=== PATIENT | female | born 1985 | race Caucasian/White ===

== ENCOUNTER → 2020-06-21 | Outpatient (CLI) | payer OTHER, SELFPAY ==
[2020-06-21 14:24] VITALS: BMI 26.3
[2020-06-26 18:52] LABS: HPV APTIMA, High Risk Negative (Negative)
== END | disposition home or self-care (01) ==
LOC: LABSPEC 16:37
PROVIDERS: PCP Family Medicine; Referring Provider Nurse Practitioner Women's Health; Visit Provider Nurse Practitioner Women's Health
DX: N89.8 Other specified noninflammatory disorders of vagina (principal); Z12.4 Encounter for screening for malignant neoplasm of cervix
CPT/HCPCS: 87070; 87205; 87624; 88175; G0145

== ENCOUNTER → 2020-10-16 | Outpatient (CLI) | payer OTHER, SELFPAY | END | disposition home or self-care (01) | PROVIDERS: PCP Family Medicine; Referring Provider Physician Assistant Surgical; Visit Provider Physician Assistant Surgical | DX: U07.1 COVID-19 (principal) | CPT/HCPCS: 87635; U0005; U0003 ==

== ENCOUNTER → 2022-01-09 | Outpatient (CLI) | payer OTHER, SELFPAY ==
[2022-01-09 13:48] LABS: Prolactin 13.6 ng/mL; T4 Free Direct 1.08 ng/dL (0.76-1.46)
[2022-01-14 11:31] LABS: Testosterone Free 2.1 pg/mL (0.0-4.2)
[2022-01-16 21:30] LABS: 17-Hydroxyprogesterone 45 ng/dL (.)
== END | disposition home or self-care (01) ==
PROVIDERS: PCP Family Medicine; Referring Provider Registered Nurse; Visit Provider Registered Nurse
DX: N92.6 Irregular menstruation, unspecified (principal); Z13.29 Encounter for screening for other suspected endocrine disorder
CPT/HCPCS: 36415; 82627; 83498; 84146; 84402; 84439; 84443; 82626

== ENCOUNTER → 2022-01-13 | Outpatient (CLI) | payer OTHER, SELFPAY ==
--- NOTE | 2022-01-13 11:21 | US_ITS ---
STUDY: ULTRASOUND TRANSVAGINAL CLINICAL: Female, 36 years old. Irregular menses TECHNIQUE: Transvaginal COMPARISON: None. FINDINGS: Normal uterine size measuring 9.2 x 5.3 x 4.0 cm in maximal craniocaudal dimension. There are no myometrial masses. Normal endometrial thickness measuring 7.7 mm. There are no endometrial masses, and there is no fluid in the endometrial cavity. Nabothian cysts in the uterine cervix. Small amount of fluid in the cervical canal. Normal right ovary, measuring 2.5 x 1.9 x 1.6 cm. There are multiple follicles without a dominant cyst. Normal left ovary, measuring 4.1 x 1.6 x 1.8 cm. There are multiple follicles, with the largest measuring 1.9 x 1.7 x 1.6 cm. There is no free fluid in the pelvis. Polycystic ovary disease: No. US/Transvaginal Non- IMPRESSION: Multiple nabothian cysts. Bilateral ovarian follicles. Electronically Signed: Surinder Harris MD at 16:56 EST ,
== END | disposition home or self-care (01) ==
LOC: US 11:21
PROVIDERS: PCP Family Medicine; Referring Provider Registered Nurse; Visit Provider Registered Nurse
DX: N92.6 Irregular menstruation, unspecified (principal)
CPT/HCPCS: 76830

== ENCOUNTER 2024-05-22 18:50 | Emergency (ER) | payer OTHER, SELFPAY ==
[2024-05-22 18:53] VITALS: BP 109/78; PULSE 71; RESP 18; TEMP 37; O2SAT 100; BMI 26.9
--- NOTE | 2024-05-22 19:19 | EX.ED.DYSGE1 ---
HPI <MCKAY Shahid - Last Filed: 05/23/24 11:34> History of Present Illness Chief Complaint: Fever Narrative Narrative: 38-year-old female with no past medical history states last night she developed a fever, chills, and generalized body pain. [place] like her skin was painful to the touch. Her temperature today ranged anywhere from 98 to 100 ?F. She took Excedrin around 1 PM. She denies nausea, vomiting, neck pain or stiffness, chest pain, shortness of breath, or upper respiratory symptoms. No vomiting or diarrhea. No dysuria. PFSH <MCKAY Shahid - Last Filed: 05/23/24 11:34> PFSH Home Medications ?Medication ?Instructions ?Recorded ?Last Taken ?Type dextroamphetamine-amphetamine 10 10 mg PO DAILY 02/03/17 05/21/24 History mg tablet (Adderall) dextroamphetamine-amphetamine 20 20 mg PO DAILY 02/03/17 05/20/24 History mg tablet (Adderall) Allergy/AdvReac Type Severity Reaction Status Date / Time No Known Allergies Allergy Verified 05/22/24 19:04 Surgical History History of carpal tunnel surgery History of breast augmentation Social History household members: spouse and children number of children: 1 current occupational status: employed current occupation: [employer] [place] history of recent travel: No sexually active: Yes Smoking Status: Never smoker alcohol intake: never substance use type: does not use what type of physical activity do you participate in: aerobics and weight training frequency: 3-4 times per week seatbelt use: always do you feel safe at home: Yes additional social history: - Tal CASTILLO <MCKAY Shahid - Last Filed: 05/23/24 11:34> ROS ED ROS Narrative Constitutional: Positive for fever, chills, malaise. CVS: Negative for chest pain. Respiratory: Negative for shortness of breath, cough. GI: Negative for abdominal pain, nausea, vomiting, diarrhea. : Negative for dysuria. Neuro: Positive for headache. EXAM <MCKAY Shahid - Last Filed: 05/23/24 11:34> Physical Exam Narrative Exam Narrative: CONST: Patient sitting in no acute distress. EYES: Normal inspection. ENT: Normal inspection, moist mucous membranes. NECK: Normal inspection. No meningismus. RESP: No respiratory distress, CTAB. CVS: Regular rate and rhythm, no murmur, no gallop. ABD: Soft and nontender, no guarding or rebound, nondistended. SKIN: Color normal, no rash, warm, dry, intact. EXTREMITIES: Normal appearance, no pedal edema. NEURO: Alert and answering questions appropriately. PSYCH: Normal affect. Const Vital Signs: 05/22/24 18:53 05/22/24 19:15 05/22/24 20:42 Temperature 98.6 F 98.3 F Temperature Source Oral Pulse Rate 71 77 Respiratory Rate 18 16 Respiratory Effort Normal Respiratory Pattern Normal Blood Pressure 109/78 110/78 Blood Pressure Mean 88 88 Pulse Ox 100 98 Oxygen Delivery Method Room Air <Dr. Km Lock DO - Last Filed: 05/22/24 21:37> Physical Exam Const Vital Signs: 05/22/24 18:53 05/22/24 19:15 05/22/24 20:42 Temperature 98.6 F 98.3 F Temperature Source Oral Pulse Rate 71 77 Respiratory Rate 18 16 Respiratory Effort Normal Respiratory Pattern Normal Blood Pressure 109/78 110/78 Blood Pressure Mean 88 88 Pulse Ox 100 98 Oxygen Delivery Method Room Air [facility] <MCKAY Shahid - Last Filed: 05/23/24 11:34> [facility] Narrative Medical decision making narrative: 38-year-old female presents with fever, headache and generalized body pain over the last 2 days. She has no other symptoms. She appears well and nontoxic and is afebrile and hemodynamically stable here. Exam is completely benign. She has no signs of meningitis encephalitis. Her viral swab for COVID/flu/RSV is negative. She had some improvement after IM Toradol. At this time since she has no other symptoms like a cough or dysuria I do not think any other testing would be helpful. I recommended [id number] analgesia and discussed return precautions. She was discharged in stable condition. <Dr. Km Lock DO - Last Filed: 05/22/24 21:37> [facility] History & Record Review Discussion w/independent historian: Patient Lab Data Attestation: I reviewed the patient's lab results. Treatment and Re-Evaluation :: I have personally performed a face to face assessment of the patient and have reviewed the CRIO Note. I performed a substantive portion of the visit including all aspects of the following. My berry findings include: History is 38-year-old female presenting to the emergency room with recurrent fever over the past 24 hours. She notes hyperesthesia of the skin. She denies cough runny nose sore throat vomiting diarrhea. She does endorse a headache. No rashes. Exam is afebrile vital signs are stable. Patient has no meningeal signs. There is no photophobia. No stiff neck. Lung sounds are clear and equal. Oropharyngeal exam is normal. Medical Decison Making COVID influenza and RSV swab was negative. Clinically I would suspect a viral illness but the patient does not really have localizing signs of infection. Would recommend continued supportive care monitoring for any changes return if worsening or concerns Discharge Plan Triage Chief Complaint: Fever Other Complaint: Headache ED Midlevel Provider: Mami Camarena ED Provider: Km Lock Dx/Rx/DC Orders Clinical Impression: Acute viral syndrome, Myalgia Instructions: ED Myalgias, ED Viral Syndrome (Adult) Prescriptions: No Action dextroamphetamine-amphetamine [Adderall] 10 MG tablet 10 mg PO DAILY dextroamphetamine-amphetamine [Adderall] 20 MG tablet 20 mg PO DAILY Primary Care Provider: Alex Banda Referrals: Alex Banda DO [Primary Care Provider] - Activity Restrictions/Additional Instructions: You tested negative for COVID/influenza/RSV. At this time with your fever and bodyaches I suspect you have some kind of viral illness. You can alternate Tylenol and ibuprofen every 3 hours as needed, rest and drink plenty of fluids. If you develop new or worsening symptoms please be reevaluated. Print Language: Azeri Disposition Disposition: Home, Self Care Discharge Date/Time: 05/22/24 20:43
[2024-05-22] MEDS: Ketorolac 15 MG/ML Vial IM (19:34)
[2024-05-22 20:42] VITALS: BP 110/78; PULSE 77; RESP 16; TEMP 36.8; O2SAT 98
== END 2024-05-22 20:43 | disposition home or self-care (01) ==
PROVIDERS: Emergency Provider Emergency Medicine; PCP Family Medicine; Visit Provider Emergency Medicine
DX: B34.9 Viral infection, unspecified (principal); M79.10 Myalgia, unspecified site; R51.9 Headache, unspecified; R20.3 Hyperesthesia
CPT/HCPCS: 87631; 96372; 99283

== ENCOUNTER → 2024-09-16 | Outpatient (CLI) | payer OTHER, SELFPAY ==
--- NOTE | 2024-09-16 07:29 | BI_ITS ---
EXAM: SCRN MAMM (CAD)W/EVELINA BILAT DATE: 09/16/2024 CLINICAL HISTORY: F, Age 38 y/o , SCREENING TECHNIQUE: SCRN MAMM (CAD)W/EVELINA BILAT COMPARISON: Baseline examination, no priors. FINDINGS: TISSUE DENSITY: There are scattered areas of fibroglandular density. Bilateral Breast Mammographic Findings: There are bilateral retro-pectoral silicone gel implants. No significant masses, calcifications or other abnormalities are identified. BI/SCRN MAMM (CAD)W/EVELINA BILAT IMPRESSION: There is no mammographic evidence of malignancy. OVERALL FINAL ASSESSMENT BI-RADS 1: NEGATIVE. RECOMMENDATION: Routine annual follow-up in 1 Year A letter with findings and recommendations will be mailed to the patient. Reading Location: [id number]
--- NOTE | 2024-09-16 07:29 | BI_ITS ---
EXAM: SCRN MAMM (CAD)W/EVELINA BILAT DATE: 09/16/2024 CLINICAL HISTORY: F, Age 38 y/o , SCREENING TECHNIQUE: SCRN MAMM (CAD)W/EVELINA BILAT COMPARISON: Baseline examination, no priors. FINDINGS: TISSUE DENSITY: There are scattered areas of fibroglandular density. Bilateral Breast Mammographic Findings: There are bilateral retro-pectoral silicone gel implants. No significant masses, calcifications or other abnormalities are identified. BI/SCRN MAMM (CAD)W/EVELINA BILAT IMPRESSION: There is no mammographic evidence of malignancy. OVERALL FINAL ASSESSMENT BI-RADS 1: NEGATIVE. RECOMMENDATION: Routine annual follow-up in 1 Year A letter with findings and recommendations will be mailed to the patient. Reading Location: [id number]
--- OUTSIDE RECORDS SUMMARY | 2024-09-16 07:42 | XMS RPT_ITS | CCD ---
Author Organization [facility] CliniSynm Care Team Providers Care Ledger Clerk Name Role Phone Unavailable Primary Care Provider Unavailruslan Suárez MD, Real Mullen Primary Care Provider Rosa Isela Lanza Unavailable Pool STRINGER, Rosa Isela Macedo Primary Care Provider Unavailable Unavailable Dr. ROSA ISELA LANZA Attending Unavail able POOL, Dr. ROSA ISELA MACEDO Referring Unavail able POOL, Dr. ROSA ISELA MACEDO Primary Care Unavail able POOL, Dr. ROSA ISELA MACEDO Primary Care Unavail able POOL, Dr. ROSA ISELA MACEDO Attending Unavail able POOL, Dr. ROSA ISELA MACEDO Referring Unavail able POOL, Dr. ROSA ISELA MACEDO Primary Care Unavail able Manoj Ojeda Attending Unavailable POOL, Dr. ROSA ISELA MACEDO Referring Unavail able Manoj Ojeda Attending Unavailable Manoj Ojeda Referring Unavailable POOL, Dr. ROSA ISELA MACEDO Primary Care Unavail able Manoj Ojeda Attending Unavailable Manoj Ojeda Referring Unavailable POOL, Dr. ROSA ISELA MACEDO Primary Care Unavail able Manoj Ojeda Attending Unavailable Manoj Ojeda Referring Unavailable POOL, Dr. ROSA ISELA MACEDO Primary Care Unavail able Rosa Isela Lanza MD Primary Care Provider Rosa Isela Lanza MD Primary Care Provider Dr. Alex Katz Primary Care Provider [phone] Dr. Alex Katz Referring Provider MACRINA Dumont Attending Provider [phone] Dr. Manoj Ojeda Admitting Unavail able Rusty, Dr. Manoj Machado Attending Unavail able Dr. Manoj Ojeda Referring Unavail able Pool, Dr. Rosa Isela Macedo Primary Care Unavail able Rusty, Dr. Manoj Machado Admitting Unavail able Rusty, Dr. Manoj Machado Attending Unavail able Rusty, Dr. Manoj Machado Referring Unavail able Pool, Dr. Rosa Isela Macedo Primary Care Unavail able LILY II, MARILYNN MABRY Attending Un available ROSA ISELA LANZA Primary Care Unavailable HASSMANN II, MARILYNN MABRY Admitting Un available HASSMANN II, MARILYNN MABRY Referring Un available ROSA ISELA LANZA Primary Care Unavailable HASSMANN II, MARILYNN MABRY Attending Un available ROSA ISELA LANZA Primary Care Unavailable BAUDILIO FIELD Attending Unavaila ble ROSA ISELA LANZA Primary Care Unavailable BAUDILIO FIELD Referring Unavaila ble ROSA ISELA LANZA Primary Care Unavailable BAUDILIO FIELD Admitting Unavaila ble BAUDILIO FIELD Referring Unavaila ble ROSA ISELA LANZA Primary Care Unavailable BAUDILIO FIELD Admitting Unavaila ble BAUDILIO FIELD Attending Unavaila ble ROSA ISELA LANZA Primary Care Unavailable Rosa Isela Lanza MD Primary Care Provider LILY SMITH, MARILYNN MABRY Attending Un available ROSA ISELA LANZA Primary Care Unavailable Alex Katz DO Primary Care Provider ALEX KATZ Primary Care Unavailable MEIR FARRELL Referring Unavailable ALEX KATZ Primary Care Unavailable MEIR FARRELL Attending Unavailable Rosa Isela Lanza MD Primary Care Provider Dr. Alex Katz DO Primary Care Provider Dr. Km Lock DO Emergency Provider Alex Katz Primary Care Unavailable Alex Katz Referring Unavailable Raina Singer Attending Unavailable Km Lock Attending Unavailable Alex Katz Primary Care Unavailable GENIE RODAS Referring Unavailable ROSA ISELA LANZA Primary Care Unavailable ROSA ISELA LANZA Attending Unavailable ROSA ISELA LANZA Primary Care Unavailable ROSA ISELA LANZA Attending Unavailable ROSA ISELA LANZA Primary Care Unavailable ROSA ISELA LANZA Attending Unavailable ROSA ISELA LANZA Primary Care Unavailable GENIE RODAS Attending Unavailable ROSA ISELA LANZA Referring Unavailable ROSA ISELA LANZA Primary Care Unavailable GENIE RODAS Referring Unavailable ROSA ISELA LANZA Primary Care Unavailable Medications Current Medications Medication Drug Class(es) Dates Sig (Normalized) Sig (Original) 24 hr amphetamine aspartate 5 mg / amphetamine sulfate 5 mg / dextroamphetamine saccharate 5 mg / dextroamphetamine sulfate 5 mg extended release oral capsule (20 sources) Central Nervous System Stimulant Start: 03-30-2023 amphetamine-dext roamphetamine XR (Adderall XR) 20 MG 24 hr capsule 03/30/2023 Active Start: 02-03-2017 take 1 tablet by dodie th once daily Dextroamphetamine-Amphetamine (Adderall 10 Mg Tablet) 10 MG tablet Active 10 mg PO DAILY February 03, 2017 1:00am Start: 02-03-2017 take 1 tablet by dodie th once daily Dextroamphetamine-Amphetamine (Adderall 20 Mg Tablet) 20 MG tablet Active 20 mg PO DAILY February 03, 2017 1:00am Adderall XR 20 m g 24 hr capsule Take by mouth. Active take 1 tablet by dodie th once daily dextroamphetamine-amphetamine (ADDERALL) 30 mg tablet Take 1 (one) tablet (30 mg total) by mouth daily . 0 Active take 1 capsule by mo uth once daily in the morning amphetamine-dextroamphetamine (ADDERALL XR) 10 MG extended release capsule Take 10 mg by mouth every morning. 0 Active cetirizine hydrochloride 10 mg oral tablet (11 sources) Histamine-1 Receptor Antagonist Start: 06-08-2022 take 1 tablet by mouth once daily cetirizine (ZyrTEC) 10 mg tablet Take 1 tablet (10 mg) by mouth once daily. 06/08/2022 Active diclofenac sodium 0.03 mg/mg topical gel (3 sources) Nonsteroidal Anti-inflammatory Drug Start: 06-02-2024 diclofenac sodium 3 % gel Indications: Bilateral elbow joint pain Apply topically 2 times a day. 100 g 1 06/02/2024 Active glycopyrrolate 1 mg oral tablet (5 sources) Start: 05-10-2024 take 1 tablet by mouth every twelve hours glycopyrrolate (Robinul) 1 mg tablet Take 1 tablet (1 mg) by mouth every 12 hours. 05/10/2024 Active Start: 01-26-2023 End: 04-01-2024 ibuprofen 600 mg oral tablet (1 source) Nonsteroidal Anti-inflammatory Drug Start: 03-16-2018 take 1 tablet by mouth every eight hours as needed ibuprofen 600 MG Tab tablet Take 1 tablet by mouth every 8 hours as needed for Moderate Pain or Severe Pain. 30 tablet 0 03/16/2018 Active meloxicam 15 mg oral tablet (8 sources) Nonsteroidal Anti-inflammatory Drug Start: 05-06-2024 End: 05-06-2025 take 1 tablet by mouth once daily meloxicam (Mobic) 15 mg tablet Indications: Bilateral elbow joint pain Take 1 tablet (15 mg) by mouth once daily. 30 tablet 1 05/06/2024 05/06/2025 Active Start: 07-08-2022 End: 09-06-2022 take 1 tablet by mouth once daily meloxicam (MOBIC) 15 MG tablet Take 1 (one) tablet (15 mg total) by mouth daily . 30 tablet 1 07/08/2022 09/06/2022 Active methylPREDNISolone (2 sources) Corticosteroid Start: 08-25-2023 End: 09-01-2023 methylPREDNISolone (Medrol Dospak) 4 mg tablets Indications: Rash and nonspecific skin eruption Take as directed on package. 21 tablet 08/25/2023 09/01/2023 Active Start: 01-14-2022 End: 01-20-2022 methylPREDNISolone (MEDROL D OSEPACK) 4 mg tablet Follow package directions . 21 tablet 0 01/14/2022 01/20/2022 Active predniSONE 10 mg oral tablet (2 sources) Start: 04-01-2024 End: 05-06-2024 predniSONE (Deltasone) 10 mg tablet Indications: Bilateral elbow joint pain 4 tabs daily for 3 days, 3 tabs daily for 3 days, 2 tabs daily for 3 days, 1 tab daily for 3 days, then discontinue 30 tablet 04/01/2024 05/06/2024 Discontinued (Therapy completed) progesterone 100 mg oral capsule (4 sources) Progesterone Start: 04-10-2022 take 1 capsule by mouth once daily progesterone (PROMETRIUM) 100 MG capsule Take 1 (one) capsule (100 mg total) by mouth nightly . 0 04/10/2022 Active thyroid (snf) 60 mg oral tablet (12 sources) Start: 04-22-2024 take 1 tablet by mouth in the morning RIDE ATTENDANT Thyroid 60 mg tablet Take 1 tablet (60 mg) by mouth early in the morning.. 04/22/2024 Active Start: 07-24-2022 End: 04-01-2024 take 1 tablet by mouth once daily RIDE ATTENDANT Thyroid 60 mg tablet Take 1 tablet (60 mg) by mouth once daily. 07/24/2022 04/01/2024 Discontinued (Therapy completed) Completed/Discontinued Medications Medication Drug Class(es) Dates Sig (Normalized) Sig (Original) acetaminophen 325 mg / HYDROcodone bitartrate 5 mg oral tablet (8 sources) Opioid Agonist Start: 11-26-2021 take 1 tablet by mouth every four to six hours as needed HYDROcodone-Aceta minophen 5-325 MG Oral Tablet TAKE 1 TABLET EVERY 4 TO 6 HOURS NEEDED. Quantity: 26 Refills: 0 Ordered: 26-Nov-2021 Manoj Ojeda DO Start : 26-Nov-2021 Active Start: 10-28-2021 HYDROcodone-Ac etaminophen 5-325 MG Oral Tablet Quantity: 20 Refills: 0 Ordered: 28-Oct-2021 DO Start : 28-Oct-2021 Active amoxicillin 500 mg oral tablet (3 sources) Penicillin-class Antibacterial Start: 02-03-2017 End: 06-21-2020 take 1 tablet by mouth three times daily Amoxicillin 500 MG tablet Discontinued 500 mg PO THREE TIMES A DAY February 03, 2017 1:00am June 21, 2020 2:25pm Bupivacaine (9 sources) Amide Local Anesthetic Start: 07-08-2022 End: 07-08-2022 BUPivacaine HCl (MARCAINE) 0.5 % (5 mg/mL) injection 1 mL Start: 07-08-2022 End: 07-09-2022 BUPivacaine HCl (MARCAINE) 0 .5 % (5 mg/mL) injection 1 mL Start: 01-28-2022 End: 01-28-2022 bupivacaine HCl (MARCAINE) 0 .5 % (5 mg/mL) injection 1 mL Start: 01-28-2022 End: 01-28-2022 bupivacaine HCl (MARCAINE) 0 .5 % (5 mg/mL) injection 1 mL doxycycline hyclate 100 mg oral tablet (3 sources) Tetracycline-class Drug Start: 11-26-2021 take 1 tablet by mouth once daily Doxycycline Hyclate 100 MG Oral Tablet TAKE 1 TABLET EVERY 12 HOURS DAILY. Quantity: 14 Refills: 0 Ordered: 26-Nov-2021 Manoj Ojeda DO Start : 26-Nov-2021 Active famciclovir 500 mg oral tablet (18 sources) Herpes Simplex Virus Nucleoside Analog DNA Polymerase Inhibitor Start: 11-03-2020 Famciclovir 500 MG Oral Tablet Quantity: 30 Refills: 0 Ordered: 05-Nov-2020 DO Start : 03-Nov-2020 Active take 3 tablets by mouth every ho ur famciclovir (Famvir) 500 mg tablet take 3 tablets by mouth WITHIN 1 HOUR OF ONSET OF COLD SORE SYMPTOMS Active medroxyPROGESTERone acetate 5 mg oral tablet (2 sources) Progestin Start: 01-16-2022 End: 10-08-2023 take 1 tablet by mouth once daily Medroxyprogesterone (Provera) 5 mg tablet Discontinued 5 mg PO DAILY January 16, 2022 1:00am October 08, 2023 11:00am metroNIDAZOLE 500 mg oral tablet (3 sources) Nitroimidazole Antimicrobial Start: 06-26-2020 End: 10-16-2020 take 1 tablet by mouth twice daily Metronidazole (Flagyl) 500 mg tablet Discontinued 500 mg PO TWICE A DAY June 26, 2020 12:00am October 16, 2020 9:17am 1 ml triamcinolone acetonide 40 mg/ml injection (9 sources) Corticosteroid Start: 07-08-2022 End: 07-08-2022 triamcinolone acetonide (KENALOG-40) injection 40 mg Start: 07-08-2022 End: 07-08-2022 triamcinolone acetonide (EMMIE ALOG-40) injection 40 mg Start: 07-08-2022 End: 07-08-2022 triamcinolone acetonide (EMMIE ALOG-40) injection 40 mg Start: 07-08-2022 End: 07-08-2022 triamcinolone acetonide (EMMIE ALOG-40) injection 40 mg Start: 07-08-2022 End: 07-09-2022 triamcinolone acetonide (EMMIE ALOG-40) injection 40 mg Start: 01-28-2022 End: 01-28-2022 triamcinolone acetonide (EMMIE ALOG-40) injection 40 mg Start: 01-28-2022 End: 01-28-2022 triamcinolone acetonide (EMMIE ALOG-40) injection 40 mg Start: 01-28-2022 End: 01-28-2022 triamcinolone acetonide (EMMIE ALOG-40) injection 40 mg Start: 01-28-2022 End: 01-28-2022 triamcinolone acetonide (EMMIE ALOG-40) injection 40 mg Problems Active Problems Problem Classification Problem Date Documented Date Episodic/Chronic Attention-deficit, conduct, and disruptive behavior disorders (1 source) Attention-deficit hyperactivity disorder, unspecified type; Translations: [Attention-deficit hyperactivity disorder, unspecified type] Onset: 11-13-2021 Chronic Disorders usually diagnosed in infancy, childhood, or adolescence (20 sources) Attention deficit hyperactivity disorder, predominantly inattentive type; Translations: [Attention deficit disorder without mention of hyperactivity] Onset: 09-15-2022 09-15-2022 Chronic Fever of unknown origin (1 source) Fever, unspecified; Translations: [Fever, unspecified] Onset: 05-25-2024 Episodic Immunizations and screening for infectious disease (3 sources) Contact with and (suspected) exposure to other viral communicable diseases; Translations: [Contact with or suspected exposure to other viral communicable disease] 10-16-2020 Episodic Menstrual disorders (8 sources) Irregular periods; Translations: [Irregular menstrual cycle] Chronic Other and unspecified benign neoplasm (1 source) Dysplastic nevus of skin; Translations: [Melanocytic nevi, unspecified] 09-15-2022 Episodic Other connective tissue disease (1 source) Swelling of lower limb; Translations: [Other specified soft tissue disorders] Episodic Other connective tissue disease (3 sources) Bilateral chronic pain of feet; Translations: [Pain in limb] Episodic Other connective tissue disease (5 sources) Pain in right foot; Translations: [Pain in right foot] Episodic Other connective tissue disease (1 source) Pain in both feet; Translations: [Pain in right foot] Episodic Other connective tissue disease (4 sources) Calcaneal spur of right foot; Translations: [Calcaneal spur, right foot] Episodic Other connective tissue disease (1 source) Calcaneal spur of left foot; Translations: [Calcaneal spur, left foot] Episodic Other connective tissue disease (2 sources) Bilateral plantar fasciitis; Translations: [Plantar fascial fibromatosis] Episodic Other connective tissue disease (4 sources) Plantar fasciitis; Translations: [Plantar fascial fibromatosis] 07-08-2022 Episodic Other connective tissue disease (2 sources) Pain in right foot; Translations: [Pain in right foot] Onset: 07-08-2022 Episodic Other connective tissue disease (2 sources) Plantar fascial fibromatosis; Translations: [Plantar fascial fibromatosis] Onset: 07-08-2022 Episodic Other connective tissue disease (2 sources) Calcaneal spur, right foot; Translations: [Calcaneal spur, right foot] Onset: 07-08-2022 Episodic Other connective tissue disease (1 source) Muscle pain; Translations: [Myalgia, unspecified site] 05-22-2024 Episodic Other nervous system disorders (10 sources) Carpal tunnel syndrome; Translations: [Carpal tunnel syndrome] Chronic Other nervous system disorders (2 sources) Carpal tunnel syndrome, unspecified upper limb; Translations: [Carpal tunnel syndrome, unspecified upper limb] Onset: 09-27-2021 Chronic Other nervous system disorders (4 sources) Carpal tunnel syndrome, left upper limb; Translations: [Carpal tunnel syndrome, left upper limb] Onset: 11-13-2021 Chronic Other nervous system disorders (4 sources) Carpal tunnel syndrome, right upper limb; Translations: [Carpal tunnel syndrome, right upper limb] Onset: 10-28-2021 Chronic Other nervous system disorders (12 sources) Numbness of hand; Translations: [Disturbance of skin sensation] Episodic Other nervous system disorders (14 sources) Paresthesia of hand ; Translations: [Disturbance of skin sensation] Episodic Other non-traumatic joint disorders (12 sources) Bilateral elbow joint pain; Translations: [Pain in right elbow] Onset: 06-02-2024 04-01-2024 Episodic Other non-traumatic joint disorders (4 sources) Pain in right elbow; Translations: [Pain in right elbow] Onset: 05-06-2024 Episodic Other non-traumatic joint disorders (4 sources) Pain in left elbow; Translations: [Pain in left elbow] Onset: 05-06-2024 Episodic Other non-traumatic joint disorders (2 sources) Pain in elbow; Translations: [Elbow Pain] Onset: 04-01-2024 Episodic Other upper respiratory infections (3 sources) Acute upper respiratory infection; Translations: [Acute upper respiratory infection, unspecified] 10-16-2020 Episodic Superficial injury; contusion (7 sources) Contusion of toe; Translations: [Contusion of right lesser toe(s) without damage to nail, initial encounter] Onset: 03-16-2018 08-03-2023 Episodic Unclassified (2 sources) Rash; Translations: [Rash] Onset: 08-25-2023 Viral infection (1 source) Acute viral disease; Translations: [Viral infection, unspecified] 05-22-2024 Episodic Past or Other Problems Problem Classification Problem Date Documented Da te Episodic/Chronic Other connective tissue disease (2 sources) Pain in left foot; Translations: [Pain in left foot] Onset: 01-14-2022 Episodic Other connective tissue disease (2 sources) Calcaneal spur, left foot; Translations: [Calcaneal spur, left foot] Onset: 01-14-2022 Episodic Other screening for suspected conditions (not mental disorders or infectious disease) (1 source) Encounter for other screening for malignant neoplasm of breast; Translations: [Encounter for other screening for malignant neoplasm of breast] Onset: 10-08-2023 Episodic Other skin disorders (2 sources) Eruption; Translations: [Rash and other nonspecific skin eruption] Episodic Results Test Name Value Interpretation Reference Range Facility POINT OF CARE ULTRASOUND NO CHARGEon 06-02-2024 POINT OF CARE ULTRASOUND NO CHARGE These images are not reportable by radiology and will not be interpreted by Radiologists. [facility] US Abdomenon 06-02-2024 These images are not reportable by radiology and will not be interpreted by Radiologists. IMAGING XR ELBOW 3+ VIEWS BILATERALo n 06-02-2024 XR ELBOW 3+ VIEWS BILATERAL Interpreted By: Mic Fowler, STUDY: XR ELBOW 3+ VIEWS BILATERAL INDICATION: Signs/Symptoms:bilatera l elbow pain. COMPARISON: None ACCESSION NUMBER(S): [id number] ORDERING CLINICIAN: GENIE RODAS FINDINGS: Small right triceps spur. No evidence of fracture. Bilateral joint spaces are normal. IMPRESSION: Small right triceps insertion spur. Otherwise normal radiographs bilateral elbows. Signed by: Mic Fowler 06/04/2024 2:43 PM Dictation workstation: [id number] [facility] Emergency Department Summary on 05-22-2024 Emergency Department Summary [facility] Medical Records Department [address] [place] [address] Emergency Department Summary 05/22/24 MR#: [id number] Acct: [id number] Name: JUAN JOSE BOWERS Rep #: [id number] : 1985 38 From: Km Lock DO PCP: Dr. Alex Katz, DO Status:DEP ER Location: ED HPI History of Present Illness Chief Complaint: Fever Narrative Narrative: 38-year-old female with no past medical history states last night she developed a fever, chills, and generalized body pain. [place] like her skin was painful to the touch. Her temperature today ranged anywhere from 98 to 100 ???F. She took Excedrin around 1 PM. She denies nausea, vomiting, neck pain or stiffness, chest pain, shortness of breath, or upper respiratory symptoms. No vomiting or diarrhea. No dysuria. PFSH PFSH Home Medications ???Medication ???Instructions ???Recorded ???Last Taken ???Type dextroamphetamine-amphe tamine 10 10 mg PO DAILY 02/03/17 05/21/24 H istory mg tablet (Adderall) dextroamphetamine-amphe tamine 20 20 mg PO DAILY 02/03/17 05/20/24 H istory mg tablet (Adderall) Allergy/AdvReac Type Severity Reaction Status Date / Time No Known Allergies Allergy Verified 05/22/24 19:04 Surgical History History of carpal tunnel surgery History of breast augmentation Social History household members: spouse and children number of children: 1 current occupational status: employed current occupation: [employer] in [place] history of recent travel: No sexually active: Yes Smoking Status: Never smoker alcohol intake: never substance use type: does not use what type of physical activity do you participate in: aerobics and weight training frequency: 3-4 times per week seatbelt use: always do you feel safe at home: Yes additional social history: - Tal CASTILLO ROS ED ROS Narrative Constitutional: Positive for fever, chills, malaise. CVS: Negative for chest pain. Respiratory: Negative for shortness of breath, cough. GI: Negative for abdominal pain, nausea, vomiting, diarrhea. : Negative for dysuria. Neuro: Positive for headache. EXAM Physical Exam Narrative Exam Narrative: CONST: Patient sitting in no acute distress. EYES: Normal inspection. ENT: Normal inspection, moist mucous membranes. NECK: Normal inspection. No meningismus. RESP: No respiratory distress, CTAB. CVS: Regular rate and rhythm, no murmur, no gallop. ABD: Soft and nontender, no guarding or rebound, nondistended. SKIN: Color normal, no rash, warm, dry, intact. EXTREMITIES: Normal appearance, no pedal edema. NEURO: Alert and answering questions appropriately. PSYCH: Normal affect. Const Vital Signs: 05/22/24 18:53 05/22/24 19:15 05/22/24 20:42 Temperature 98.6 F 98.3 F Temperature Source Oral Pulse Rate 71 77 Respiratory Rate 18 16 Respiratory Effort Normal Respiratory Pattern Normal Blood Pressure 109/78 110/78 Blood Pressure Mean 88 88 Pulse Ox 100 98 Oxygen Delivery Method Room Air Physical Exam Const Vital Signs: 05/22/24 18:53 05/22/24 19:15 05/22/24 20:42 Temperature 98.6 F 98.3 F Temperature Source Oral Pulse Rate 71 77 Respiratory Rate 18 16 Respiratory Effort Normal Respiratory Pattern Normal Blood Pressure 109/78 110/78 Blood Pressure Mean 88 88 Pulse Ox 100 98 Oxygen Delivery Method Room Air MDM MDM MDM Narrative Medical decision making narrative: 38-year-old female presents with fever, headache and generalized body pain over the last 2 days. She has no other symptoms. She appears well and nontoxic and is afebrile and hemodynamically stable here. Exam is completely benign. She has no signs of meningitis encephalitis. Her viral swab for COVID/flu/RSV is negative. She had some improvement after IM Toradol. At this time since she has no other symptoms like a cough or dysuria I do not think any other testing would be helpful. I recommended [id number] analgesia and discussed return precautions. She was discharged in stable condition. MDM History Record Review Discussion w/independent historian: Patient Lab Data Attestation: I reviewed the patient's lab results. Treatment and Re-Evaluation :: I have personally performed a face to face assessment of the patient and have reviewed the CIRO Note. I performed a substantive portion of the visit including all aspects of the following. My berry findings include: History is 38-year-old female presenting to the emergency room with recurrent fever over the past 24 hours. She notes hyperesthesia of the skin. She denies cough runny nose sore throat vomiting diarrhea. She does endorse a headache. (more content not included)... [facility] Influenza virus A and B and SARS-CoV-2 (COVID-19) and Respiratory syncytial virus RNAOrdered By: Mami Camarena on 05-22-2024 SARS-CoV-2 (COVID-19) RNA HÉCTOR+probe Ql (Unsp spec) [facility] M100.678on 05-22-2024 M100.678 Pending SARS-CoV-2 (COVID 19) Negative INFLUENZA A Negative INFLUENZA B Negative RSV PCR Negative Normal [facility] Comment on above: Performed By: #### M 100.678 #### [facility] [address] 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 Complaint: annual, check breasts for lumps Is patient in pain?: No Allergies No Known Allergies Allergy (Verified 10/08/23 10:59) Medications ???Medication ???Instructions ???Recorded ???Confirmed ???Type dextroamphetamine-amphe tamine 10 10 mg PO DAILY 02/03/17 10/08/23 History mg tablet (Adderall) dextroamphetamine-amphe tamine 20 20 mg PO DAILY 02/03/17 10/08/23 History mg tablet (Adderall) Is last menstrual period known: No Post menopausal: No Patient : No : No Control Method: none [facility] Surgical History (Updated 10/08/23 @ 11:02 by Mya Caal) History of carpal tunnel surgery History of breast augmentation Social History household members: spouse and children number of children: 1 current occupational status: employed current occupation: [employer] in [place] history of recent travel: No sexually active: Yes Smoking Status: Never smoker alcohol intake: never substance use type: does not use what type of physical activity do you participate in: aerobics and weight training frequency: 3-4 times per week seatbelt use: always do you feel safe at home: Yes additional social history: - Tal History 1 Elective abortions Hx Para 1 Spontaneous abortions Hx # Term Pregnancies Ectopic pregnancies Hx # Pregnancies Multiple births # of living children 1 Past Pregnancies Del. Date Name GA/Weeks Outcome Route Bth Weight Gen Labor Lgth Anesthesia Del Locatn Provider FOB Unknown Estela 2010 HPI Encounter for routine gynecological examination Details: JUAN JOSE BOWERS is a 38 year old who presents for annual exam. She reports no issues or concerns. She has been using estrogen pellets as well as testosterone through [employer] [facility] [employer]. She reports she hadn't had a period for a number of months and then started using the pellets and had a brown spotting last month. Last PAP: 2020; negative History of abnormal PAP: no Last mammogram: no History of abnormal mammogram: no Colon cancer screening: no Other preventative health care screenings: Primary Care Doctor: Dr. Katz. Female Reproductive History Last Menstrual Period: 08/17/23 Frequency of changing protection: irregular Questions: metorrhagia: No, sexually active: Yes (-vasectomy), dyspareunia: No and PCB: No ROS Const Constitutional: Denies chills, fatigue, fever(s), headache(s) or weight loss Eyes Eyes: Denies change in vision ENT ENT: Denies dizziness Resp Resp: Denies cough GI GI: Denies abdominal pain, constipation or nausea : Denies difficulty voiding, dysuria, hematuria, pelvic pain, prolapse symptoms, urinary incontinence, vaginal discharge, vaginal dryness, vaginal odor or vaginal pruritus Skin Skin/Breast: Denies alopecia or rash Neuro Neuro: Denies dizziness Psych Psych: Denies anxiety or depression Endo Endo: Denies cold intolerance, excessive sweating or heat intolerance Exam Const General: cooperative, healthy appearing, comfortable, no acute distress, well groomed and well hydrated Nutritional Appearance: well nourished Orientation: alert, awake and oriented x3 HENMT Head: normal to inspection and normocephalic Ears: hearing grossly normal bilaterally and external ears normal Nose: external nose normal Face and sinus: normal facial exam Eyes General: appearance normal, both eyes and all related structures Neck Neck: normal visual inspection, full ROM and no lymphadenopathy Thyroid: thyroid normal Chest Chest palpation inspection: normal inspection of the chest Breast inspection: normal inspection of the breasts and normal inspection of the axillae Breast palpation: normal palpation of the breasts, normal palpation of the axillae and no axillary lymphadenopathy Resp Effort Inspection: normal respiratory effort, able to speak in complete sentences and symmetric chest movement GI Inspection: normal to inspection Palpation: soft and no hepatosplenomegaly General: bladder normal to palpation External Female Exam: normal external appearance and normal appearance of the urethra Urethra: normal appearance of the urethra Speculum Exam - Vagina: normal appearance of the vag (more content not included)... Normal [facility] ED Nursing Noteon 08-03-2023 ED Nursing Note Patient arrived with steady gait to room 3. Patient states she was cutting down tree limb yesterday when it fell on her right ankle. Patient has abrasion on right ankle with some redness. Patient endorses limited ROM with right foot but is able to bear weight. Last dose of ibuprofen this AM. Normal [facility] ED Provider Noteon ED Provider Note EMERGENCY DEPARTMENT ENCOUNTER Pt Name: Juan Jose Bowers Birthdate 1985 Date of evaluation: 08/03/2023 ED Provider: Meir Farrell MD CHIEF COMPLAINT Chief Complaint Patient presents with Ankle Pain Right History from patient HISTORY OF PRESENT ILLNESS (Location/Symptom, Timing/Onset, Context/Setting, Quality, Duration, Modifying Factors, Severity) Note limiting factors. I wore appropriate PPE for the entirety of this encounter. HPI Juan Jose Bowers is a 37 y.o. who presents to the emergency department complaining of right ankle pain. Patient was working in the yard yesterday when a tree branch hit her on the medial malleolus. No previous injury. No other injury. No abuse or self injury. She is able to walk on it but it hurts. Dull mild aching pain worse to the touch or with movement. No radiation. Rested and put ice and elevated overnight. With nonresolution came to the emergency department today for x-ray. Tetanus immunizations up-to-date Nursing Notes were reviewed. Limitations to history: None Outside historians: None REVIEW OF SYSTEMS Review of Systems Constitutional: Negative for fever. Eyes: Negative for visual disturbance. Respiratory: Negative for shortness of breath. Cardiovascular: Negative for chest pain. Gastrointestinal: Negative for abdominal pain. Genitourinary: Negative for difficulty urinating. Musculoskeletal: Positive for arthralgias and gait problem. Negative for back pain, joint swelling, myalgias, neck pain and neck stiffness. Skin: Negative for rash. Neurological: Negative for headaches. Psychiatric/Behavioral: Negative for self-injury. Pertinent positives and negatives as per HPI PAST MEDICAL HISTORY Past Medical History: Diagnosis Date ADHD SURGICAL HISTORY History reviewed. No pertinent surgical history. CURRENT MEDICATIONS Previous Medications AMPHETAMINE-DEXTROAMPHE TAMINE XR (ADDERALL XR) 20 MG 24 HR CAPSULE THYROID (RIDE ATTENDANT THYROID) 60 MG TABLET ALLERGIES Patient has no known allergies. FAMILY HISTORY Family History Problem Relation Name Age of Onset ADD / ADHD Sister Other ([id number]) Mother attention disorder ADD / ADHD Sister SOCIAL HISTORY Social History Socioeconomic History Marital status: Tobacco Use Smoking status: Never Smokeless tobacco: Never Vaping Use Vaping status: Never Used Substance and Sexual Activity Alcohol use: No Drug use: No Social Determinants of Health Financial Resource Strain: Low Risk (08/30/2018) Received from [facility] Overall Financial Resource Strain (CARDIA) Difficulty of Paying Living Expenses: Not hard at all Food Insecurity: No Food Insecurity (08/30/2018) Received from [facility] Hunger Vital Sign Worried About Running Out of Food in the Last Year: Never true Ran Out of Food in the Last Year: Never true Transportation Needs: No Transportation Needs (08/30/2018) Received from [facility] PRAPARE - Transportation Lack of Transportation (Medical): No Lack of Transportation (Non-Medical): No SCREENINGS PHYSICAL EXAM ED Triage Vitals [08/03/23 1010] Temp Heart Rate Resp BP 36.3 ?C (97.3 ?F) 86 14 125/75 SpO2 Temp Source Heart Rate Source Patient Position 100 % Oral Monitor Sitting BP Location FiO2 (%) Right arm -- Physical Exam Constitutional: Appearance: Normal appearance. HENT: Head: Normocephalic and atraumatic. Eyes: Extraocular Movements: Extraocular movements intact. Pupils: Pupils are equal, round, and reactive to light. Musculoskeletal: General: Normal range of motion. Cervical back: Normal range of motion. Skin: General: Skin is warm and dry. Capillary Refill: Capillary refill takes less than 2 seconds. Neurological: General: No focal deficit present. Mental Status: She is alert. Ambulatory Not febrile not toxic Right ankle -2 cm abrasion over the medial malleolus without evidence of contamination erythema or drainage, mild tenderness medial malleolus, joint stable, no effusion, full range of motion, distal neurovascular intact, no tenderness lateral malleolus fifth metatarsal or proximal fibula DIAGNOSTIC RESULTS RADIOLOGY (Per Emergency Physician): Right ankle x-ray -no fracture or dislocation Interpretation per the Radiologist below, if available at the time of this note: XR ankle 3+ views right Final Result No evidence for acute fracture or dislocation. Plantar calcaneal heel spur Report Dictated on Electronically Signed By: Manoj Rivas MD Electronically Signed Date/Time: 08/03/2023 10:47 AM EDT EMERGENCY DEPARTMENT COURSE and DIFFERENTIAL DIAGNOSIS/MDM: Vitals: Vitals: 08/03/23 1010 BP: 125/75 BP Location: Right arm Patient Position: Sitting Pulse: 86 Resp: 14 Temp: 36.3 ?C (97.3 ?F) TempSrc: Oral SpO2: 100% Weight: 70.3 kg (155 lb) (more content not included)... Normal [facility] XR Ankle - right 3 Viewson 0 08-03-2023 No evidence for acute fracture or dislocation. Plantar calcaneal heel spur Report Dictated on Electronically Signed By: Manoj Rivas MD Electronically Signed Date/Time: 08/03/2023 10:47 AM T [facility] Patient Name: JUAN JOSE HENSON : 1985 Exam Date/Time: 08/03/2023 10:52 Procedure: XR ANKLE 3+ VIEWS RIGHT Ordering Provider: FARRELL NICHOLAS Reason For Exam: PAIN RIGHT ANKLE CLINICAL INDICATION: PAIN AP, lateral, and oblique plain film views of the right ankle were obtained. COMPARISON: None. FINDINGS: No fracture or dislocation of the right ankle is identified. The ankle mortise is intact. No soft tissue swelling or radiopaque foreign body. Plantar calcaneal heel spur is noted. [facility] Manoj Rivas MD - 08/03/2023 Patient Name: JUAN JOSE BOWERS : 1985 Exam Date/Time: 08/03/2023 10:52 Procedure: XR ANKLE 3+ VIEWS RIGHT Ordering Provider: FARRELL NICHOLAS Reason For Exam: PAIN RIGHT ANKLE CLINICAL INDICATION: PAIN AP, lateral, and oblique plain film views of the right ankle were obtained. COMPARISON: None. FINDINGS: No fracture or dislocation of the right ankle is identified. The ankle mortise is intact. No soft tissue swelling or radiopaque foreign body. Plantar calcaneal heel spur is noted. IMPRESSION: No evidence for acute fracture or dislocation. Plantar calcaneal heel spur Report Dictated on Electronically Signed By: Manoj Rivas MD Electronically Signed Date/Time: 08/03/2023 10:47 AM EDT [facility] Study observation (narrative) [facility] XR Ankle - right 3 ViewsOrde red By: Manoj Rivas on 08-03-2023 [facility] [employer] Work Phone: XR ORTHO FOOT RIGHTon 2022 XR ORTHO FOOT RIGHT 3 views of the right foot reviewed today AP MO and lateral. No acute fracture or dislocation of note. Plantar calcaneal spur noted. ?? Dictated by: DULCE MARIA ZUNIGA on ThuJuly 09, 2022 4:20:25 PM EDT Transcribed by: DUCLE MARIA ZUNIGA on ThuJuly 09, 2022 4:20:25 PM EDT Finalized by: DULCE MARIA ZUNIGA on ThuJuly 09, 2022 4:20:25 PM EDT Normal [facility] Comment on above: Order Comment: Injur y/Trauma or Illness?:Illness/Other How long have you had these symptoms (acute/chronic)?:Chronic Reason for exam?:Right foot pain History of cancer?:Unknown Surgeries, chemotherapy, or radiation?:No Type of Exam?:Initial Additional signs and symptoms?:H/o heel spurs No Panel Informationon 01-14 Radiology Study observation (narrative) [facility] XR FOOT LEFT 3+ VIEWS (STAND MEENAKSHI)on 01-14-2022 XR FOOT LEFT 3+ VIEWS (STANDARD) X-rays 3 views left foot: Patient has the beginning of an inferior calcaneal heel spur Dictated by: BAUDILIO FIELD on ThuJan 14, 2022 6:05:07 PM EST Transcribed by: BAUDILIO FIELD on ThuJan 14, 2022 6:05:07 PM EST Finalized by: BAUDILIO FIELD on ThuJan 14, 2022 6:05:07 PM EST [facility] Comment on above: Order Comment: Injur y/Trauma or Illness?:Illness/Other How long have you had these symptoms (acute/chronic)?:Acute Reason for exam?:left foot pain History of cancer?:n Surgeries, chemotherapy, or radiation?:n Type of Exam?:Initial Additional signs and symptoms?:n/a XR FOOT RIGHT 3+ VIEWS (JUAN C DARD)on 01-14-2022 XR FOOT RIGHT 3+ VIEWS (STANDARD) X-rays 3 views right foot: Patient has the beginning of an inferior calcaneal heel spur Dictated by: BAUDILIO FIELD on ThuJan 14, 2022 6:05:26 PM EST Transcribed by: BAUDILIO FIELD on ThuJan 14, 2022 6:05:26 PM EST Finalized by: BAUDILIO FIELD on ThuJan 14, 2022 6:05:26 PM EST Normal [facility] Comment on above: Order Comment: Injur y/Trauma or Illness?:Illness/Other How long have you had these symptoms (acute/chronic)?:Acute Reason for exam?:R foot pain History of cancer?:n Surgeries, chemotherapy, or radiation?:n Type of Exam?:Initial Additional signs and symptoms?:n/a XR Foot Left 3+ Views (Stand meenakshi)on 01-14-2022 X-rays 3 views left foot: Patient has the beginning of an inferior calcaneal heel spur [facility] XR Foot Right 3+ Views (Juan C darkimberly)on 01-14-2022 X-rays 3 views right foot: Patient has the beginning of an inferior calcaneal heel spur [facility] Laboratory - Chemistry and C hemistry - challengeon 01-09-2022 Free T4 [Mass/Vol] 1.08 ng/dL 0.76-1.46 [facility] Work Phone: No Panel Informationon 01-09 Dehydroepiandrosterone Sulfate 217.0 ug/dL 57.3-279.2 [facility] Work Phone: Thyroid Stimulating Hormone (TSH) 1.40 uIU/mL 0.358-3.74 [facility] Work Phone: Serum or plasma 17-hydroxypr ogesterone measurement (mass/volume)on 01-09-2022 17-Hydroxyprogesterone [Mass/Vol] 45 ng/dL . [facility] Work Phone: Comment on above: Adult Female Follicu lar 15 - 70 Luteal 35 - 290Performed at: - [facility] [id number] Director: Spencer Sanchez MD, Phone: [phone] Serum or plasma prolactin me asurement (mass/volume)on 01-09-2022 Prolactin [Mass/Vol] 13.6 ng/mL [facility] Work Phone: Comment on above: NORMAL REFERENCE RAN GES FEMALE NON- 2.2 - 30.3 ng/mL 8.1 - 347.6 ng/mL POST-MENOPAUSAL 0.7 - 31.5 ng/mL MALE 2.5 - 17.4 ng/mL Serum or plasma testosterone free measurement (mass/volume)on 01-09-2022 Testosterone Free [Mass/Vol] 2.1 pg/mL 0.0-4.2 [facility] Work Phone: Comment on above: Performed at: CB - [facility] [id number] [place], [place] [id number] Director: Aly Soriano PhD, Phone: [phone] at: BN - [facility] [address] [id number] Director: Spencer Sanchez MD, Phone: [phone] CBC AND DIFFERENTIALon 12-25 % AUTOMATED IMMATURE GRAN 0.6 % Normal 0.0 - 0.9 [facility] Comment on above: Result Comment: Corrie ture Granulocyte Count (IG) includes promyelocytes, myelocytes and metamyelocytes but does not include bands. Percent differential counts (%) should be interpreted in the context of the absolute cell counts (cells/L). Performed By: #### C BCDF #### [address] [address] Basophils (Bld) [#/Vol] 0.06 10*3/uL Normal 0.00 - 0.1 0 [facility] Comment on above: Performed By: #### C BCDF #### [address] [address] Basophils/100 WBC (Bld) 0.9 % Normal 0.0 - 2.0 [facility] Comment on above: Performed By: #### C BCDF #### [address] [address] Eosinophils (Bld) [#/Vol] 0.10 10*3/uL Normal 0.00 - 0.70 [facility] Comment on above: Performed By: #### C BCDF #### [address] [address] Eosinophils/100 WBC (Bld) 1.5 % Normal 0.0 - 6.0 [facility] Comment on above: Performed By: #### C BCDF #### [address] [address] Erythrocyte distribution width (RBC) [Ratio] 12.3 % Normal 11.5 - 14.5 [facility] Comment on above: Performed By: #### C BCDF #### [address] [address] Hematocrit (Bld) [Volume fraction] 43.6 % Normal 36.0 - 46.0 [facility] Comment on above: Performed By: #### C BCDF #### [address] [address] Hemoglobin (Bld) [Mass/Vol] 14.1 g/dL Normal 12.0 - 16.0 [facility] Comment on above: Performed By: #### C BCDF #### [address] [address] Lymphocytes (Bld) [#/Vol] 2.00 10*3/uL Normal 1.20 - 4.80 [facility] Comment on above: Performed By: #### C BCDF #### [address] [address] Lymphocytes/100 WBC (Bld) 30.2 % Normal 13.0 - 44.0 [facility] Comment on above: Performed By: #### C BCDF #### [address] [address] MCHC (RBC) [Mass/Vol] 32.3 g/dL Normal 32.0 - 36.0 [facility] Comment on above: Performed By: #### C BCDF #### [address] [address] MCV (RBC) [Entitic vol] 92 fL Normal 80 - 100 [facility] Comment on above: Performed By: #### C BCDF #### [address] [address] Monocytes (Bld) [#/Vol] 0.63 10*3/uL Normal 0.10 - 1.0 0 [facility] Comment on above: Performed By: #### C BCDF #### [address] [address] Monocytes/100 WBC (Bld) 9.5 % Normal 2.0 - 10.0 [facility] Comment on above: Performed By: #### C BCDF #### [address] [address] Neutrophils (Bld) [#/Vol] 3.79 10*3/uL Normal 1.20 - 7.70 [facility] Comment on above: Result Comment: Perc ent differential counts (%) should be interpreted in the context of the absolute cell counts (cells/L). Performed By: #### C BCDF #### [address] [address] Neutrophils/100 WBC (Bld) 57.3 % Normal 40.0 - 80.0 [facility] Comment on above: Performed By: #### C BCDF #### [address] [address] Platelets (Bld) [#/Vol] 399 10*3/uL Normal 150 - 450 [facility] Comment on above: Performed By: #### C BCDF #### [address] [address] RBC 4.72 x10E12/L Normal 4.00 - 5.20 [facility] Comment on above: Performed By: #### C BCDF #### [address] [address] WBC (Bld) [#/Vol] 6.6 10*3/uL Normal 4.4 - 11.3 [facility] Comment on above: Performed By: #### C BCDF #### [address] [address] COMPREHENSIVE PANELon 2021 Albumin [Mass/Vol] 4.1 g/dL Normal 3.4 - 5.0 [facility] Comment on above: Performed By: #### C MP #### [address] [address] ALP [Catalytic activity/Vol] 62 U/L Normal 33 - 110 [facility] Comment on above: Performed By: #### C MP #### [address] [address] ALT [Catalytic activity/Vol] 11 U/L Normal 7 - 45 [facility] Comment on above: Result Comment: Lucia ents treated with Sulfasalazine may generate falsely decreased results for ALT. Performed By: #### C MP #### [address] [address] Anion gap [Moles/Vol] 10 mmol/L Normal 10 - 20 [facility] Comment on above: Performed By: #### C MP #### [address] [address] AST [Catalytic activity/Vol] 14 U/L Normal 9 - 39 [facility] Comment on above: Performed By: #### C MP #### [address] [address] Bilirubin [Mass/Vol] 0.4 mg/dL Normal 0.0 - 1.2 [facility] [place] Comment on above: Performed By: #### C MP #### [address] [address] Calcium [Mass/Vol] 9.0 mg/dL Normal 8.6 - 10.3 [facility] Comment on above: Performed By: #### C MP #### [address] [address] Chloride [Moles/Vol] 103 mmol/L Normal 98 - 107 [facility] [place] Comment on above: Performed By: #### C MP #### [address] [address] Creatinine [Mass/Vol] 0.82 mg/dL Normal 0.50 - 1.05 [facility] Comment on above: Performed By: #### C MP #### [address] [address] eGFR FEMALE >90 Normal >90 [facility] Comment on above: Result Comment: CALC ULATIONS OF ESTIMATED GFR ARE PERFORMED USING THE 2020 CKD-EPI STUDY REFIT EQUATION WITHOUT THE RACE VARIABLE FOR THE IDMS-TRACEABLE CREATININE METHODS. https://jasn.asnjournals.org/content/early//ASN.136 8593152 Performed By: #### C MP #### [address] [address] Glucose [Mass/Vol] 75 mg/dL Normal 74 - 99 [facility] Comment on above: Performed By: #### C MP #### [address] [address] HCO3 (Bld) [Moles/Vol] 27 mmol/L Normal 21 - 32 [facility] Comment on above: Performed By: #### C MP #### [address] [address] Potassium [Moles/Vol] 4.2 mmol/L Normal 3.5 - 5.3 [facility] Comment on above: Performed By: #### C MP #### [address] [address] Protein [Mass/Vol] 7.3 g/dL Normal 6.4 - 8.2 [facility] Comment on above: Performed By: #### C MP #### [address] [address] Sodium [Moles/Vol] 136 mmol/L Normal 136 - 145 [facility] Comment on above: Performed By: #### C MP #### [address] [address] Urea nitrogen [Mass/Vol] 23 mg/dL Normal 6 - 23 [facility] Comment on above: Performed By: #### C MP #### [address] [address] Complete Blood Count + Diffe rentialon 12-25-2021 Basophils/100 WBC (Bld) 0.9 % 0.0 - 2.0 M [facility] Work Phone: Erythrocyte distribution width (RBC) [Ratio] 12.3 % See Below [facility] [employer] Work Phone: Comment on above: Reference Range: 11. 5 - 14.5 Hematocrit (Bld) [Volume fraction] 43.6 % See Below [facility] [employer] Work Phone: Comment on above: Reference Range: 36. 0 - 46.0 Hemoglobin (Bld) [Mass/Vol] 14.1 g/dL See Below [facility] Phone: Comment on above: Reference Range: 12. 0 - 16.0 Lymphocytes/100 WBC (Bld) 30.2 % See Below [facility] [employer] Phone: Comment on above: Reference Range: 13. 0 - 44.0 MCHC (RBC) [Mass/Vol] 32.3 g/dL See Below [facility] [employer] Work Phone: Comment on above: Reference Range: 32. 0 - 36.0 MCV (RBC) [Entitic vol] 92 fL 80 - [address] [facility] [employer] Phone: Monocytes/100 WBC (Bld) 9.5 % 2.0 - 10.[address] [facility] [employer] Phone: Neutrophils/100 WBC (Bld) 57.3 % See Below [facility] [employer] Work Phone: Comment on above: Reference Range: 40. 0 - 80.0 Platelets (Bld) [#/Vol] 399 10*3/uL 150 - 450 [facility] [employer] Phone: RBC (Bld) [#/Vol] 4.72 {x10E12/L} See Below [facility] [employer] Phone: Comment on above: Reference Range: 4.0 0 - 5.20 WBC (Bld) [#/Vol] 6.6 10*3/uL 4.4 - 11.3 [facility] [employer] Work Phone: Complete Blood Count + Differential 0.06 {x10E9/L} See Below [facility] [employer] Phone: Comment on above: Reference Range: 0.0 0 - 0.10 Complete Blood Count + Differential 0.10 {x10E9/L} See Below [facility] [employer] Work Phone: Comment on above: Reference Range: 0.0 0 - 0.70 Complete Blood Count + Differential 0.63 {x10E9/L} See Below [facility] [employer] Phone: Comment on above: Reference Range: 0.1 0 - 1.00 Complete Blood Count + Differential 2.00 {x10E9/L} See Below [facility] [employer] Phone: Comment on above: Reference Range: 1.2 0 - 4.80 Complete Blood Count + Differential 3.79 {x10E9/L} See Below [facility] [employer] Phone: Comment on above: Reference Range: 1.2 0 - 7.70 Percent differential counts (%) should be interpreted in the context of the absolute cell counts (cells/L). Complete Blood Count + Differential 1.5 % 0.0 - 6.0 [facility] [employer] Phone: Complete Blood Count + Differential 0.6 % 0.0 - 0.9 [facility] [employer] Phone: Comment on above: Immature Granulocyte Count (IG) includes promyelocytes, myelocytes and metamyelocytes but does not include bands. Percent differential counts (%) should be interpreted in the context of the absolute cell counts (cells/L). HCG, Beta Quantitativeon HCG.beta subunit Qn m[IU]/mL [facility] [employer] Work Phone: Comment on above: .Total HCG measureme nt is performed using the [employer] Access[employer]oassay which detects intact HCG and free beta HCG subunit. .This test is not indicated for use as a tumor marker.HCG testing is performed using a different test methodology at [facility] than other [facility]. Direct result comparisonshould only be made within the same method. REF VALUESNON FEMALE <5MALES <5 HCG,BETA-QUANTITATIVEon 12-10 HCG,BETA-QUANTITATIVE <2 Normal [facility] Comment on above: Result Comment: . Total HCG measurement is performed using the [employer] Access Immunoassay which detects intact HCG and free beta HCG subunit. . This test is not indicated for use as a tumor marker. HCG testing is performed using a different test methodology at [facility] than other [facility]. Direct result comparison should only be made within the same method. REF VALUES NON FEMALE <5 MALES <5 Performed By: #### H CGQU #### [id number] [place] [address] Laboratory - Chemistry and C hemistry - challengeon 12-25-2021 Albumin BCP dye [Mass/Vol] 4.1 g/dL 3.4 - 5.0 [facility] [employer] Work Phone: ALP [Catalytic activity/Vol] 62 U/L 33 - 110 [facility] Work Phone: ALT With P-5'-P [Catalytic activity/Vol] 11 U/L 7 - 45 [facility] [facility] [employer] Work Phone: Comment on above: Patients treated wit h Sulfasalazine may generate falsely decreased results for ALT. Anion gap [Moles/Vol] 10 mmol/L 10 - 20 [facility] [employer] Work Phone: AST With P-5'-P [Catalytic activity/Vol] 14 U/L 9 - 39 [facility] [employer] Work Phone: Bilirubin [Mass/Vol] 0.4 mg/dL 0.0 - 1.2 [facility] [employer] Work Phone: Calcium [Mass/Vol] 9.0 mg/dL 8.6 - 10.3 [facility] [employer] Work Phone: Chloride [Moles/Vol] 103 mmol/L 98 - 107 [facility] Work Phone: CO2 [Moles/Vol] 27 mmol/L 21 - 32 [facility] [employer] Work Phone: Creatinine [Mass/Vol] 0.82 mg/dL See Below [facility] Work Phone: Comment on above: Reference Range: 0.5 0 - 1.05 Glucose [Mass/Vol] 75 mg/dL 74 - 99 [facility] [employer] Work Phone: Potassium [Moles/Vol] 4.2 mmol/L 3.5 - 5.3 [facility] [employer] Phone: Protein [Mass/Vol] 7.3 g/dL 6.4 - 8.2 [facility] [employer] Work Phone: Sodium [Moles/Vol] 136 mmol/L 136 - 145 [facility] [employer] Phone: TSH Qn 1.70 m[IU]/L See Below [facility] [employer] Phone: Comment on above: Reference Range: 0.4 4 - 3.98 TSH testing is performed using different testing methodology at [facility] than at [facility]. Direct result comparisons should only be made within the same method. Urea nitrogen [Mass/Vol] 23 mg/dL 6 - 23 [facility] [employer] Phone: No Panel Informationon 12-25 >90 >90 [facility] [employer] Phone: Comment on above: CALCULATIONS OF MARITZA MATED GFR ARE PERFORMED USING THE 2020 CKD-EPI STUDY REFIT EQUATION WITHOUT THE RACE VARIABLE FOR THE IDMS-TRACEABLE CREATININE METHODS.https://jasn.asnjournals.org/content/early /ASN.5047226980 PROLACTINon 12-25-2021 PROLACTIN 9.5 ug/L Normal 3.0 - 20.0 [facility] Comment on above: Performed By: #### P ROL #### [facility] [address] [address] Prolactin, Serumon 2 Prolactin [Mass/Vol] 9.5 ug/L 3.0 - 20.0 [facility] land Work Phone: TSH WITH REFLEX TO FREE T4 I F ABNORMALon 12-25-2021 TSH Qn 1.70 m[IU]/L Normal 0.44 - 3.98 [facility] Comment on above: Result Comment: TSH testing is performed using different testing methodology at [facility] than at other [facility]. Direct result comparisons should only be made within the same method. Performed By: #### [facility] #### [facility] [address] [place] [address] Office Visit (Family Medicin e)on 12-24-2021 Follow-up visit Diagnoses/Problems Irregular periods (626.4) (N92.6) Chronic pain of both feet (729.5,338.29) (M79.671,M79.672,G89.29 ) Orders Chronic pain of both feet Podiatry Referral Evaluation and Treatment Evaluate AND Treat Status: Hold For - Scheduling Requested for: [id number] Irregular periods Complete Blood Count + Differential; Status:Active; Requested for:[id number]; Comprehensive Metabolic Panel; Status:Active; Requested for:[id number]; HCG, Beta Quantitative; Status:Active; Requested for:[id number]; Prolactin Series; Status:Active; Requested for:[id number]; TSH WITH REFLEX TO FREE T4 IF ABNORMAL; Status:Active; Requested for:[id number]; Patient Discussion/Summary Labs today, will call results. Podiatry for further evaluation of pain in feet. Chief Complaint Chief Complaint: JUAN JOSE BOWERS is here with a chief complaint of C/O B/L FOOT PAIN; RT WORSE THAN LT; STATES HAS HAS A LONG TIME BUT SEEMS TO BE GETTING WORSE. C/O IRREGULAR MENSTRAL CYCLES; NO PERIOD X 3MO; STATES HAS HAD NEGATIVE TEST; HAD VASECTOMY. History of Present Illness Pt presents with a few concerns today. Periods, have always been slightly irregular ,heavy or light, longer or shorter, but states hasn't had one since August. Has done a home hcg test and was negative , had vasectomy. She has a cook vacuum kettle appt in a few weeks. Pap last year. Feels tired all the time. At times is sad bu not consistently so. Her sister had liver transplant from what she thinks was fatty liver. Her feet have been hurting for a year . Pain is intermittent, worse with standing, walking. Sometimes hurt at rest . wears boots. Pain is in heel, mid foot, arch or forefoot, it varies. Denies n/t. Tried various shoe inserts and they seemed to make pain worse. Review of Systems Constitutional: as noted in HPI. Cardiovascular: chest pain. Genitourinary: as noted in HPI. Musculoskeletal: as noted in HPI. Psychiatric: as noted in HPI. Active Problems ADD (attention deficit disorder) (314.00) (F98.8) Surgical History History of Carpal tunnel surgery History of Nasal valve repair Family History No pertinent family history Social History Caffeine use (V49.89) (Z78.9) Never a smoker Patient has active durable power of assistant district attorney (DPOA) designee for healthcare Patient has living will (V49.89) (Z78.9) Rarely consumes alcohol (V49.89) (Z78.9) Allergies No Known Drug Allergies Recorded By: Steph Dave; 06/05/2021 10:44:07 AM Current Meds Medication NameInstructionReason Adderall 10 MG Oral Tablet Adderall XR 20 MG Oral Capsule Extended Release 24 Hour Famciclovir 500 MG Oral Tablet Vitals Vital Signs Recorded: [id number] 11:43AM Heart Rate80 Znnrchcq432, LUE, Sitting Nlgtudxmx61, LUE, Sitting Height5 ft 6 in Yerqmk507 lb 3 oz BMI Djghbcqpvz21.08 kg/m2 BSA Calculated1.91 Tobacco Useb) No Falls Screening (Age 18+)a) No falls within the last year Physical Exam Constitutional: Alert and in no acute distress. Well developed, well nourished. Head and Face: Head and face: Normal. Ears, Nose, Mouth, and Throat: no exophthalmos. Neck: No neck mass was observed. Supple. Pulmonary: No respiratory distress. Musculoskeletal: Gait and station: Normal. 'Scores and Scales' Signatures Electronically signed by : Rosa Isela Lanza MD; Dec 24 2021 12:40PM EST (Author) [facility] [place] [employer] Tobacco Screening.on 022 Fall risk assessment a) No falls within the last year [facility] Phone: Tobacco use status HS b) No M [facility] Work Phone: Post Op (Orthopaedic Surgery )on 12-03-2021 Post Op (Orthopaedic Surgery) Diagnoses/Problems Assessed Carpal tunnel syndrome (354.0) (G56.00) Patient Discussion/Summary By signing my name below, I, Linette Evans, attest that this documentation has been prepared under the direction and in the presence of Dr. Manoj Ojeda. All medical record entries made by the Scribe were at my direction and personally dictated by me. I have reviewed the chart and agree that the record accurately reflects my personal performance of the history, physical exam, discussion and plan. Provider Impressions Assessment- bilateral carpal tunnel syndrome, status post right carpal tunnel release, status post left carpal tunnel release Plan-patient has done very well following her bilateral open carpal tunnel releases she still has some pain and tenderness in the wrist she has been using quite a bit which I think is likely contributing to some of the discomfort but overall she is improving. Her numbness and tingling is completely resolved I did encourage her to work on scar massage and to be careful with her activities and that with time this should completely resolve and the pain should improve she should build to get back to full activity. At this point she can follow-up with me on an as-needed basis This note has been created with voice recognition software. Please be aware that there may be grammatical or contextual errors due to the use of the software. Chief Complaint 3 WK PO L CTR 11/13/21 PAIN: 0 IMPROVED History of Present Illness Patient is a pleasant 36-year-old female presenting today for 3 week post operative evaluation as she is status post open carpal tunnel release of the left wrist performed on 11/13/2021. Patient reports to be doing well at this time post operatively and has appreciated some slow improvement over time. She reports to be without any numbness or tingling sensations post operatively, but does report to have some lasting discomfort and a pinching sensation of the wrist. She reports soreness with activity and overuse, otherwise rates her pain at rest to be a 0 out of 10. She has continued the antibiotic. She has some scar tissue that she is doing scar massages and is hopeful for slow improvement with time. Review of Systems Constitutional: no fever, no chills, not feeling tired, no recent weight gain and no recent weight loss. ENT: no nosebleeds. Cardiovascular: no chest pain. Respiratory: no shortness of breath and no cough. Gastrointestinal: no abdominal pain, no nausea, no vomiting and no diarrhea. Musculoskeletal: no arthralgias and as noted in HPI. Integumentary: no rashes and no skin wound. Neurological: no headache. Psychiatric: no depression and no sleep disturbances. Endocrine: no muscle weakness and no muscle cramps. Hematologic/Lymphatic: no swollen glands and no tendency for easy bruising. All other systems have been reviewed and are negative for complaint. Active Problems Problems ADD (attention deficit disorder) (314.00) (F98.8) Carpal tunnel syndrome (354.0) (G56.00) Numbness and tingling of left hand (782.0) (R20.0,R20.2) Numbness of right hand (782.0) (R20.0) Surgical History Problems History of Nasal valve repair Family History Mother No pertinent family history Social History Problems Caffeine use (V49.89) (Z78.9) Never a smoker Patient has active durable power of assistant district attorney (DPOA) designee for healthcare Patient has living will (V49.89) (Z78.9) Rarely consumes alcohol (V49.89) (Z78.9) Allergies Medication No Known Drug Allergies Recorded By: Steph Dave; 06/05/2021 10:44:07 AM Current Meds Medication NameInstruction Adderall 10 MG Oral Tablet Adderall XR 20 MG Oral Capsule Extended Release 24 Hour Doxycycline Hyclate 100 MG Oral TabletTAKE 1 TABLET EVERY 12 HOURS DAILY. Famciclovir 500 MG Oral Tablet HYDROcodone-Acetaminoph en 5-325 MG Oral TabletTAKE 1 TABLET EVERY 4 TO 6 HOURS NEEDED. HYDROcodone-Acetaminoph en 5-325 MG Oral Tablet Vitals Vital Signs Recorded: 03Dec2021 08:44AM Mjrcyhbjlpl49.1 F Tobacco Useb) No Falls Screening (Age 18+)a) No falls within the last year Physical Exam Alert and Oriented x3 Patient resting comfortably in the exam room. Normocephalic atraumatic extraocular movements intact mucous membranes moist warm well perfused extremities nonlabored breathing appropriate mood and affect no evidence of lymphedema. Bilateral hands Left hand healing surgical incision, no erythema, warmth or drainage. Right hand resolution of previous surgical incision with no skin openings, no active drainage, or signs of infection. Skin is intact no erythema ecchymosis lesions or abrasions full range of motion of the wrist and fingers without limitations intact sensaion two-point discrimination in the median nerve distribution palpable pulses brisk cap refill Signatures Electronically signed by : Manoj Ojeda, ; Dec 03 2021 9:06AM EST (Author) [facility] [place] [employer] Tobacco Screening.on 022 Fall risk assessment a) No falls within the last year [facility] Work Phone: [phone] Tobacco use status [facility] b) No M [facility] Work Phone: [phone] Post Op (Orthopaedic Surgery )on 11-26-2021 Post Op (Orthopaedic Surgery) Diagnoses/Problems Assessed Numbness and tingling of left hand (782.0) (R20.0,R20.2) Orders Numbness and tingling of left hand Start: Doxycycline Hyclate 100 MG Oral Tablet; TAKE 1 TABLET EVERY 12 HOURS DAILY Start: HYDROcodone-Acetaminoph en 5-325 MG Oral Tablet; TAKE 1 TABLET EVERY 4 TO 6 HOURS NEEDED Patient Discussion/Summary By signing my name below, I, Linette Evans, attest that this documentation has been prepared under the direction and in the presence of Dr. Manoj Ojeda. All medical record entries made by the Scribe were at my direction and personally dictated by me. I have reviewed the chart and agree that the record accurately reflects my personal performance of the history, physical exam, discussion and plan. Provider Impressions Assessment- bilateral carpal tunnel syndrome, status post right carpal tunnel release, status post left carpal tunnel release Plan-patient is moderately tender around her incisions. She has been extremely active and likely overdoing things somewhat following her surgery. I did encourage her to decrease her activity level somewhat she is okay for continued range of motion but she should stress her incisions thus I will start her on a short course of antibiotics for some surrounding erythema on the left side. Plan to see her back in 1 month to evaluate how she is doing This note has been created with voice recognition software. Please be aware that there may be grammatical or contextual errors due to the use of the software. History of Present Illness Patient is a pleasant 36-year-old female presenting for post operative evaluation of the left wrist. She is status post left carpal tunnel release performed on 11/13/2021. Patient is doing relatively well at this time post operatively. However, she reports she had drill this past weekend and notes she has become increasingly symptomatic following. She reports soreness and tenderness of the wrist, noting the tenderness to be quite severe today. She denies any numbness and/or tingling sensations at this time. She has redness about the surgical wound, as well as tenderness with palpation. Review of Systems Constitutional: no fever, no chills, not feeling tired, no recent weight gain and no recent weight loss. ENT: no nosebleeds. Cardiovascular: no chest pain. Respiratory: no shortness of breath and no cough. Gastrointestinal: no abdominal pain, no nausea, no vomiting and no diarrhea. Musculoskeletal: no arthralgias and as noted in HPI. Integumentary: no rashes and no skin wound. Neurological: no headache. Psychiatric: no depression and no sleep disturbances. Endocrine: no muscle weakness and no muscle cramps. Hematologic/Lymphatic: swollen glands, but no tendency for easy bruising. Active Problems Problems ADD (attention deficit disorder) (314.00) (F98.8) Carpal tunnel syndrome (354.0) (G56.00) Numbness and tingling of left hand (782.0) (R20.0,R20.2) Numbness of right hand (782.0) (R20.0) Surgical History Problems History of Nasal valve repair Family History Mother No pertinent family history Social History Problems Caffeine use (V49.89) (Z78.9) Never a smoker Patient has active durable power of assistant district attorney (DPOA) designee for healthcare Patient has living will (V49.89) (Z78.9) Rarely consumes alcohol (V49.89) (Z78.9) Allergies Medication No Known Drug Allergies Recorded By: Steph Dave; 06/05/2021 10:44:07 AM Current Meds Medication NameInstruction Adderall 10 MG Oral Tablet Adderall XR 20 MG Oral Capsule Extended Release 24 Hour Famciclovir 500 MG Oral Tablet HYDROcodone-Acetaminoph en 5-325 MG Oral Tablet Vitals Vital Signs Recorded: 26Nov2021 08:31AM Height5 ft 6 in Sizlru492 lb BMI Lmpzvddpfs84.41 kg/m2 BSA Calculated1.89 Tobacco Useb) No Falls Screening (Age 18+)a) No falls within the last year Physical Exam Alert and Oriented x3 Patient resting comfortably in the exam room. Normocephalic atraumatic extraocular movements intact mucous membranes moist warm well perfused extremities nonlabored breathing appropriate mood and affect no evidence of lymphedema. Bilateral hands Left hand healing surgical incision, no erythema, warmth or drainage. Right hand resolution of previous surgical incision with no skin openings, no active drainage, or signs of infection. Skin is intact no erythema ecchymosis lesions or abrasions full range of motion of the wrist and fingers without limitations there is positive Tinel bilaterally positive Phalen there is gross intact motor and sensory in all distributions but slightly diminished two-point discrimination in the median nerve distribution palpable pulses brisk cap refill Signatures Electronically signed by : Manoj Ojeda DO; Nov 26 2021 7:14PM EST (Author) [facility] [place] [employer] Tobacco Screening.on 022 Fall risk assessment a) No falls within the last year [facility] [address] Work Phone: Tobacco use status [facility] b) No M [facility] Work Phone: Order Reconciliationon 11-13 Order Reconciliation Page 1 Discharge Reconciliation Document Reconciliation Type: Discharge requested on behalf of Manoj Ojeda (Physician) done by Manoj Ojeda () Discharge - Reconciliation: 13-Nov-2021 13:03 by: Manoj Ojeda () Home Medications EnteredHOME MEDICATIONS AT DISCHARGE DateReconciliation Comment/ Additional Information Adderall 20 mg oral tablet 1 tab(s) orally once a day 25-Oct-2021 11:11 Adderall 20 mg oral tablet 1 tab(s) orally once a day 25-Oct-2021 11:11 Adderall 20 mg oral tablet is continued as Adderall 20 mg oral tablet Adderall XR 10 mg oral capsule, extended release 1 cap(s) orally once a day (in the morning) 25-Oct-2021 11:11 Adderall XR 10 mg oral capsule, extended release 1 cap(s) orally once a day (in the morning) 25-Oct-2021 11:11 Adderall XR 10 mg oral capsule, extended release is continued as Adderall XR 10 mg oral capsule, extended release hydrocodone-acetaminoph en 5 mg-325 mg oral tablet 1 tab(s) orally every 4 hours, As Needed 13-Nov-2021 13:02 hydrocodone-acetaminoph en 5 mg-325 mg oral tablet 1 tab(s) orally every 4 hours, As Needed 13-Nov-2021 13:02 hydrocodone-acetaminoph en 5 mg-325 mg oral tablet is continued as hydrocodone-acetaminoph en 5 mg-325 mg oral tablet Current OrdersDateHOME MEDICATIONS AT DISCHARGE DateReconciliation Comment/ Additional Information HYDROmorphone Injectable (DILAUDID)DOSE = 0.5 mg IntraVenous Push Every 5 Minutes, PRN Pain - Mod (4-6) (PACU)Clinician Notes: Geri-operative order ONLYMax total of 4 mg regardless of dose. 13-Nov-2021 08:28 HYDROmorphone Injectable is not required Lactated Ringers Infusion IV Bag Volume = 1,000 mL Run at: 100 mL/hr IntraVenous Clinician Notes: Geir-operative order ONLY 13-Nov-2021 08:28 Lactated Ringers Infusion is not required Naloxone Injectable (NARCAN)DOSE = 0.2 mg IntraVenous Push Once, PRN If patient RR below 10, obtunded or unarousableClinician Notes: DO NOT ADMINISTER UNTIL PHYSiCIAN HAS BEEN NOTIFIED AND ASSESSED PATIENT 13-Nov-2021 08:28 Naloxone Injectable is not required oxyCODONE Immediate Release Tablet (OXYIR, ROXICODONE)DOSE = 5 mg Oral Every 4 Hours, PRN Pain - Mild (1-3) (PACU) when able to take OralClinician Notes: Geri-operative order ONLY 13-Nov-2021 08:28 oxyCODONE Immediate Release is not required Home Medications Added During Discharge Reconciliation Activity as Tolerated 13-Nov-2021, Routine, Assistance Level: None, Restrictions: None, Limit your activities and rest today. Additional Patient Instructions Apply Ice pack to surgical area. Additional Patient Instructions Do not consume alcoholic beverages for 24 hours. Additional Patient Instructions Do not engage in sports, heavy work or lifting. Additional Patient Instructions Do not make important decisions or sign any important documents for the next 24 hours. Additional Patient Instructions Keep Surgical incision dry and clean. Call Physician For: excessive bleeding (slow general oozing that completely soaks dressing or fresh bright red bleeding) or bleeding that will not stop. Apply pressure to the area and elevate. Call Physician For: if the arm or leg operated on has a change in color, numbness or tingling coldness to the touch or excessive pain. Call Physician For: inability to urinate every 8-12 hours and your bladder becomes too full or painful. Call Physician For: persistant nausea and/or vomiting Over 24 hours Call Physician For: signs and sypmtoms of infection Increased redness or swelling at incision site, increased pain/tenderness at surgical site, increased temperature greater than 100 degress, increasing and/or progressive drainage from surgical site, and/or unusual odor from surgical site. Diet Regular Discharge Discharge Diagnosis< G56.00 Carpal tunnel syndrome Discharge Provider, Manoj Oejda Discharge Disposition : .Home Condition at Discharge: Satisfactory Discharge Communication Instructions for Nursing Only: Remove IV prior to discharge from hospital. Do not remove any midline, if present, without an order from the provider. Discharge Instructions - PHR After your discharge from the hospital, two Summary of Care Documents will be available online in your Personal Health Record (PHR). 1.Consolidated-Clinical Document Architecture (C-CDA) Patient Discharge Summary This document is a summary of your hospital stay to be kept for your reference.2.C-CDA Visit Summary This document is a summary of your hospital stay to be shared with your follow-up providers (doctor, mink rancher, physical therapist, etc.). Keep Extremity Elevated Hand, May shower Post Procedure Discharge Criteria Criteria: Easily arousable / responding appropriately; Significant complications are absent; SpO2 = or > 92%, or if SpO2 < 92%, maintains within 2% of baseline; Vital signs +/- 20% of preprocedure status; Ambulates without dizziness / age appropriate activity (more content not included)... [facility] Patient Profile - Preop v3on 11-11-2021 Patient Profile - Preop v3 Patient Profile - Preop: Initial Info: Patient DemographicsName: JUAN JOSE BOWERS Date: 1985 Address: [facility] [address], [id number] Primary Phone [phone] Call Attemptedattempt 1 Instructions Givenappropriate clothing, bring responsible adult as the passenger coach driver (procedure may be cancelled if no passenger coach driver), center location, insurance information Prep Instructions Reviewedyes Instructed to Have No Fluids Aftermidnight How to be Addressedlindsay Spoken Language PreferredEnglish Source of Informationpatient Stated Reason for Admissionleft carpal tunnel Primary Contact Name and Numberself [phone] Medications Brought to Hospitalno General Health: Weight in kg78.1 kilogram(s) Weight in ioy925.1 pound(s) Weight Methodactual (measured) Scale Typestanding Height in feet5 feet Height in inches5.91 inch(es) Height in cm167.4 centimeter(s) Height Methodstated BMI (kg/m2)27.87 square meter Patient or Family Member Reaction to Anesthesiano previous reaction; no previous family member reaction Blood Avoidance/Restrictionsn one Previous Transfusion Reactionnot applicable Health Mgmt: Symptoms/Conditions Managed at Homebehavioral health Are You no Are You Currently Breastfeedingno Behavioral Health Symptoms/ConditionsADHD /ADD Behavioral Management Strategiesmedication therapy Barriers to Managing Healthnone Relationship/Environ: Lives Withspouse; dependent child(santa) Living Arrangementshouse Resource/Environmental Concernsnone Anticipated Transition Tolindsay Services Anticipated at Transitionnone Tobacco Use: Tobacco Useno Pre-op Checklist: Arrival [id number] Arrival Time11:08 Procedure Typeleft CTR NPOyes Last Food [id number] 22:00 Last Clear Fluid [id number] 22:07 ID Band On Patientpatient ID (name) Consent Signedyes H&P Completeyes, verified with consent and patient Anesthesia Assessment Completedyes EKG Performednot ordered Chest X-Ray Performednot ordered Preop Antibioticsstarted in preop Type and Screen Resultedn/a HCG Urine TestN/A Chlorhexadine Bath Givennot applicable Nasal Antiseptic Appliednot applicable Soap and Water Bath the Night Before Surgerynot applicable Hair Washed with Shampoonot applicable Bowel Prepno Surgical Site Infection Preventionyes Pain Scales and Managementyes Additional Information: Information Review: Allergies, Home Meds and Significant Events have been Reviewed and Verified with Patient/Familyyes Allergy, Intolerance, Adverse Event: Allergies: No Known Allergies: Active Electronic Signatures: Dominique Saenz (RN) (Signed 13-Nov-2021 11:19) Authored: Initial Info, General Health, Pre-op Checklist, Additional Information Tressa De Oliveira (RN) (Signed 11-Nov-2021 10:23) Authored: Initial Info, General Health, Health Mgmt, Relationship/Environ, Tobacco Use, Pre-op Checklist, Additional Information Last Updated: 13-Nov-2021 11:19 by Dominique Saenz (RN) [facility] Post Op (Orthopaedic Surgery )on 11-08-2021 Post Op (Orthopaedic Surgery) Diagnoses/Problems Assessed Carpal tunnel syndrome (354.0) (G56.00) Patient Discussion/Summary By signing my name below, I, Linette Evans, attest that this documentation has been prepared under the direction and in the presence of Dr. Manoj Ojeda. All medical record entries made by the Scribe were at my direction and personally dictated by me. I have reviewed the chart and agree that the record accurately reflects my personal performance of the history, physical exam, discussion and plan. Provider Impressions Assessment- bilateral carpal tunnel syndrome, status post right carpal tunnel release Plan-patient is healing very nicely from right-sided carpal tunnel release she still does have some ecchymosis but no signs of infection. She has no numbness and tingling she has some mild discomfort especially with certain activities she is interested in pursuing the contralateral side we will plan for this on Thursday of next week This note has been created with voice recognition software. Please be aware that there may be grammatical or contextual errors due to the use of the software. Chief Complaint P/O 1ST 10/28/21 OCTR R HAND IMPROVED History of Present Illness Patient is a pleasant 36-year-old female presenting today for post operative evaluation as she is status post open carpal tunnel release of the right wrist performed on 10/28/2021. Surgical stitches were removed in office today and the wound is healing well without signs of infection thus far. Patient reports to be doing relatively well at this time post operatively and states she feels her overall condition has improved. She denies any numbness and tingling sensations following surgery. She has tenderness about the hand, otherwise without significant pain. She does mention her other hand has become increasingly symptomatic with numbness due to compensating for her post-op condition. She states she feels prepared to pursue surgical intervention next week with regards to open carpal tunnel release of the left wrist. Review of Systems Constitutional: no fever, no chills, not feeling tired, no recent weight gain and no recent weight loss. ENT: no nosebleeds. Cardiovascular: no chest pain. Respiratory: no shortness of breath and no cough. Gastrointestinal: no abdominal pain, no nausea, no vomiting and no diarrhea. Musculoskeletal: no arthralgias and as noted in HPI. Integumentary: no rashes and no skin wound. Neurological: no headache. Psychiatric: no depression and no sleep disturbances. Endocrine: no muscle weakness and no muscle cramps. Hematologic/Lymphatic: swollen glands, but no tendency for easy bruising. Active Problems Problems ADD (attention deficit disorder) (314.00) (F98.8) Carpal tunnel syndrome (354.0) (G56.00) Numbness and tingling of left hand (782.0) (R20.0,R20.2) Numbness of right hand (782.0) (R20.0) Surgical History Problems History of Nasal valve repair Family History Mother No pertinent family history Social History Problems Caffeine use (V49.89) (Z78.9) Never a smoker Patient has active durable power of assistant district attorney (DPOA) designee for healthcare Patient has living will (V49.89) (Z78.9) Rarely consumes alcohol (V49.89) (Z78.9) Allergies Medication No Known Drug Allergies Recorded By: Steph Dave; 06/05/2021 10:44:07 AM Current Meds Medication NameInstruction Adderall 10 MG Oral Tablet Adderall XR 20 MG Oral Capsule Extended Release 24 Hour Famciclovir 500 MG Oral Tablet HYDROcodone-Acetaminoph en 5-325 MG Oral Tablet Vitals Vital Signs Recorded: [id number] 11:32AM Jrkrfowylgf55.5 F Height5 ft 6 in Zxupxj444 lb BMI Cihhjkmixs67.41 kg/m2 BSA Calculated1.89 Tobacco Useb) No Falls Screening (Age 18+)a) No falls within the last year Physical Exam Alert and Oriented x3 Patient resting comfortably in the exam room. Normocephalic atraumatic extraocular movements intact mucous membranes moist warm well perfused extremities nonlabored breathing appropriate mood and affect no evidence of lymphedema. Bilateral hands Right hand healing surgical incision, no erythema, warmth or drainage. Skin is intact no erythema ecchymosis lesions or abrasions full range of motion of the wrist and fingers without limitations there is positive Tinel bilaterally positive Phalen there is gross intact motor and sensory in all distributions but slightly diminished two-point discrimination in the median nerve distribution palpable pulses brisk cap refill Signatures Electronically signed by : Manoj Ojeda DO; Nov 09 2021 8:08AM EST (Author) [facility] [place] [employer] Tobacco Screening.on 022 Fall risk assessment a) No falls within the last year [facility] 300 Work Phone: Tobacco use status CPHS b) No M [facility] 300 Work Phone: Order Reconciliationon 10-28 Order Reconciliation Page 1 Discharge Reconciliation Document Reconciliation Type: Discharge requested on behalf of Manoj Ojeda (Physician) done by Manoj Ojeda () Discharge - Reconciliation: 28-Oct-2021 11:42 by: Manoj Ojeda () Home Medications EnteredHOME MEDICATIONS AT DISCHARGE DateReconciliation Comment/ Additional Information Adderall 20 mg oral tablet 1 tab(s) orally once a day 25-Oct-2021 11:11 Adderall 20 mg oral tablet 1 tab(s) orally once a day 25-Oct-2021 11:11 Adderall 20 mg oral tablet is continued as Adderall 20 mg oral tablet Adderall XR 10 mg oral capsule, extended release 1 cap(s) orally once a day (in the morning) 25-Oct-2021 11:11 Adderall XR 10 mg oral capsule, extended release 1 cap(s) orally once a day (in the morning) 25-Oct-2021 11:11 Adderall XR 10 mg oral capsule, extended release is continued as Adderall XR 10 mg oral capsule, extended release hydrocodone-acetaminoph en 5 mg-325 mg oral tablet 1 tab(s) orally every 4 hours, As Needed 28-Oct-2021 11:39 hydrocodone-acetaminoph en 5 mg-325 mg oral tablet 1 tab(s) orally every 4 hours, As Needed 28-Oct-2021 11:39 hydrocodone-acetaminoph en 5 mg-325 mg oral tablet is continued as hydrocodone-acetaminoph en 5 mg-325 mg oral tablet Current OrdersDateHOME MEDICATIONS AT DISCHARGE DateReconciliation Comment/ Additional Information HYDROmorphone Injectable (DILAUDID)DOSE = 0.4 mg IntraVenous Push Every 5 Minutes, PRN Pain - Severe (7-10) (PACU)Clinician Notes: Geri-operative order ONLYMax total of 4 mg regardless of dose. 28-Oct-2021 08:47 HYDROmorphone Injectable is not required Lactated Ringers Infusion IV Bag Volume = 1,000 mL Run at: 100 mL/hr IntraVenous Clinician Notes: Geri-operative order ONLY 28-Oct-2021 08:47 Lactated Ringers Infusion is not required Metoclopramide Injectable (REGLAN)DOSE = 10 mg IntraVenous Push Once, PRN persistent PONV if first line ineffectiveClinician Notes: Geri-operative order ONLY 28-Oct-2021 08:47 Metoclopramide Injectable is not required Midazolam Injectable (VERSED)DOSE = 2 mg IntraVenous Push Once, PRN AnxietyClinician Notes: Geri-operative order ONLY 28-Oct-2021 08:47 Midazolam Injectable is not required Naloxone Injectable (NARCAN)DOSE = 0.2 mg IntraVenous Push Once, PRN If patient RR below 10, obtunded or unarousableClinician Notes: DO NOT ADMINISTER UNTIL PHYSiCIAN HAS BEEN NOTIFIED AND ASSESSED PATIENT 28-Oct-2021 08:47 Naloxone Injectable is not required oxyCODONE Immediate Release Tablet (OXYIR, ROXICODONE)DOSE = 5 mg Oral Once, PRN Pain - Mild (1-3) (PACU) when able to take OralClinician Notes: Geri-operative order ONLY 28-Oct-2021 08:47 oxyCODONE Immediate Release is not required Promethazine IV Piggy Back in Sodium Chloride 0.9% 50 mL (PHENERGAN)DOSE = 6.25 mg Once, PRN PONV, first lineRecommended Infusion Time: 15 minute(s)Clinician Notes: Geri-operative order ONLY 28-Oct-2021 08:47 Promethazine IV Piggy Back is not required Home Medications Added During Discharge Reconciliation Activity as Tolerated 28-Oct-2021, Routine, Assistance Level: None, Restrictions: None, Limit your activities and rest today. Additional Patient Instructions Apply Ice pack to surgical area. Additional Patient Instructions Do not consume alcoholic beverages for 24 hours. Additional Patient Instructions Do not engage in sports, heavy work or lifting. Additional Patient Instructions Do not make important decisions or sign any important documents for the next 24 hours. Additional Patient Instructions Keep Surgical incision dry and clean. Call Physician For: excessive bleeding (slow general oozing that completely soaks dressing or fresh bright red bleeding) or bleeding that will not stop. Apply pressure to the area and elevate. Call Physician For: if the arm or leg operated on has a change in color, numbness or tingling coldness to the touch or excessive pain. Call Physician For: inability to urinate every 8-12 hours and your bladder becomes too full or painful. Call Physician For: persistant nausea and/or vomiting Over 24 hours Call Physician For: signs and sypmtoms of infection Increased redness or swelling at incision site, increased pain/tenderness at surgical site, increased temperature greater than 100 degress, increasing and/or progressive drainage from surgical site, and/or unusual odor from surgical site. Diet Regular Discharge Discharge Diagnosis< G56.00 Carpal tunnel syndrome Discharge Provider, Manoj Ojeda Discharge Disposition : .Home Condition at Discharge: Satisfactory Discharge Communication Instructions for Nursing Only: Remove IV prior to discharge from hospital. Do not remove any midline, if present, without an order from the provider. Discharge Instructions - PHR After your discharge from the hospital, two Summary of Care Documents will be available online in your Personal Health Record (PHR (more content not included)... [facility] Patient Profile - Preop v3on 10-25-2021 Patient Profile - Preop v3 Patient Profile - Preop: Initial Info: Patient DemographicsName: JUAN JOSE BOWERS Date: 1985 Address[address] [address] [place], [place] [address], [id number] Primary Phone [phone] Call Attemptedattempt 1 Instructions Givenappropriate clothing, bring responsible adult as the passenger coach driver (procedure may be cancelled if no passenger coach driver), center location, insurance information Prep Instructions Reviewedyes Instructed to Have No Fluids Aftermidnight How to be Addressedlindsay Spoken Language PreferredEnglish Source of Informationpatient Stated Reason for Admissionsurgery Primary Contact Name and Numberself Medications Brought to Hospitalno General Health: Weight in kg78.2 kilogram(s) Weight in vhz525.4 pound(s) Weight Methodstated Scale Typestanding Height in feet5 feet Height in inches5.94 inch(es) Height in cm167.4 centimeter(s) Height Methodstated BMI (kg/m2)27.905 square meter Patient or Family Member Reaction to Anesthesiano previous reaction; no previous family member reaction Blood Avoidance/Restrictionsn one Previous Transfusion Reactionnot applicable Health Mgmt: Symptoms/Conditions Managed at Homebehavioral health Are You no Are You Currently Breastfeedingno Behavioral Health Symptoms/ConditionsADHD /ADD Behavioral Management Strategiesmedication therapy Barriers to Managing Healthnone Relationship/Environ: Lives Withspouse; dependent child(santa) Living Arrangementshouse Resource/Environmental Concernsnone Anticipated Transition Tolindsay Services Anticipated at Transitionnone Tobacco Use: Tobacco Useno Pre-op Checklist: Arrival [id number] Arrival Time09:30 Procedure Typeright CTR NPOyes Last Food [id number] 21:00 Last Clear Fluid [id number] 22:07 ID Band On Patientpatient ID (name) Consent Signedyes H&P Completeyes, verified with consent and patient Anesthesia Assessment Completedyes EKG Performednot ordered Chest X-Ray Performednot ordered Preop Antibioticsstarted in preop Type and Screen Resultedn/a HCG Urine TestN/A Chlorhexadine Bath Givennot applicable Nasal Antiseptic Appliednot applicable Soap and Water Bath the Night Before Surgerynot applicable Hair Washed with Shampoonot applicable Bowel Prepno Surgical Site Infection Preventionyes Pain Scales and Managementyes Additional Information: Information Review: Allergies, Home Meds and Significant Events have been Reviewed and Verified with Patient/Familyyes Allergy, Intolerance, Adverse Event: Allergies: No Known Allergies: Active Problem List: Medical History: ADHD: Catalog Name: Attention-deficit hyperactivity disorder, unspecified type Surg History: History of breast augmentation: Catalog Name: Breast implant status History of nasal septoplasty: Catalog Name: Other specified postprocedural states Electronic Signatures: Bhavya Gunter (RN) (Signed 28-Oct-2021 10:09) Authored: Initial Info, General Health, Health Mgmt, Relationship/Environ, Pre-op Checklist, Additional Information Tressa De OliveiraRN) (Signed 25-Oct-2021 11:15) Authored: Initial Info, General Health, Tobacco Use, Additional Information Last Updated: 28-Oct-2021 10:09 by Bhavya Gunter (RN) [facility] Initial Visit (Orthopaedic S urgery)on 09-27-2021 Initial Visit (Orthopaedic Surgery) Diagnoses/Problems Assessed Carpal tunnel syndrome (354.0) (G56.00) Patient Discussion/Summary By signing my name below, I, Linette Evans, attest that this documentation has been prepared under the direction and in the presence of Dr. Manoj Ojeda. All medical record entries made by the Scribe were at my direction and personally dictated by me. I have reviewed the chart and agree that the record accurately reflects my personal performance of the history, physical exam, discussion and plan. Provider Impressions Assessment- bilateral carpal tunnel syndrome Plan-patient presents today with symptoms of carpal tunnel syndrome bilaterally. She has been dealing with this with for many years and has been progressively worsening. She is interested in a surgical intervention to see if this can improve. We did discuss conservative and surgical management and she feels like she will put it off she does not pursue surgical intervention we discussed the risk benefits alternatives to surgery she was agreeable to proceed we will plan for surgery in the near future This note has been created with voice recognition software. Please be aware that there may be grammatical or contextual errors due to the use of the software. Chief Complaint PT HERE FOR MAHNAZ CTS. STATES RIGHT IS WORSE THAN LEFT. NUMBNESS AND TINGLING ARE CONSTANT. DIFFICULTY LIFTING/GRASPING OBJECTS. PAIN RADIATES INTO THE ELBOW. EMG DONE. REFERRED BY DR LANZA. History of Present Illness Patient is a pleasant 36-year-old female presenting today for bilateral carpal tunnel syndrome as referred by her PCP Dr. Lanza. EMG performed on 07/22/2021. Patient reports she has been experiencing carpal tunnel syndrome for some years and she has constant numbness and tingling of the hands. Although both of her hands are symptomatic, she reports the right hand to be more symptomatic than the left. She has difficulty with lifting and grabbing objects, as well as fine motor skills. She has pain of the hands that radiates up in to the elbow. Review of Systems Constitutional: no fever, no chills, not feeling tired, no recent weight gain and no recent weight loss. ENT: no nosebleeds. Cardiovascular: no chest pain. Respiratory: no shortness of breath and no cough. Gastrointestinal: no abdominal pain, no nausea, no vomiting and no diarrhea. Musculoskeletal: no arthralgias and as noted in HPI. Integumentary: no rashes and no skin wound. Neurological: no headache. Psychiatric: no depression and no sleep disturbances. Endocrine: no muscle weakness and no muscle cramps. Hematologic/Lymphatic: no swollen glands and no tendency for easy bruising. All other systems have been reviewed and are negative for complaint. *Active Problems Problems ADD (attention deficit disorder) (314.00) (F98.8) Numbness and tingling of left hand (782.0) (R20.0,R20.2) Numbness of right hand (782.0) (R20.0) Carpal tunnel syndrome (354.0) (G56.00) Surgical History Problems History of Nasal valve repair Family History Mother No pertinent family history Social History Problems Caffeine use (V49.89) (Z78.9) Never a smoker Patient has active durable power of assistant district attorney (DPOA) designee for healthcare Patient has living will (V49.89) (Z78.9) Rarely consumes alcohol (V49.89) (Z78.9) Allergies No Known Drug Allergies Recorded By: Steph Dave; 06/05/2021 10:44:07 AM Current Meds Medication NameInstruction Adderall 10 MG Oral Tablet Adderall XR 20 MG Oral Capsule Extended Release 24 Hour Famciclovir 500 MG Oral Tablet Vitals Vital Signs Recorded: [id number] 09:31AM Bwazyoitqnz91.5 F Height5 ft 6 in Kvlyaz275 lb 4 oz BMI Gdivmkahbm04.45 kg/m2 BSA Calculated1.9 Tobacco Useb) No Falls Screening (Age 18+)a) No falls within the last year Physical Exam Alert and Oriented x3 Patient resting comfortably in the exam room. Normocephalic atraumatic extraocular movements intact mucous membranes moist warm well perfused extremities nonlabored breathing appropriate mood and affect no evidence of lymphedema. Bilateral hands Skin is intact no erythema ecchymosis lesions or abrasions full range of motion of the wrist and fingers without limitations there is positive Tinel bilaterally positive Phalen there is gross intact motor and sensory in all distributions but slightly diminished two-point discrimination in the median nerve distribution palpable pulses brisk cap refill Signatures Electronically signed by : Manoj Ojeda DO; Sep 29 2021 12:03PM EST (Author) [facility] [place] [employer] Tobacco Screening.on 022 Fall risk assessment a) No falls within the last year [facility] 300 Work Phone: Tobacco use status CPHS b) No M [facility] 300 Work Phone: GLUCOSE,FASTINGon 06-11-2021 Glucose [Mass/Vol] 78 mg/dL Normal 74 - 99 [facility] Comment on above: Result Comment: INCR EASED RISK FOR DIABETES 100-125 mg/dL DIAGNOSTIC OF DIABETES >=126 mg/dL Diagnosis of diabetes mellitus requires confirmation of an abnormal result by repeat testing. [employer] [place], Diabetes Care; 33(Supp 1)Feb 2009. Performed By: #### G LUCF #### [id number] [place] [address] Glucose, Fastingon 2 Glucose post fast [Mass/Vol] 78 mg/dL 74 - 99 [facility] Work Phone: Comment on above: INCREASED RISK FOR D IABETES 100-125 mg/dL DIAGNOSTIC OF DIABETES >=126 mg/dL Diagnosis of diabetes mellitus requires confirmation of an abnormal result by repeat testing. [place], Diabetes Care; 33(Supp 1), Feb 2009. Laboratory - Chemistry and C hemistry - challengeon 06-11-2021 TSH Qn 2.22 m[IU]/L See Below [facility] Work Phone: Comment on above: Reference Range: 0.4 4 - 3.98 TSH testing is performed using different testing methodology at [facility] than at other [facility]. Direct result comparisons should only be made within the same method. TSH WITH REFLEX TO FREE T4 I F ABNORMALon 06-11-2021 TSH Qn 2.22 m[IU]/L Normal 0.44 - 3.98 [facility] Comment on above: Result Comment: TSH testing is performed using different testing methodology at [facility] than at [facility]. Direct result comparisons should only be made within the same method. Performed By: #### T HYDS #### [address] [address] VITAMIN B12on 06-11-2021 Cobalamin (Vitamin B12) [Mass/Vol] 485 pg/mL Normal 211 - 911 [facility] Comment on above: Performed By: #### V TB12 #### [address] [address] Vitamin B12, Serumon 022 Cobalamin (Vitamin B12) [Mass/Vol] 485 pg/mL 211 - 911 [facility] Work Phone: Office Visit (Family Medicin e)on 06-05-2021 Follow-up visit Diagnoses/Problems ADD (attention deficit disorder) (314.00) (F98.8) Numbness of right hand (782.0) (R20.0) Numbness and tingling of left hand (782.0) (R20.0,R20.2) Orders Numbness and tingling of left hand, Numbness of right hand EMG and Nerve Conduction; Status:Hold For - Scheduling; Requested for:05Jun2021; Electrodiagnostic Physician to determine whether Neuromuscular Ultrasound to be performed for optimal study : Yes Electrodiagnostic Physician to determine optimal study : Yes Patient is unable to stand or is >300lbs? : No Additional Clinical Information: : na Laterality : Bilateral Other (specify) : na EMG Indication : Other Glucose, Fasting; Status:Active; Requested for:[id number]; TSH WITH REFLEX TO FREE T4 IF ABNORMAL; Status:Active; Requested for:05Jun2021; Vitamin B12, Serum; Status:Active; Requested for:05Jun2021; Patient Discussion/Summary Recommend nerve conduction study to assess cause and severity, labs as well, Call concerns. 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 Adult Risk Screening Depression/Suicide Screening: During the past 2 weeks, the patient has not felt down, depressed or hopeless. During the past 2 weeks, the patient has not felt little interest or pleasure in doing things. History of Present Illness Pt presents for hand pain and numbness tingling. Has had for years, right greater than left, and is getting progressively worse. RIght hand is weak and hard to use, right hand dominant. USually first three , sometimes four fingers. Has tried carpal tunnel braces and they seemed to make it worse. No neck pain. Has ADD and sees specialist for meds for that . Review of Systems Constitutional: as noted in HPI. Cardiovascular: no chest pain. Psychiatric: no anxiety and no depression. Active Problems ADD (attention deficit disorder) (314.00) (F98.8) Surgical History History of Nasal valve repair Family History No pertinent family history Social History Caffeine use (V49.89) (Z78.9) Never a smoker Patient has active durable power of assistant district attorney (DPOA) designee for healthcare Patient has living will (V49.89) (Z78.9) Rarely consumes alcohol (V49.89) (Z78.9) Allergies No Known Drug Allergies Recorded By: Steph Dave; 06/05/2021 10:44:07 AM Current Meds Medication NameInstructionReason Adderall 10 MG Oral Tablet Adderall XR 20 MG Oral Capsule Extended Release 24 Hour Vitals Vital Signs Recorded: 05Jun2021 10:45AM Heart Rate80 Tzckjmpk584, LUE, Sitting Wnvvhztym05, LUE, Sitting Height5 ft 6 in [place] lb BMI Jkzshedozw50.21 kg/m2 BSA Calculated1.92 Tobacco Useb) No Physical Exam Constitutional: Alert and in no acute distress. Well developed, well nourished. Head and Face: Head and face: Normal. Pulmonary: No respiratory distress. Musculoskeletal: mild right thenar atrophy, positive tinels right, positive phalens bilaterally. 'Scores and Scales' Signatures Electronically signed by : Rosa Isela Lanza MD; Jun 05 2021 1:26PM EST (Author) [facility] [place] [employer] Tobacco Screening.on 04-27-2 022 Tobacco use status CPHS b) No M [facility] 205 DO Work Phone: VL Venous Duplex US Lower Ex t Bilateralon 12-14-2020 VL Venous Duplex US Lower Ext Bilateral Patient Name: JUAN JOSE BOWERS Ultrasound ACCESSION EXAM DATE/TIME PROCEDURE ORDERING PROVIDER [id number] 12/14/2020 16:25 EDT VL Venous Duplex US MD JESUS, YULIANA [place] Lower Ext Bilateral CPT code 44185 Reason For Exam (VL Venous Duplex US Lower Ext Bilateral) Other specified soft tissue disorders Report [facility] -- Lower Extremity Venous Duplex Report Patient DO KimB: 1985 Study 12/14/2020 Name: Juan Jose (35yrs) Date: Patient [id number] Age: 35 Account: [id number] ID: Gender: F Loc: BP: Ordering Physician: [employer] Teacher: Jazzmine Bryan RVT Interpreting Physician: Oscar Gonzalez M.D. -- Location: [address] -- Indications: Leg swelling, rash. -- Conclusions 1. There is no evidence of acute deep or superficial venous thrombosis noted in the right lower extremity. 2. There is no evidence of acute deep or superficial venous thrombosis noted in the left lower extremity. 3. Incidental finding enlarged left inguinal lymph node noted 0.81cm x 1.47cm. -- History: Risk factors: Nonsmoker. -- Study data: Complete lower extremity venous duplex evaluation. Grayscale 2D imaging, color Doppler imaging, and spectral Doppler analysis. Location: Vascular laboratory. Procedure: A vascular evaluation was performed with the patient in the supine position. Images were obtained using a [email or web address] vascular ultrasound machine. Ultrasound Report -- Venous flow and imaging: + +--- ----+ ---+ -+ +Location +Overall+Properties +Comments + + +--- ----+ ---+ -+ +R CFV +Patent +Normal phasicity; + + + + +spontaneous; normal + + + + +augmentation; + + + + +compressible + + + +--- ----+ ---+ -+ +R saphenofemoral +Patent +Compressible + + +junction + + + + + +--- ----+ ---+ -+ +R profunda femoral+Patent +Spontaneous + + + +--- ----+ ---+ -+ +R FV - prox. +Patent +Compressible + + + +--- ----+ ---+ -+ +R FV - mid +Patent +Normal phasicity; + + + + +spontaneous; normal + + + + +augmentation; + + + + +compressible + + + +--- ----+ ---+ -+ +R FV - distal +Patent +Compressible + + + +--- ----+ ---+ -+ +R popliteal +Patent +Normal phasicity; + + + + +spontaneous; normal + + + + +augmentation; + + + + +compressible + + + +--- ----+ ---+ -+ +R gastrocnemius +Patent +Compressible + + + +--- ----+ ---+ -+ +R PTV +Patent +Compressible + + + +--- ----+ ---+ -+ +R peroneal +Patent +Compressible + + + +--- ----+ ---+ -+ +R soleal +Patent +Compressible + + + +--- ----+ ---+ -+ +R GSV +Patent +Compressible + + + +--- ----+ ---+ -+ +L CFV +Patent +Normal phasicity; + + + + +spontaneous; normal + + + + +augmentation; + + + + +compressible + + + +--- ----+ ---+ -+ +L saphenofemoral +Patent +Compressible + + +junction + + + + + +--- ----+ ---+ -+ +L profunda femoral+Patent +Spontaneous + + + +--- ----+ ---+ -+ +L FV - prox. +Patent +Compressible +Incidental finding: + + + + +Enlarged lymph node + + + + +noted 0.81cm x + + + + +1.47cm. + + +--- ----+ ---+ -+ +L FV - mid +Patent +Normal phasicity; + + + + +spontaneous; normal + + + + +augmentation; + + + + +c (more content not included)... Normal nap- Naturally Attached Parents CBC Auto DifferentialOrdered By: Yuliana Bailey on 12-13-2020 Absolute Baso # 0.0 10*3/uL 0.0 - 0.2 10*3/uL [employer] Work Phone: Absolute Neut # 3.2 10*3/uL 1.8 - 7.0 10*3/uL [facility] Work Phone: Basophils/100 WBC (Bld) 0.8 % 0.0 - 2.0 % [facility] Work Phone: Eosinophils (Bld) [#/Vol] 0.1 10*3/uL 0.0 - 0.5 10*3/uL [facility] Work Phone: Eosinophils/100 WBC (Bld) 1.6 % 1.0 - 6.0 % [facility] Work Phone: Granulocytes/100 WBC (Bld) 56.7 % 40.0 - 80.0 % [facility] Work Phone: Hematocrit (Bld) [Volume fraction] 39.8 % 35.0 - 47.0 % [facility] Work Phone: Hemoglobin.gastrointesti nal spec 1 Ql (Stl) 13.3 g/dL 11.7 - 16.0 g/dL [facility] Work Phone: Interpretation and review of laboratory results Abnormal [facility] Work Phone: Lymphocytes (Bld) [#/Vol] 1.6 10*3/uL 1.0 - 4.3 10*3/uL [employer] Work Phone: Lymphocytes/100 WBC (Bld) 28.2 % 20.0 - 40.0 % [facility] Work Phone: MCH (RBC) [Entitic mass] 30.1 pg 26. 0 - 34.0 pg [facility] Work Phone: MCHC (RBC) [Mass/Vol] 33.5 % 32.0 - 36.0 % [facility] Work Phone: MCV (RBC) [Entitic vol] 89.7 fL 79.0 - 98.0 fL [facility] Work Phone: Monocytes (Bld) [#/Vol] 0.7 10*3/uL 0.0 - 0.8 10*3/uL [facility] Work Phone: Monocytes/100 WBC (Bld) 12.7 % High 2.0 - 10.0 % [facility] Work Phone: Platelet distribution width (Bld) [Ratio] 12.9 % 11.5 - 14.5 % [facility] Work Phone: Platelet mean volume (Bld) [Entitic vol] 6.7 fL Low 7.4 - 10.4 fL [facility] Work Phone: 1 Platelets (Bld) [#/Vol] 346 10*3/uL 140 - 440 10*3/uL [facility] Work Phone: 1 RBC (Bld) [#/Vol] 4.44 10*6/uL 3.80 - 5.2 0 10*6/uL [facility] Work Phone: 1) WBC (Bld) [#/Vol] 5.6 10*3/uL 3.6 - 10.7 10*3/uL [facility] Work Phone: 1 Test Performed by [facility], [address] , [place], [place] [address] Work Phone: 1 [facility] Work Phone: 1 Hemogram w/ Autodiffon 12-13 Abs Baso Cnt 0.0 10*3/uL Normal 0.0-0.2 [facility] Comment on above: Performed By: #### H EMDF #### [facility] [address] [place] [address] Abs Neutrophile Cnt 3.2 10*3/uL Normal 1.8-7.0 [facility] Comment on above: Performed By: #### H EMDF #### [facility] [address] [place] [address] Basophils/100 WBC (Bld) 0.8 % Normal 0.0-2.0 [facility] Comment on above: Performed By: #### H EMDF #### [facility] [address] [place] [address] Eosinophils (Bld) [#/Vol] 0.1 10*3/uL Normal 0.0-0.5 [facility] Comment on above: Performed By: #### H EMDF #### [facility] [address] [facility] [place] [place] [address] Eosinophils/100 WBC (Bld) 1.6 % Normal 1.0-6.0 [facility] Comment on above: Performed By: #### H EMDF #### [facility] [address] [place] [address] Erythrocyte distribution width (RBC) [Ratio] 12.9 % Normal 11.5-14.5 [facility] Comment on above: Performed By: #### H EMDF #### [facility] [address] [place] [address] Granulocytes/100 WBC (Bld) 56.7 % Normal 40.0-80.0 [facility] Comment on above: Performed By: #### H EMDF #### [facility] [address] [place] [address] Hematocrit (Bld) [Volume fraction] 39.8 % Normal 35.0-47.0 [facility] Comment on above: Performed By: #### H EMDF #### [facility] [address] [place] [address] Hemoglobin (Bld) [Mass/Vol] 13.3 g/dL Normal 11.7-16.0 [facility] Comment on above: Performed By: #### H EMDF #### [facility] [address] [place] [address] Lymphocytes (Bld) [#/Vol] 1.6 10*3/uL Normal 1.0-4.3 [facility] Comment on above: Performed By: #### H EMDF #### [facility] [address] [place] [address] Lymphocytes/100 WBC (Bld) 28.2 % Normal 20.0-40.0 [facility] Comment on above: Performed By: #### H EMDF #### [facility] [address] [place] [address] MCH (RBC) [Entitic mass] 30.1 pg Normal 26.0-34.0 [facility] Comment on above: Performed By: #### H EMDF #### [facility] [address] [place] [address] MCHC 33.5 % Normal 32.0-36.0 [facility] Comment on above: Performed By: #### H EMDF #### [facility] [address] [place] [address] MCV (RBC) [Entitic vol] 89.7 fL Normal 79.0-98.0 [facility] Comment on above: Performed By: #### H EMDF #### [facility] [address] [place] [address] Monocytes (Bld) [#/Vol] 0.7 10*3/uL Normal 0.0-0.8 [facility] Comment on above: Performed By: #### H EMDF #### [facility] [address] [place] [address] Monocytes/100 WBC (Bld) 12.7 % High 2.0-10.0 [facility] Comment on above: Performed By: #### H EMDF #### [facility] [address] [place] [address] Platelet mean volume (Bld) [Entitic vol] 6.7 fL Low 7.4-10.4 [facility] Comment on above: Performed By: #### H EMDF #### [facility] [address] [place] [address] Platelets (Bld) [#/Vol] 346 10*3/uL Normal 140-440 [facility] Comment on above: Performed By: #### H EMDF #### [facility] [address] [place] [address] RBC (Bld) [#/Vol] 4.44 10*6/uL Normal 3.80-5.20 [facility] Comment on above: Performed By: #### H EMDF #### [facility] [address] [place] [address] WBC (Bld) [#/Vol] 5.6 10*3/uL Normal 3.6-10.7 [facility] Comment on above: Performed By: #### H EMDF #### [facility] [address] [place] [address] XR FOOT RIGHT 3 VIEWSon XR FOOT RIGHT 3 VIEWS EXAM: XR FOOT RIGH T 3 VIEWS HISTORY: Foot injury. COMPARISON: None available. FINDINGS: 3 views of the right foot were obtained. AP, lateral and oblique views were performed. No acute fracture. Joint alignment is anatomic. Joint spaces are preserved. Soft tissues are within normal limits. IMPRESSION: No acute bony abnormality. Normal [facility] IMPRESSION: No acute bony abnormality. RADIOLOGY EXAM: XR FOOT RIGHT 3 VIEWS HISTORY: Foot injury. COMPARISON: None available. FINDINGS: 3 views of the right foot were obtained. AP, lateral and oblique views were performed. No acute fracture. Joint alignment is anatomic. Joint spaces are preserved. Soft tissues are within normal limits. RADIOLOGY User, Interfaces - 03/16/2018 2:53 PM EST EXAM: XR FOOT RIGHT 3 VIEWS HISTORY: Foot injury. COMPARISON: None available. FINDINGS: 3 views of the right foot were obtained. AP, lateral and oblique views were performed. No acute fracture. Joint alignment is anatomic. Joint spaces are preserved. Soft tissues are within normal limits. IMPRESSION IMPRESSION: No acute bony abnormality. RADIOLOGY Vital Signs Date Time Vital Sign Value Performing Clinician Facility 06-02-2024 08:48-0400 Body mass index (BMI) [Ratio] 25.18 kg/m2 Genie Rodas MD Work Phone: [facility] 06-02-2024 08:48-0400 Body weight 70.76 kg Genie Rodas MD Work Phone: [facility] 05-22-2024 20:42-0400 Body temperature 98.3 [degF] Dr. Alex Katz DO Work Phone: [facility] 05-22-2024 20:42-0400 Diastolic blood pressure 78 mm[Hg] Dr. Alex Katz DO Work Phone: [facility] 05-22-2024 20:42-0400 Heart rate 77 /min Dr. Alex Katz DO Work Phone: [facility] 05-22-2024 20:42-0400 Respiratory rate 16 /min Dr. Alex Katz DO Work Phone: [facility] 05-22-2024 20:42-0400 SaO2% (BldA) [Mass fraction] 98 % Dr. Alex Katz DO Work Phone: [facility] 05-22-2024 20:42-0400 Systolic blood pressure 110 mm[Hg] Dr. Alex Katz DO Work Phone: [facility] 05-22-2024 18:53-0400 Body height 162.[address] Alex Katz DO Work Phone: [facility] 05-22-2024 18:53-0400 Body mass index (BMI) [Ratio] 26.9 kg/m2 Dr. Alex Katz DO Work Phone: [facility] 05-22-2024 18:53-0400 Body weight 71.[address] Alex Katz DO Work Phone: [facility] 05-06-2024 08:25-0400 Body height 167.6 cm Rosa Isela Lanza MD Work Phone: [facility] 05-06-2024 08:25-0400 Body mass index (BMI) [Ratio] 24.69 kg/m2 Rosa Isela Lanza MD Work Phone: [phone] 05-06-2024 08:25-0400 Body weight 69.4 kg Rosa Isela Lanza MD Work Phone: [facility] 05-06-2024 08:25-0400 Diastolic blood pressure 72 mm[Hg] Rosa Isela Lanza MD Work Phone: [facility] 05-06-2024 08:25-0400 Heart rate 88 /min Rosa Isela Lanza MD Work Phone: [facility] 05-06-2024 08:25-0400 Systolic blood pressure 124 mm[Hg] Rosa Isela Lanza MD Work Phone: [facility] 04-01-2024 11:28-0500 Body height 167.6 cm Rosa Isela Lanza MD Work Phone: [facility] 04-01-2024 11:28-0500 Body mass index (BMI) [Ratio] 26.63 kg/m2 Rosa Isela Lanza MD Work Phone: [facility] 04-01-2024 11:28-0500 Body weight 74.84 kg Rosa Isela Lanza MD Work Phone: [facility] 04-01-2024 11:28-0500 Diastolic blood pressure 74 mm[Hg] Rosa Isela Lanza MD Work Phone: [facility] 04-01-2024 11:28-0500 Heart rate 76 /min Rosa Isela Lanza MD Work Phone: [facility] 04-01-2024 11:28-0500 Systolic blood pressure 124 mm[Hg] Rosa Isela Lanza MD Work Phone: [facility] 08-25-2023 13:25-0400 Body height 167.6 cm Rosa Isela Lanza MD Work Phone: [facility] 08-25-2023 13:25-0400 Body mass index (BMI) [Ratio] 25.34 kg/m2 Rosa Isela Lanza MD Work Phone: [facility] 08-25-2023 13:25-0400 Body weight 71.22 kg Rosa Isela Lanza MD Work Phone: [facility] 08-25-2023 13:25-0400 Diastolic blood pressure 70 mm[Hg] Rosa Isela Lanza MD Work Phone: [facility] 08-25-2023 13:25-0400 Heart rate 76 /min Rosa Isela Lanza MD Work Phone: [facility] 08-25-2023 13:25-0400 Systolic blood pressure 120 mm[Hg] Rosa Isela Lanza MD Work Phone: [facility] 08-03-2023 10:10-0400 Body temperature 97.3 [degF] Meir Farrell MD Work Phone: [facility] [employer] 08-03-2023 10:10-0400 Body weight 70.31 kg Meir Farrell MD Work Phone: [facility] [employer] 08-03-2023 10:10-0400 Diastolic blood pressure 75 mm[Hg] Meir Farrell MD Work Phone: [facility] [employer] 08-03-2023 10:10-0400 Heart rate 86 /min Meir Farrell MD Work Phone: [facility] 08-03-2023 10:10-0400 Respiratory rate 14 /min Meir Farrell MD Work Phone: [facility] 08-03-2023 10:10-0400 SaO2% (BldA) [Mass fraction] 100 % Meir Farrell MD Work Phone: [facility] 08-03-2023 10:10-0400 Systolic blood pressure 125 mm[Hg] Meir Farrell MD Work Phone: [facility] 09-15-2022 09:55-0400 Body height 167.6 cm Rosa Isela Lanza MD Work Phone: [facility] 09-15-2022 09:55-0400 Body mass index (BMI) [Ratio] 27.02 kg/m2 Rosa Isela Lanza MD Work Phone: [facility] 09-15-2022 09:55-0400 Body weight 75.93 kg Rosa Isela Lanza MD Work Phone: [facility] 09-15-2022 09:55-0400 Diastolic blood pressure 64 mm[Hg] Rosa Isela Lanza MD Work Phone: [facility] 09-15-2022 09:55-0400 Heart rate 76 /min Rosa Isela Lanza MD Work Phone: [facility] 09-15-2022 09:55-0400 Systolic blood pressure 118 mm[Hg] Rosa Isela Lanza MD Work Phone: [facility] 08-14-2022 10:25-0400 Body temperature 98.4 [degF] DULCE MARIA Zuniga DPM Work Phone: [facility] 08-14-2022 10:25-0400 Diastolic blood pressure 76 mm[Hg] DULCE MARIA Zuniga DPM Work Phone: [facility] 08-14-2022 10:25-0400 Heart rate 76 /min CJ Hassmann DPM Work Phone: [facility] 08-14-2022 10:25-0400 Systolic blood pressure 118 mm[Hg] CJ Hassmann DPM Work Phone: [facility] 07-08-2022 14:00-0400 Body temperature 98.29 [degF] CJ Hassmann DPM Work Phone: [facility] 07-08-2022 14:00-0400 Diastolic blood pressure 80 mm[Hg] CJ Hassmann DPM Work Phone: [facility] 07-08-2022 14:00-0400 Heart rate 82 /min CJ Hassmann DPM Work Phone: [facility] 07-08-2022 14:00-0400 Systolic blood pressure 131 mm[Hg] CJ Hassmann DPM Work Phone: [facility] 01-28-2022 16:13-0500 Body temperature 97.7 [degF] Baudilio Gonzalesman DPM Work Phone: [facility] 01-28-2022 16:13-0500 Diastolic blood pressure 79 mm[Hg] Baudilio Gonzalesman DPM Work Phone: [facility] 01-28-2022 16:13-0500 Heart rate 81 /min Baudilio Gonzalesman DPM Work Phone: [facility] 01-28-2022 16:13-0500 Systolic blood pressure 132 mm[Hg] Baudilio Cervantesmerman DPM Work Phone: [facility] 01-14-2022 16:04-0500 Body temperature 97.9 [degF] Baudilio Cervantesmerman DPM Work Phone: [facility] 01-14-2022 16:04-0500 Diastolic blood pressure 72 mm[Hg] Baudilioyvette CervantesField DPM Work Phone: [facility] 01-14-2022 16:04-0500 Heart rate 76 /min Baudilio Field DPM Work Phone: [facility] 01-14-2022 16:04-0500 Systolic blood pressure 121 mm[Hg] Baudilio Field DPM Work Phone: [facility] 01-08-2022 14:13-0500 Diastolic blood pressure 80 mm[Hg] Dr. Alex Katz Work Phone: [facility] Work Phone: 01-08-2022 14:13-0500 Systolic blood pressure 115 mm[Hg] Dr. Alex Katz Work Phone: [facility] Work Phone: 01-08-2022 14:05-0500 Body height 162.[address] Alex Katz Work Phone: [facility] Work Phone: 01-08-2022 14:03-0500 Body mass index (BMI) [Ratio] 30.4 kg/m2 Dr. Alex Katz Work Phone: [facility] Work Phone: 01-08-2022 14:03-0500 Body weight 80.[address] Alex Katz Work Phone: [facility] Work Phone: 12-24-2021 11:43-0500 Body height 167.64 cm Rosa Isela Lanza Work Phone: [facility] Work Phone: 12-24-2021 11:43-0500 Body mass index (BMI) [Ratio] 29.08 kg/m2 Rosa Isela Lanza Work Phone: [facility] Work Phone: 12-24-2021 11:43-0500 Body surface area Derived from formula 1.91 m2 Rosa Isela Lanza Work Phone: [facility] Work Phone: 12-24-2021 11:43-0500 Body weight 81.73 kg Rosa Isela Lanza Work Phone: [facility] Work Phone: 12-24-2021 11:43-0500 Diastolic blood pressure 80 mm[Hg] Rosa Isela Lanza Work Phone: [facility] Work Phone: 12-24-2021 11:43-0500 Heart rate 80 /min Rosa Isela Lanza Work Phone: [facility] Work Phone: 12-24-2021 11:43-0500 Systolic blood pressure 120 mm[Hg] Rosa Isela Lanza Work Phone: [facility] Work Phone: 12-03-2021 08:44-0400 Body temperature 97.1 [degF] Rosa Isela Lanza Work Phone: [facility] [address] Work Phone: 11-26-2021 08:31-0400 Body height 167.64 cm Rosa Isela Lanza Work Phone: [facility] [address] Work Phone: 11-26-2021 08:31-0400 Body mass index (BMI) [Ratio] 28.41 kg/m2 Rosa Isela Lanza Work Phone: [facility] [address] Work Phone: 11-26-2021 08:31-0400 Body surface area Derived from formula 1.89 m2 Rosa Isela Lanza Work Phone: [facility] 300 Work Phone: 11-26-2021 08:31-0400 Body weight 79.83 kg Rosa Isela Lanza Work Phone: [facility] 300 Work Phone: 11-08-2021 11:32-0400 Body height 167.64 cm Rosa Isela Lanza Work Phone: [facility] [address] Work Phone: 11-08-2021 11:32-0400 Body mass index (BMI) [Ratio] 28.41 kg/m2 Rosa Isela Lanza Work Phone: [facility] [address] Work Phone: 11-08-2021 11:32-0400 Body surface area Derived from formula 1.89 m2 Rosa Isela Lanza Work Phone: [facility] 300 Work Phone: 11-08-2021 11:32-0400 Body temperature 97.5 [degF] Rosa Isela Lanza Work Phone: [facility] [address] Work Phone: 11-08-2021 11:32-0400 Body weight 79.83 kg Rosa Isela Lanza Work Phone: [facility] [address] Work Phone: 09-27-2021 09:31-0400 Body height 167.64 cm Rosa Isela Lanza Work Phone: [facility] [address] Work Phone: 09-27-2021 09:31-0400 Body mass index (BMI) [Ratio] 28.45 kg/m2 Rosa Isela Lanza Work Phone: [facility] [address] Work Phone: 09-27-2021 09:31-0400 Body surface area Derived from formula 1.9 m2 Rosa Isela Lanza Work Phone: [facility] 300 Work Phone: 09-27-2021 09:31-0400 Body temperature 97.5 [degF] Rosa Isela Lanza Work Phone: [facility] 300 Work Phone: 09-27-2021 09:31-0400 Body weight 79.95 kg Rosa Isela Lanza Work Phone: [facility] 300 Work Phone: 06-05-2021 10:45-0400 Body height 167.64 cm Rosa Isela Lanza Work Phone: [facility] 205 DO Work Phone: 06-05-2021 10:45-0400 Body mass index (BMI) [Ratio] 29.21 kg/m2 Rosa Isela Lanza Work Phone: [facility] 205 DO Work Phone: 06-05-2021 10:45-0400 Body surface area Derived from formula 1.92 m2 Rosa Isela Lanza Work Phone: [facility] 205 DO Work Phone: 06-05-2021 10:45-0400 Body weight 82.1 kg Rosa Isela Lanza Work Phone: [facility] 205 DO Work Phone: 06-05-2021 10:45-0400 Diastolic blood pressure 78 mm[Hg] Rosa Isela Lanza Work Phone: [facility] 205 DO Work Phone: 06-05-2021 10:45-0400 Heart rate 80 /min Rosa Isela Lanza Work Phone: [facility] 205 DO Work Phone: 06-05-2021 10:45-0400 Systolic blood pressure 124 mm[Hg] [facility] Work Phone: 12-13-2020 21:01-0400 Body temperature 96.8 [degF] Yuliana Bailey MD Work Phone: [facility] Work Phone: 12-13-2020 21:01-0400 Diastolic blood pressure 85 mm[Hg] Yuliana Bailey MD Work Phone: [facility] Work Phone: 12-13-2020 21:01-0400 Heart rate 82 /min Yuliana Bailey MD Work Phone: [facility] Work Phone: 12-13-2020 21:01-0400 Respiratory rate 16 /min Yuliana Bailey MD Work Phone: [facility] Work Phone: 12-13-2020 21:01-0400 SaO2% (BldA) [Mass fraction] 100 % Yuliana Bailey MD Work Phone: [facility] Work Phone: 12-13-2020 21:01-0400 Systolic blood pressure 126 mm[Hg] Yuliana Bailey MD Work Phone: [facility] Work Phone: 03-16-2018 13:16-0500 BMI (Body Mass Index) 23.4 kg/m2 [facility] Work Phone: 03-16-2018 13:16-0500 Height 167.6 cm [facility] Work Phone: 03-16-2018 13:16-0500 Weight 65.77 kg [facility] Work Phone: 03-16-2018 13:15-0500 Body Temperature 98.71 [degF] [facility] Work Phone: 03-16-2018 13:15-0500 BP Diastolic 64 mm[Hg] [facility] Work Phone: 03-16-2018 13:15-0500 BP Systolic 130 mm[Hg] [facility] Work Phone: 03-16-2018 13:15-0500 Pulse (Heart Rate) 74 /min [facility] Work Phone: 03-16-2018 13:15-0500 Pulse Oximetry 99 % [facility] Work Phone: 03-16-2018 13:15-0500 Respiratory Rate 18 /min [facility] Work Phone: Encounters Encounter Date Encounter Type Care Provider Facility Start: 06-02-2024 End: 06-02-2024 Office outpatient new 45 minutes Genie Rodas MD Work Phone: [facility] Comment on above: Bilateral elbow join t pain Start: 06-02-2024 End: 06-02-2024 Subsequent hospital visit by physician [facility]TERNAL [facility] Comment on above: Arrived Bilateral elbow join t pain Start: 06-02-2024 End: 06-02-2024 ambulatory GENIE RODAS [facility] Start: 05-22-2024 End: 05-22-2024 Emergency department patient visit Dr. Alex Katz DO Work Phone: -Emergency Department Work Phone: Start: 05-06-2024 End: 05-06-2024 ambulatory ROSA ISELA [facility] Start: 05-06-2024 End: 05-06-2024 Office outpatient visit 15 minutes Rosa Isela Lanza MD Work Phone: [facility] Comment on above: Bilateral elbow join t pain (Primary Dx) Start: 04-01-2024 End: 04-01-2024 ambulatory [facility] Start: 04-01-2024 End: 04-01-2024 Office outpatient visit 15 minutes Rosa Isela Lanza MD Work Phone: [facility] Comment on above: Bilateral elbow join t pain (Primary Dx) Start: 10-08-2023 Encounter for gynecological examination (general) (routine) without abnormal findings Raina Singer [facility] Start: 10-08-2023 End: 10-08-2023 ambulatory Alex Katz Facility:[facility] Start: 08-25-2023 End: 08-25-2023 Office outpatient visit 15 minutes Rosa Isela Lanza MD Work Phone: [facility] Comment on above: Rash and nonspecific skin eruption (Primary Dx) Start: 08-25-2023 End: 08-25-2023 ambulatory ROSA ISELA Diaz [facility] Ambulatory Start: 08-03-2023 End: 08-03-2023 Subsequent hospital visit by physician [facility] X[facility] Radiology Comment on above: Arrived Start: 08-03-2023 End: 08-03-2023 Emergency department patient visit Meir Farrell MD Work Phone: [facility] ED Comment on above: Contusion of right a nkle, initial encounter (Primary Dx) Start: 01-26-2023 ambulatory MARILYNN ROSALES [facility] Start: 09-15-2022 End: 09-15-2022 Office outpatient visit 15 minutes Rosa Isela Lanza MD Work Phone: [facility] Comment on above: Atypical nevus (Prim jaime Dx) Start: 08-14-2022 End: 08-14-2022 ambulatory SLATER RAGHAVENDRA [facility] Ambulatory Start: 08-14-2022 End: 08-14-2022 Office outpatient visit 10 minutes DULCE MARIA Zuniga DPM Work Phone: [facility] Comment on above: Plantar fasciitis (P rimary Dx); Foot pain, right Start: 07-08-2022 End: 07-12-2022 ambulatory SLATER RAGHAVENDRA [facility] Ambulatory Start: 07-08-2022 End: 07-08-2022 Office outpatient visit 15 minutes DULCE MARIA Zuniga DPM Work Phone: [facility] Comment on above: Plantar fasciitis (P rimary Dx); Heel spur, right; Foot pain, right Start: 01-28-2022 End: 01-28-2022 ambulatory BAUDILIO FIELD [facility] Ambulatory Start: 01-28-2022 End: 01-28-2022 Patient encounter procedure Baudilio Field DPM Work Phone: [facility] Podiatry Comment on above: Plantar fasciitis, b ilateral (Primary Dx) Start: 01-14-2022 End: 01-18-2022 ambulatory BAUDILIO FIELD [facility] Ambulatory Start: 01-14-2022 End: 01-14-2022 Office outpatient new 30 minutes Baudilio Filed DPM Work Phone: [facility] Pod[facility]ry Comment on above: Foot pain, bilateral (Primary Dx); Heel spur, right; Heel spur, left; Plantar fasciitis, bilateral Start: 01-13-2022 End: 01-13-[address] Alex Katz Work Phone: [facility] Work Phone: Start: 01-13-2022 End: 01-13-[address] Alex Katz Work Phone: [facility], [facility] Start: 01-09-2022 End: 01-09-[address] Alex Katz Work Phone: [facility] Work Phone: Start: 01-09-2022 End: 01-09-[address] Alex Katz Work Phone: [facility] Start: 01-08-2022 End: 01-08-[address] Alex aKtz Work Phone: [facility] Start: 12-26-2021 Chart Update Rosa Isela Lanza Work Phone: [facility] Work Phone: Start: 12-26-2021 Transcribe Orders Nadine August MA [facility] Comment on above: Right foot pain (Thea franci Dx) Start: 12-25-2021 AUDIT Rosa Isela Lanza Work Phone: [facility] Work Phone: Start: 12-24-2021 Office outpatient vi sit 25 minutes Rosa Isela Lanza Work Phone: [facility] Work Phone: Start: 12-24-[address] ROSA ISELA LANZA Facility:[id number] Start: 12-03-2021 ambulatory Manoj Ojeda Fac ility:[id number] Start: 12-03-2021 Postop follow up vis it related to original px Rosa Isela Lanza Work Phone: [facility] 300 Work Phone: Start: 11-26-2021 ambulatory Manoj Ojeda Fac ility:[id number] Start: 11-26-2021 Patient encounter procedure Rosa Isela Lanza Work Phone: [facility] 300 Work Phone: Start: 11-26-2021 Postop follow up vis it related to original px Rosa Isela Lanza Work Phone: [facility] 300 Work Phone: Start: 11-13-2021 End: 11-13-[address] Manoj Ojeda Facility:[id number] Start: 11-08-2021 ambulatory Manoj Ojeda Fac ility:[id number] Start: 11-08-2021 Patient encounter procedure Rosa Isela Lanza Work Phone: [facility] 300 Work Phone: Start: 11-08-2021 Postop follow up vis it related to original px Rosa Isela Lanza Work Phone: [facility] 300 Work Phone: Start: 10-28-2021 End: 10-28-[address] Manoj Ojeda Facility:[id number] Start: 09-27-2021 Office outpatient ne w 30 minutes Rosa Isela Lanza Work Phone: [facility] 300 Work Phone: Start: 09-27-2021 Patient encounter procedure Rosa Isela Lanza Work Phone: [facility] Work Phone: Start: 09-27-[address] ROSA ISELA LANZA Facility:[id number] Start: 08-15-2021 AUDIT Rosa Isela Lanza Work Phone: [facility] Work Phone: Start: 06-06-2021 Transcribe Orders Rosa Isela Camara MD Work Phone: [facility], Neuroscience Comment on above: Numbness and tinglin g of hand (Primary Dx) Start: 06-05-2021 Office outpatient vi sit 25 minutes Rosa Isela Lanza Work Phone: [facility] 205 DO Work Phone: Start: 06-05-[address] ROSA ISELA LANZA Facility:[id number] Start: 12-13-2020 End: 12-13-2020 Emergency department patient visit Yuliana Bailey MD Work Phone: [facility] Comment on above: Leg swelling (Primar y Dx); Rash Start: 03-16-2018 End: 03-16-2018 Emergency department patient visit [facility] Start: 03-16-2018 End: 03-16-2018 Emergency department patient visit [facility] Emergency Department Procedures Date Procedure Procedure Detail Performing Clinician Start: 06-02-2024 US Abdomen Genie benson MD Work Phone: Start: 05-22-2024 SARS-CoV-2, Influenz a & RSV (PCR) Dr. Alex Katz DO Work Phone: Start: 08-03-2023 Radex ankle complete minimum 3 views Meir Farrell MD Work Phone: Start: 08-14-2022 Follow-up visit Follow-up CASTILLO ZUNIGA II Start: 01-13-[address] Alex Katz Work Phone: Start: 12-25-2021 Thyrotropin [Units/v olume] in Serum or Plasma Rosa Isela Lanza MD Work Phone: Start: 12-13-2020 Blood count complete auto&auto difrntl wbc Yuliana Bailey MD Work Phone: Start: 03-16-2018 End: 03-16-2018 X-ray of right foot Genevieve Laws Work Phone: Decompression of med yvette nerve Rosa Isela Lanza Work Phone: Repair of nose Rosa Isela Lanza Work Phone: Plan of Treatment Date Care Activity Detail Author Start: 2043 RSV Immunization age d 60 or older (1 - 1-dose 60+ series) RSV Immunization aged 60 or older (1 - 1-dose 60+ series) [facility] Start: 09-25-2033 Zoster Vaccines (1 o f 2) Zoster Vaccines (1 of 2) [facility] Start: 09-11-2028 DTaP/Tdap/Td Vaccine s (3 - Td or Tdap) DTaP/Tdap/Td Vaccines (3 - Td or Tdap) [facility] Start: 09-11-2028 Tetanus vaccination Tetanus: Every [address] [facility] Start: 10-10-2024 Influenza vaccination Influenz a Vaccine (Season Ended) [facility] Start: 07-28-2024 End: 07-28-2024 Patient encounter procedure 07/28/2024 8:30 AM EDT Office Visit [facility] [address] [place] [id number] Genie Rodas MD [address] [place] [address] [facility] Start: 06-11-2024 Diabetes mellitus screening Diabetes Screening [facility] Start: 05-23-2024 End: 05-23-2025 XR Elbow - bilateral 3 Views XR elbow 3+ views bilateral Imaging Routine Bilateral elbow joint pain Expected: 05/23/2024 (Approximate), Expires: 05/23/2025 [facility] Service Area Work Phone: Comment on above: Expected: 05/23/2024 (Approximate), Expires: 05/23/2025 Start: 05-22-2024 [facility] Start: 10-11-2023 COVID-19 Vaccine ( season) COVID-19 Vaccine ( season) [facility] Start: 10-11-2023 Influenza vaccination Influenza Vacc ine (#1) [facility] Start: 2023 Screening for malign ant neoplasm of breast Mammogram [facility] Start: 12-25-2022 Thyroid stimulating hormone measurement TSH Level [facility] Start: 10-10-2022 COVID-19 Vaccine ( season) COVID-19 Vaccine () [employer] Start: 10-10-2022 Influenza vaccination [facility] Start: 08-14-2022 End: 08-14-2022 Patient encounter procedure 08/14/2022 10:00 AM EDT Office Visit [facility] [address] [place] [address] DULCE MARIA Zuniga, DPM [address] [place] [address] [facility] Start: 01-28-2022 End: 01-28-2022 Patient encounter procedure 01/28/2022 Office Visit Podiatry Baudilio Field, MARIS [address] [place] [address] [facility] Start: 01-09-2022 17-Hydroxyprogestero ne [Mass/volume] in Serum or Plasma [facility] Work Phone: Start: 12-03-2021 POV, Provider: Manoj Ojeda, Status: Pen, Time: 8:30 AM POV, Provider: Manoj Ojeda, Status: Pen, Time: 8:30 AM [facility] 300 Work Phone: Start: 11-13-2021 [facility] Provider: Manoj Ojeda, Status: Pen, Time: 10:30 AM [facility] Provider: Manoj Ojeda, Status: Pen, Time: 10:30 AM [facility] 300 Work Phone: Start: 11-08-2021 POV, Provider: Manoj Ojeda, Status: Pen, Time: 11:00 AM POV, Provider: Manoj Ojeda, Status: Pen, Time: 11:00 AM [facility] 300 Work Phone: Start: 10-28-2021 [facility] Provider: Manoj Ojeda, Status: Pen, Time: 11:00 AM [facility], Provider: Manoj Ojeda, Status: Pen, Time: 11:00 AM [facility] Work Phone: Start: 10-10-2021 Influenza vaccination [facility] Start: 09-27-2021 NPV, Provider: Manoj Ojeda, Status: Pen, Time: 9:30 AM NPV, Provider: Maonj Ojeda, Status: Pen, Time: 9:30 AM [facility] Work Phone: Start: 07-29-2021 End: 07-29-2021 Patient encounter procedure 07/29/2021 Procedure visit Neurology Rosa Isela Lanza MD [address] [place] [address] Sohan Christopher MD [address] [facility] Start: 02-06-2021 COVID-19 Vaccine (3 - Booster for Pfizer series) COVID-19 Vaccine (3 - Booster for Pfizer series) [facility] Start: 02-06-2021 COVID-19 Vaccine (3 - Pfizer series) COVID-19 Vaccine (3 - Pfizer series) [facility] Start: 12-14-2020 End: 12-27-2020 VL DUP LOWER EXTREMITY VENOUS BILATERAL VL DUP LOWER EXTREMITY VENOUS BILATERAL Imaging STAT Leg swelling Rash Expected: 12/14/2020, Expires: 12/27/2020 [facility] Work Phone: Comment on above: Expected: 12/14/2020 , Expires: 12/27/2020 Start: 10-10-2020 Influenza vaccination Flu vaccine (# 1) [facility] Work Phone: Start: 08-18-2019 IPV Vaccines (3 of 3 - Adult catch-up series) IPV Vaccines (3 of 3 - Adult catch-up series) [facility] Start: 05-25-2018 DTaP/Tdap/Td vaccine (2 - Td or Tdap) DTaP/Tdap/Td vaccine (2 - Td or Tdap) [facility] Work Phone: Start: 10-10-2017 Influenza vaccination INFLUENZA VACC INE (#1) [facility] Work Phone: Start: 09-25-2013 Screening for malign ant neoplasm of cervix [facility] Start: 01-09-2013 MMR Vaccines (1 of 1 - Standard series) MMR Vaccines (1 of 1 - Standard series) [facility] Start: 01-09-2013 Varicella vaccination Varicell a Vaccines (1 of 2 - 13+ 2-dose series) [facility] Start: 01-09-2013 Varicella vaccine (1 of 2 - 2-dose childhood series) Varicella vaccine (1 of 2 - 2-dose childhood series) [facility] Work Phone: Start: 11-25-2008 MMR Vaccines (1 of 1 - Standard series) MMR Vaccines (1 of 1 - Standard series) [facility] Start: 11-25-2008 Varicella vaccination Varicell a Vaccines (1 of 2 - 13+ 2-dose series) [facility] Start: 09-25-2005 DTaP/Tdap/Td Vaccine s (1 - Tdap) DTaP/Tdap/Td Vaccines (1 - Tdap) [facility] Start: 09-25-2004 Screening for malign ant neoplasm of cervix [facility] Start: 09-25-2002 Hepatitis B Vaccines (1 of 3 - 19+ 3-dose series) Hepatitis B Vaccines (1 of 3 - 19+ 3-dose series) [facility] Start: 09-25-2002 Third diphtheria, tetanus and acellular pertussis (DTaP) vaccination TDAP (ADULT) [facility] Work Phone: Start: 09-25-2001 Hepatitis C screening Hepatitis C Sc reening [facility] Start: 09-25-2001 Tetanus vaccination TETANUS [facility] Work Phone: Start: 09-25-1998 HIV screening [facility] Start: 09-25-1996 HIV screening HIV SCREENING DISCUSSION [facility] Work Phone: Start: 09-25-1996 Varicella vaccination Varicell a Vaccines (1 of 2 - 13+ 2-dose series) [facility] Start: 1995 COVID-19 Vaccine (1) COVID-19 Vaccin e (1) [facility] Work Phone: Start: 1995 Depression screening using PHQ-9 (Patient Health Questionnaire 9) score [facility] Start: 09-25-1988 COVID-19 Vaccine (1) COVID-19 Vaccin e (1) [facility] Start: 09-25-1986 History and physical examination, annual for health maintenance Wellness Visit [facility] Start: 09-25-1984 MMR Vaccines (1 of 1 - Standard series) MMR Vaccines (1 of 1 - Standard series) [facility] Start: 09-25-1984 Varicella vaccination Varicell a Vaccines (1 of 2 - 2-dose childhood series) [facility] Start: 03-28-1984 COVID-19 Vaccine (#1) COVID-19 Vacci ne (#1) [facility] Start: 1983 Hepatitis B Vaccines (1 of 3 - 3-dose series) Hepatitis B Vaccines (1 of 3 - 3-dose series) [facility] Start: 1983 Hepatitis C screening Hepatitis C sc reen [facility] Work Phone: Start: 1983 HIV screening HIV Screening [facility] Start: 1983 Lipid panel Lipid Panel [facility] Start: 1983 Screening for malign ant neoplasm of cervix Pap Smear [facility] Start: 1983 Tetanus vaccination Tetanus: Every [address] [facility] Start: 1983 Thyroid stimulating hormone measurement TSH Level [facility] Start: 1983 Yearly Adult Physical Yearly Adult P hysical [facility] 17-Hydroxyprogestero ne [Mass/volume] in Serum or Plasma [facility] Work Phone: Patient Education ED Myalgias ED Viral Syndrome (Adult) [facility] Work Phone: Patient referral [facility] Work Phone: End: 06-02-2024 XR Elbow - bilateral 3 Views [facility] Work Phone: Comment on above: Once for 1 Occurrenc es starting 06/02/2024 until 06/02/2024 Immunizations Immunization Date Immunization Notes Care Provider Fa [facility] 11-22-2022 influenza virus vaccine, unspecified formulation Rosa Isela Lanza MD Work Phone: [facility] Work Phone: 11-10-2022 influenza virus vaccine, unspecified formulation Rosa Isela Lanza MD Work Phone: [facility] Work Phone: 11-26-2021 influenza virus vaccine, unspecified formulation Rosa Isela Lanza MD Work Phone: [facility] Work Phone: 12-17-2020 influenza, injectabl e, quadrivalent, preservative free Rosa Isela Lanza Work Phone: [facility] 205 DO Work Phone: 12-25-2019 influenza, injectabl e, quadrivalent, preservative free Rosa Isela Lanza Work Phone: [facility] 205 DO Work Phone: 02-17-2019 poliovirus vaccine, unspecified formulation Meir Farrell MD Work Phone: [facility] 11-26-2016 influenza, injectabl e, quadrivalent, preservative free Rosa Isela Lanza Work Phone: [facility] 205 DO Work Phone: 11-09-2014 influenza, seasonal, injectable Rosa Isela Lanza Work Phone: [facility] 205 DO Work Phone: Payers Date Payer Category Payer Self-pay [id number] 2022 [employer] ( and others) [id number] 2018 () [id number] 2018 [employer] ( and others) [id number] 2017 [employer] ( and others) [id number] 2017 Unknown 1983 Unknown [id number] 2.840.1.115525.3.579.2.356 1983 Unknown [id number] 2.840.1.234204.3.579.2.356 1983 Unknown [id number] 2.840.1.959423.3.579.2.356 1983 Unknown [id number] 2.16840.1.969893.3.579.2.356 1983 Unknown [id number] 2.16840.1.738629.3.579.2.356 1983 Unknown [id number] 2.840.1.825677.3.579.2.356 1983 Unknown [id number] 2.16.840.1.898206.3.579.2.1069 1983 Unknown [id number] 2.16.840.1.362510.3.579.2.1069 1983 Unknown [id number] 2.16.840.1.136577.3.579.2.903 1983 Unknown [id number] 2.840.1.972386.3.579.2. 1983 Unknown [id number] 2.840.1.865905.3.579.2. 1983 Unknown [id number] 2.840.1.039823.3.579.2.90 1983 Unknown [id number] 2.840.1.583664.3.579.2. 1983 Unknown [id number] 2.840.1.832944.3.579.2. 1983 Unknown [id number] 2.840.1.011875.3.579.2. 1983 Unknown [id number] 2.840.1.608876.3.579.2.3 1983 Unknown [id number] 2.840.1.665123.3.579.2.1244 1983 Unknown [id number] 2.840.1.784503.3.579.2.1243 1983 Unknown [id number] 2.840.1.037763.3.579.2.1243 1983 Unknown [id number] 2.840.1.147216.3.579.2.1243 1983 Unknown [id number] 2.840.1.871301.3.579.2.1243 1983 Unknown [id number] 2.16840.1.042764.3.579.2.1243 Unknown [id number] 2.16.840.1.829998.3.579.2.462 Unknown [id number] 2.16.840.1.150379.3.579.2.462 Social History Date Type Detail Facility Start: 03-16-2018 End: 09-15-2022 Tobacco smoking status NHIS Never smoker [facility] Work Phone: Start: 1985 Sex Assigned At Not on file [facility] Work Phone: Start: 12-13-2020 End: 09-15-2022 Tobacco use and exposure Never used [facility] Start: 12-13-2020 End: 08-03-2023 Alcohol intake Current non-drinker of alcohol (finding) [facility] Work Phone: Start: 08-30-2018 History SDOH Education 13 [facility] Work Phone: Start: 08-30-2018 History SDOH Financial 5 [facility] Work Phone: Start: 08-30-2018 History SDOH Food Worry 1 [facility] Work Phone: Start: 08-30-2018 History SDOH Transpo rt Med 2 [facility] Work Phone: Start: 01-04-2022 End: 06-02-2024 Exposure to SARS-CoV-2 (event) Not sure [facility] Start: 01-28-2022 End: 06-02-2024 Never a smoker Never a smoker [facility] 205 DO Work Phone: Start: 01-08-2022 Tobacco smoking stat us NHIS Tobacco smoking consumption unknown [facility] Start: 01-14-2022 End: 08-14-2022 Alcohol intake Lifetime non-drinker (finding) [facility] Start: 1985 Sex Assigned At Female [facility] Start: 01-28-2022 End: 06-02-2024 Tobacco use panel [facility] Start: 09-15-2022 End: 06-02-2024 Alcohol intake Ex-drinker (finding) [facility] Work Phone: Start: 05-22-2024 Sex Female (finding) [facility] Mental Status Date Assessment Result Facility 05-22-2024 Cognitive function Level Of Cons ciousness Awake;Alert;Appropriate;Follow s Commands [facility] Work Phone: Clinical Notes 07-22-2021 to 06-02-2024 Assessment & Plan Note - Genie Rodas MD - 06/02/2024 9:54 AM EDTAssessment & Plan Note - Genie Rodas MD - 06/02/2024 9:54 AM EDTRhumza Rodas MD - 06/02/2024 9:00 AM EDT Note Date & Type Note Facility 06-02-2024 Evaluation + Plan note Associated Problem(s): Bilateral elbow joint pain Assessment: Bilateral elbow pain. Plan: Relative rest Avoid push-ups. We can send a note stating she should not be required to do her push-up testing for at least 6 months. Physical therapy for gentle range of motion and strengthening. Voltaren gel use as directed. Consider MRI scanning if she does not make bass progress. [facility] Work Phone: 06-02-2024 Miscellaneous Notes Associated Problem(s): Bilateral elbow joint pain Assessment: Bilateral elbow pain. Plan: Relative rest Avoid push-ups. We can send a note stating she should not be required to do her push-up testing for at least 6 months. Physical therapy for gentle range of motion and strengthening. Voltaren gel use as directed. Consider MRI scanning if she does not make bass progress. documented in this encounter [facility] Work Phone: 06-02-2024 History of Present illness Narrative Assessment/Plan Encounter Diagnoses: Bilateral elbow joint pain Bilateral elbow joint pain Assessment: Bilateral elbow pain. Plan: Relative rest Avoid push-ups. We can send a note stating she should not be required to do her push-up testing for at least 6 months. Physical therapy for gentle range of motion and strengthening. Voltaren gel use as directed. Consider MRI scanning if she does not make bass progress. Subjective Patient ID: Juan Jose Bowers is a 38 y.o. female. Chief Complaint: Pain of the Right Elbow (New Problem) and Pain of the Left Elbow (New Problem) Last Surgery: No surgery found Last Surgery Date: No surgery found HPI 38-year-old female who works in the . 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 She states that she has moved several times in the last year and did a lot of heavy lifting and manipulating boxes and furniture. She believes this aggravated her elbows. For the last several months her elbows have been sore and tender and when she tries to do push-ups she cannot do more than 1 or 2 without having pain. Her past surgical history is significant for bilateral carpal tunnel release with Dr. Ojeda in 2021. OBJECTIVE: ORTHO EXAM Right elbow exam She is right-hand dominant. She demonstrates full range of motion with full extension and flexion to 140. She has full pronation and supination. She points globally about the elbow where she has her pain but specifically she points to the triceps and the anconeus area. Wrist extension against resistance third finger extension against resistance and flexion extension test were all negative for lateral epicondylitis. She did have some tenderness over the cubital tunnel with a positive Tinel's She was mildly tender over the lateral epicondyle and mildly tender over the common extensor origin but neither of these was dramatic. She has some tenderness over the triceps insertion and the seem worse than her lateral pain. She had some tenderness over the medial epicondyle but this seemed less involved than either the triceps insertion or the lateral epicondyle. Neurovascularly intact distally. She had no joint effusion. Strength testing was 5/5 for cook boat strength and flexion extension at the elbow. Left elbow exam She demonstrates full range of motion with full extension and flexion to 140. She has full pronation and supination. She points globally about the elbow where she has her pain but specifically she points to the triceps and the anconeus area. Wrist extension against resistance third finger extension against resistance and flexion extension test were all negative for lateral epicondylitis. She did have some tenderness over the cubital tunnel with a positive Tinel's She was mildly tender over the lateral epicondyle and mildly tender over the common extensor origin but neither of these was dramatic. She has some tenderness over the triceps insertion and the seem worse than her lateral pain. She had some tenderness over the medial epicondyle but this seemed less involved than either the triceps insertion or the lateral epicondyle. Neurovascularly intact distally. She had no joint effusion. Strength testing was 5/5 for cook boat strength and flexion extension at the elbow. IMAGE RESULTS: Point of Care Ultrasound These images are not reportable by radiology and will not be interpreted by Radiologists. ULTRASOUND Site: Left elbow Indication: ELBOW PAIN Technique: B-Mode Ultrasound Examination performed using 8-13 MHz linear transducer with [employer] Software STUDY TYPE: 1. ULTRASOUND EXTREMITY INCLUDING BUT NOT LIMITED TO ELBOW MUSCLE, TENDONS, LIGAMENTS, FATTY TISSUES, SUBCUTANEOUS TISSUES AND OTHER SOFT TISSUE STRUCTURES SUCH ABSCESSES OR FREE FLUID ACCUMULATION WITHIN THE PRIMARY JOINT WELL ADJACENT JOINTS. 2. REAL TIME WITH IMAGE DOCUMENTATION 3. NON-VASCULAR 4. COMPLETE STUDY WHICH INCLUDES A THOROUGH EVALUATION OF THE ELBOW MUSCLE, TENDONS, LIGAMENTS, FATTY TISSUES, SUBCUTANEOUS TISSUES AND OTHER SOFT TISSUE STRUCTURES SUCH ABSCESSES OR FREE FLUID ACCUMULATION WITHIN THE PRIMARY JOINT WELL ADJACENT JOINTS. Live ultrasound was performed of the patient s ELBOW and PERMANENTLY documented. This is a thorough and complete evaluation of a specific anatomic region specifically the ELBOW. PERMANENT Image documentation was performed. This is the complete and final ultrasound report of the patient's ELBOW. The patient was positioned in order to optimize the ultrasound evaluation of the ELBOW. Ultrasound gel was used as a conductive medium in order to both transmit and receive ultrasonic signals that characterize the soft tissues. . I personally performed the ultrasound and reviewed the findings. These show: Findings: ELBOW Geri-articular evaluation: Live ultrasound was performed of the patient's ELBOW that shows a normal and intact appearance of the biceps/brachialis tendon. The triceps tendon shows a normal and intact appearance. The lateral epicondylar areas and tendon attachments show normal sonographic configuration. The medial epicondylar areas and tendon attachments show normal sonographic configuration. The olecranon bursa appears normal. Joint Evaluation: The radial head and neck show no bony abnormality or fracture. The olecranon shows no bony abnormality or fracture. No joint effusion is seen. In particular she had no effusion noted. She had no tendinosis seen in either the triceps insertion or the lateral epicondyle or the medial epicondyle. Site: Right elbow Indication: ELBOW PAIN Technique: B-Mode Ultrasound Examination performed using 8-13 MHz linear transducer with [employer] STUDY TYPE: 1. ULTRASOUND EXTREMITY INCLUDING BUT NOT LIMITED TO ELBOW MUSCLE, TENDONS, LIGAMENTS, FATTY TISSUES, SUBCUTANEOUS TISSUES AND OTHER SOFT TISSUE STRUCTURES SUCH ABSCESSES OR FREE FLUID ACCUMULATION WITHIN THE PRIMARY JOINT WELL ADJACENT JOINTS. 2. REAL TIME WITH IMAGE DOCUMENTATION 3. NON-VASCULAR 4. COMPLETE STUDY WHICH INCLUDES A THOROUGH EVALUATION OF THE ELBOW MUSCLE, TENDONS, LIGAMENTS, FATTY TISSUES, SUBCUTANEOUS TISSUES AND OTHER SOFT TISSUE STRUCTURES SUCH ABSCESSES OR FREE FLUID ACCUMULATION WITHIN THE PRIMARY JOINT WELL ADJACENT JOINTS. Live ultrasound was performed of the patient s ELBOW and PERMANENTLY documented. This is a thorough and complete evaluation of a specific anatomic region specifically the ELBOW. PERMANENT Image documentation was performed. This is the complete and final ultrasound report of the patient's ELBOW. The patient was positioned in order to optimize the ultrasound evaluation of the ELBOW. Ultrasound gel was used as a conductive medium in order to both transmit and receive ultrasonic signals that characterize the soft tissues. . I personally performed the ultrasound and reviewed the findings. These show: Findings: ELBOW Geri-articular evaluation: Live ultrasound was performed of the patient's ELBOW that shows a normal and intact appearance of the biceps/brachialis tendon. The triceps tendon shows a normal and intact appearance. The lateral epicondylar areas and tendon attachments show normal sonographic configuration. The medial epicondylar areas and tendon attachments show normal sonographic configuration. The olecranon bursa appears normal. Joint Evaluation: The radial head and neck show no bony abnormality or fracture. The olecranon shows no bony abnormality or fracture. No joint effusion is seen. In particular I saw no tendinosis at the triceps insertion or lateral or medial epicondyles. Nor did I see an effusion. Procedures Orders Placed This Encounter XR elbow 3+ views bilateral Point of Care Ultrasound documented in this encounter [facility] Work Phone: 05-06-2024 History of Present illness Narrative Still having elbow pain Subjective Juan Jose Bowers is a 38 y.o. female who presents for Elbow Pain. HPI Bilateral elbow pain persists, see previous notes. Right elbow is medial, left elbow is bilateral. Prednisone helped, symptoms recurred once done. She did have some irregular menstrual bleeding with the prednisone. 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 Wore the braces, helped some, not significantly. Discussed occuptional therapy as an option and or ortho eval. As is a potential issue with her work requirements we opted to start with ortho eval. (Symptoms not work related, but make requirements of job more difficult) Review of Systems All other systems reviewed and are negative. . No Known Allergies Current Outpatient Medications on File Prior to Visit Medication Sig Dispense Refill AdderalL 10 mg tablet Take by mouth. Adderall XR 20 mg 24 hr capsule Take by mouth. cetirizine (ZyrTEC) 10 mg tablet Take 1 tablet (10 mg) by mouth once daily. 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 [DISCONTINUED] predniSONE (Deltasone) 10 mg tablet 4 tabs daily for 3 days, 3 tabs daily for 3 days, 2 tabs daily for 3 days, 1 tab daily for 3 days, then discontinue 30 tablet 0 No current facility-administered medications on file prior to visit. Patient Active Problem List Diagnosis ADD (attention deficit disorder) Objective Visit Vitals BP 124/72 (BP Location: Left arm, Patient Position: Sitting) Pulse 88 Physical Exam Vitals reviewed. Pulmonary: Effort: Pulmonary effort is normal. Skin: Coloration: Skin is not pale. Neurological: Mental Status: She is alert. Mental status is at baseline. Psychiatric: Mood and Affect: Mood normal. Assessment/Plan Problem List Items Addressed This Visit None Visit Diagnoses Bilateral elbow joint pain - Primary Relevant Medications meloxicam (Mobic) 15 mg tablet Other Relevant Orders Referral to Orthopedics and Sports Medicine Side effects discussed, call concerns. Rosa Isela Lanza MD documented in this encounter [facility] Work Phone: 04-01-2024 History of Present illness Narrative Bilateral elbow pain x 6 months denies any specific trauma but has done heavy lifting in the past Subjective Juan Jose Bowers is a 38 y.o. female who presents for Elbow Pain. HPI Bilateral elbow pain for at least six months. This fall they moved and she did a lot of lifting, more than typical. Has had bilateral elbow pain with most movements of elbows since then. 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 Pain is mainly laterally. No swelling that she can tell. Review of Systems All other systems reviewed and are negative. . No Known Allergies Current Outpatient Medications on File Prior to Visit Medication Sig Dispense Refill AdderalL 10 mg tablet Take by mouth. Adderall XR 20 mg 24 hr capsule Take by mouth. cetirizine (ZyrTEC) 10 mg tablet Take 1 tablet (10 mg) by mouth once daily. 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 No current facility-administered medications on file prior to visit. Patient Active Problem List Diagnosis ADD (attention deficit disorder) Objective Visit Vitals BP 124/74 (BP Location: Left arm, Patient Position: Sitting) Pulse 76 Physical Exam Vitals reviewed. Constitutional: Appearance: She is normal weight. Pulmonary: Effort: Pulmonary effort is normal. Musculoskeletal: Comments: FROM of both elbows, no swelling, pain with extension of hand and third digit against resistance. Neurological: Mental Status: She is alert. Assessment/Plan Problem List Items Addressed This Visit None Visit Diagnoses Bilateral elbow joint pain - Primary Relevant Medications predniSONE (Deltasone) 10 mg tablet Recommend bilateral golfer/tennis elbow braces. Call if not improving. Side effects discussed. Rosa Isela Lanza MD documented in this encounter [facility] Work Phone: 08-25-2023 History of Present illness Narrative Rash on arms and torso x 2-3 days; spreading; does not itch Subjective Juan Jose Bowers is a 37 y.o. female who presents for Rash. Rash Here with rash for a few days. Was working outside but does not get typically poison kamaljit. Does not itch. Started with arms, now on abdomen. Not on ankles , not between fingers. No hot tub. Review of Systems Skin: Positive for rash. All other systems reviewed and are negative. . Objective Visit Vitals BP 120/70 (BP Location: Left arm, Patient Position: Sitting) Pulse 76 Physical Exam Vitals reviewed. HENT: Head: Normocephalic. Skin: Comments: Diffuse maculopapular rash arms, abdomen, no burrows, nothing between fingers. Neurological: Mental Status: She is alert. Assessment/Plan Problem List Items Addressed This Visit None Visit Diagnoses Rash and nonspecific skin eruption - Primary Relevant Medications methylPREDNISolone (Medrol Dospak) 4 mg tablets Trial of medrol, side effects discussed, call concerns. Rosa Isela Lanza MD documented in this encounter [facility] Work Phone: 08-03-2023 Emergency department Note EMERGENCY DEPARTMENT ENCOUNTER Pt Name: Juan Jose Bowers Birthdate 1985 Date of evaluation: 08/03/2023 ED Provider: Meir Farrell MD CHIEF COMPLAINT Chief Complaint Patient presents with Ankle Pain Right History from patient HISTORY OF PRESENT ILLNESS (Location/Symptom, Timing/Onset, Context/Setting, Quality, Duration, Modifying Factors, Severity) Note limiting factors. I wore appropriate PPE for the entirety of this encounter. HPI Juan Jose Bowers is a 37 y.o. who presents to the emergency department complaining of right ankle pain. Patient was working in the yard yesterday when a tree branch hit her on the medial malleolus. No previous injury. No other injury. No abuse or self injury. She is able to walk on it but it hurts. Dull mild aching pain worse to the touch or with movement. No radiation. Rested and put ice and elevated overnight. With nonresolution came to the emergency department today for x-ray. Tetanus immunizations up-to-date Nursing Notes were reviewed. Limitations to history: None Outside historians: None REVIEW OF SYSTEMS Review of Systems Constitutional: Negative for fever. Eyes: Negative for visual disturbance. Respiratory: Negative for shortness of breath. Cardiovascular: Negative for chest pain. Gastrointestinal: Negative for abdominal pain. Genitourinary: Negative for difficulty urinating. Musculoskeletal: Positive for arthralgias and gait problem. Negative for back pain, joint swelling, myalgias, neck pain and neck stiffness. Skin: Negative for rash. Neurological: Negative for headaches. Psychiatric/Behavioral: Negative for self-injury. Pertinent positives and negatives as per HPI PAST MEDICAL HISTORY Past Medical History: Diagnosis Date ADHD SURGICAL HISTORY History reviewed. No pertinent surgical history. CURRENT MEDICATIONS Previous Medications AMPHETAMINE-DEXTROAMPHETAMINE XR (ADDERALL XR) 20 MG 24 HR CAPSULE THYROID (RIDE ATTENDANT THYROID) 60 MG TABLET ALLERGIES Patient has no known allergies. FAMILY HISTORY Family History Problem Relation Name Age of Onset ADD / ADHD Sister Other (00910) Mother attention disorder ADD / ADHD Sister SOCIAL HISTORY Social History Socioeconomic History Marital status: Tobacco Use Smoking status: Never Smokeless tobacco: Never Vaping Use Vaping status: Never Used Substance and Sexual Activity Alcohol use: No Drug use: No Social Determinants of Health Financial Resource Strain: Low Risk (08/30/2018) Received from [facility] Overall Financial Resource Strain (CARDIA) Difficulty of Paying Living Expenses: Not hard at all Food Insecurity: No Food Insecurity (08/30/2018) Received from [facility] Hunger Vital Sign Worried About Running Out of Food in the Last Year: Never true Ran Out of Food in the Last Year: Never true Transportation Needs: No Transportation Needs (08/30/2018) [facility] Lack of Transportation (Medical): No Lack of Transportation (Non-Medical): No SCREENINGS PHYSICAL EXAM ED Triage Vitals [08/03/23 1010] Temp Heart Rate Resp BP 36.3 C (97.3 F) 86 14 125/75 SpO2 Temp Source Heart Rate Source Patient Position 100 % Oral Monitor Sitting BP Location FiO2 (%) Right arm -- Physical Exam Constitutional: Appearance: Normal appearance. HENT: Head: Normocephalic and atraumatic. Eyes: Extraocular Movements: Extraocular movements intact. Pupils: Pupils are equal, round, and reactive to light. Musculoskeletal: General: Normal range of motion. Cervical back: Normal range of motion. Skin: General: Skin is warm and dry. Capillary Refill: Capillary refill takes less than 2 seconds. Neurological: General: No focal deficit present. Mental Status: She is alert. Ambulatory Not febrile not toxic Right ankle -2 cm abrasion over the medial malleolus without evidence of contamination erythema or drainage, mild tenderness medial malleolus, joint stable, no effusion, full range of motion, distal neurovascular intact, no tenderness lateral malleolus fifth metatarsal or proximal fibula DIAGNOSTIC RESULTS RADIOLOGY (Per Emergency Physician): Right ankle x-ray -no fracture or dislocation Interpretation per the Radiologist below, if available at the time of this note: XR ankle 3+ views right Final Result No evidence for acute fracture or dislocation. Plantar calcaneal heel spur Report Dictated on Electronically Signed By: Manoj Rivas MD Electronically Signed Date/Time: 08/03/2023 10:47 AM EDT EMERGENCY DEPARTMENT COURSE and DIFFERENTIAL DIAGNOSIS/MDM: Vitals: Vitals: 08/03/23 1010 BP: 125/75 BP Location: Right arm Patient Position: Sitting Pulse: 86 Resp: 14 Temp: 36.3 C (97.3 F) TempSrc: Oral SpO2: 100% Weight: 70.3 kg (155 lb) Medications - No data to display Medical Decision Making and ED Course The patient presented with a chief complaint of right ankle pain. The differential diagnosis associated with this patient's presentation includes contusion fracture dislocationsprain. Our workup consisted of ordering/reviewing right ankle x-ray which shows no evidence of fracture or dislocation. By history there is no evidence of abuse or self injury. Most likely a contusion related to the tree limb. She also has an abrasion. Wound care instruction reviewed. Discussed symptomatic treatment including Ortho boot Aircast or Nolberto wrap and patient elects Nolberto wrap which she has at home. She agrees with symptomatic treatment and outpatient follow-up. Independent test interpretation by me: Right ankle x-ray Social determinants of health affecting care: Serves in the Consideration of hospitalization or de-escalation of care: Ambulatory with no evidence of fracture dislocation does not meet criteria for hospitalization for isolated limb injury REVAL: 10:58 AM All data now available and reviewed with patient. FINAL IMPRESSION 1. Contusion of right ankle, initial encounter Right ankle abrasion DISPOSITION Discharge 08/03/2023 11:00:31 AM PATIENT REFERRED TO: Alex Katz DO [address] [facility] [id number] as previously scheduled DISCHARGE MEDICATIONS: New Prescriptions No medications on file (Comment: Please note this report has been produced using speech recognition software and may contain errors related to that system including errors in grammar, punctuation, and spelling, as well as words and phrases that may be inappropriate. If there are any questions or concerns please feel free to contact the dictating provider for clarification.) Meir Farrell MD (electronically signed) Emergency Medicine Provider Meir Farrell MD 08/03/23 1131 Patient arrived with steady gait to room 3. Patient states she was cutting down tree limb yesterday when it fell on her right ankle. Patient has abrasion on right ankle with some redness. Patient endorses limited ROM with right foot but is able to bear weight. Last dose of ibuprofen this AM. documented in this encounter [facility] 08-03-2023 Emergency department Triage note Patient arrived with steady gait to room 3. Patient states she was cutting down tree limb yesterday when it fell on her right ankle. Patient has abrasion on right ankle with some redness. Patient endorses limited ROM with right foot but is able to bear weight. Last dose of ibuprofen this AM. [facility] 08-03-2023 Physician Emergency department Note EMERGENCY DEPARTMENT ENCOUNTER Pt Name: Juan Jose Bowers Birthdate 1985 Date of evaluation: 08/03/2023 ED Provider: Meir Farrell MD CHIEF COMPLAINT Chief Complaint Patient presents with Ankle Pain Right History from patient HISTORY OF PRESENT ILLNESS (Location/Symptom, Timing/Onset, Context/Setting, Quality, Duration, Modifying Factors, Severity) Note limiting factors. I wore appropriate PPE for the entirety of this encounter. HPI Juan Jose Bowers is a 37 y.o. who presents to the emergency department complaining of right ankle pain. Patient was working in the yard yesterday when a tree branch hit her on the medial malleolus. No previous injury. No other injury. No abuse or self injury. She is able to walk on it but it hurts. Dull mild aching pain worse to the touch or with movement. No radiation. Rested and put ice and elevated overnight. With nonresolution came to the emergency department today for x-ray. Tetanus immunizations up-to-date Nursing Notes were reviewed. Limitations to history: None Outside historians: None REVIEW OF SYSTEMS Review of Systems Constitutional: Negative for fever. Eyes: Negative for visual disturbance. Respiratory: Negative for shortness of breath. Cardiovascular: Negative for chest pain. Gastrointestinal: Negative for abdominal pain. Genitourinary: Negative for difficulty urinating. Musculoskeletal: Positive for arthralgias and gait problem. Negative for back pain, joint swelling, myalgias, neck pain and neck stiffness. Skin: Negative for rash. Neurological: Negative for headaches. Psychiatric/Behavioral: Negative for self-injury. Pertinent positives and negatives as per HPI PAST MEDICAL HISTORY Past Medical History: Diagnosis Date ADHD SURGICAL HISTORY History reviewed. No pertinent surgical history. CURRENT MEDICATIONS Previous Medications AMPHETAMINE-DEXTROAMPHETAMINE XR (ADDERALL XR) 20 MG 24 HR CAPSULE THYROID (RIDE ATTENDANT THYROID) 60 MG TABLET ALLERGIES Patient has no known allergies. FAMILY HISTORY Family History Problem Relation Name Age of Onset ADD / ADHD Sister Other ([id number]) Mother attention disorder ADD / ADHD Sister SOCIAL HISTORY Social History Socioeconomic History Marital status: Tobacco Use Smoking status: Never Smokeless tobacco: Never Vaping Use Vaping status: Never Used Substance and Sexual Activity Alcohol use: No Drug use: No Social Determinants of Health Financial Resource Strain: Low Risk (08/30/2018) Received from [facility] Overall Financial Resource Strain (CARDIA) Difficulty of Paying Living Expenses: Not hard at all Food Insecurity: No Food Insecurity (08/30/2018) Received from [facility] Hunger Vital Sign Worried About Running Out of Food in the Last Year: Never true Ran Out of Food in the Last Year: Never true Transportation Needs: No Transportation Needs (08/30/2018) Received from [facility] [place] - Transportation Lack of Transportation (Medical): No Lack of Transportation (Non-Medical): No SCREENINGS PHYSICAL EXAM ED Triage Vitals [08/03/23 1010] Temp Heart Rate Resp BP 36.3 C (97.3 F) 86 14 125/75 SpO2 Temp Source Heart Rate Source Patient Position 100 % Oral Monitor Sitting BP Location FiO2 (%) Right arm -- Physical Exam Constitutional: Appearance: Normal appearance. HENT: Head: Normocephalic and atraumatic. Eyes: Extraocular Movements: Extraocular movements intact. Pupils: Pupils are equal, round, and reactive to light. Musculoskeletal: General: Normal range of motion. Cervical back: Normal range of motion. Skin: General: Skin is warm and dry. Capillary Refill: Capillary refill takes less than 2 seconds. Neurological: General: No focal deficit present. Mental Status: She is alert. Ambulatory Not febrile not toxic Right ankle -2 cm abrasion over the medial malleolus without evidence of contamination erythema or drainage, mild tenderness medial malleolus, joint stable, no effusion, full range of motion, distal neurovascular intact, no tenderness lateral malleolus fifth metatarsal or proximal fibula DIAGNOSTIC RESULTS RADIOLOGY (Per Emergency Physician): Right ankle x-ray -no fracture or dislocation Interpretation per the Radiologist below, if available at the time of this note: XR ankle 3+ views right Final Result No evidence for acute fracture or dislocation. Plantar calcaneal heel spur Report Dictated on Electronically Signed By: Manoj Rivas MD Electronically Signed Date/Time: 08/03/2023 10:47 AM EDT EMERGENCY DEPARTMENT COURSE and DIFFERENTIAL DIAGNOSIS/MDM: Vitals: Vitals: 08/03/23 1010 BP: 125/75 BP Location: Right arm Patient Position: Sitting Pulse: 86 Resp: 14 Temp: 36.3 C (97.3 F) TempSrc: Oral SpO2: 100% Weight: 70.3 kg (155 lb) Medications - No data to display Medical Decision Making and ED Course The patient presented with a chief complaint of right ankle pain. The differential diagnosis associated with this patient's presentation includes contusion fracture dislocationsprain. Our workup consisted of ordering/reviewing right ankle x-ray which shows no evidence of fracture or dislocation. By history there is no evidence of abuse or self injury. Most likely a contusion related to the tree limb. She also has an abrasion. Wound care instruction reviewed. Discussed symptomatic treatment including Ortho boot Aircast or Nolberto wrap and patient elects Nolberto wrap which she has at home. She agrees with symptomatic treatment and outpatient follow-up. Independent test interpretation by me: Right ankle x-ray Social determinants of health affecting care: Serves in the Consideration of hospitalization or de-escalation of care: Ambulatory with no evidence of fracture dislocation does not meet criteria for hospitalization for isolated limb injury REVAL: 10:58 AM All data now available and reviewed with patient. FINAL IMPRESSION 1. Contusion of right ankle, initial encounter Right ankle abrasion DISPOSITION Discharge 08/03/2023 11:00:31 AM PATIENT REFERRED TO: Alex Katz DO [address] [place] [phone] as previously scheduled DISCHARGE MEDICATIONS: New Prescriptions No medications on file (Comment: Please note this report has been produced using speech recognition software and may contain errors related to that system including errors in grammar, punctuation, and spelling, as well as words and phrases that may be inappropriate. If there are any questions or concerns please feel free to contact the dictating provider for clarification.) Meir Farrell MD (electronically signed) Emergency Medicine Provider Meir Farrell MD 08/03/23 1131 [facility] 09-15-2022 History of Present illness Narrative Would like to get referral to dermatology; has some areas of concerns Subjective Juan Jose Bowers is a 36 y.o. female who presents for Referral to dermatology. HPI Patricia presents with skin changes. Has several areas on back hard for her to monitor, family history unknown. Has mole on left thigh has been growing and changing. Review of Systems All other systems reviewed and are negative. . Objective Visit Vitals BP 118/64 (BP Location: Left arm, Patient Position: Sitting) Pulse 76 Physical Exam Vitals reviewed. HENT: Head: Normocephalic. Skin: Comments: Left thigh 3 mm irregular raised white lesion Neurological: Mental Status: She is alert. Assessment/Plan Problem List Items Addressed This Visit None Visit Diagnoses Atypical nevus - Primary Relevant Orders Referral to Dermatology Rosa Isela Lanza MD documented in this encounter [facility] Work Phone: 08-14-2022 History of Present illness Narrative Images from the original note were not included. Established Patient Visit DULCE MARIA Zuniga DPM Patient Name: Juan Jose Bowers. . Date of : 1985, 36 y.o.. Gender: female. Subjective: Patient is a pleasant 36-year-old female who presents to clinic today for follow-up of right foot Planter fasciitis. Patient overall doing exceptionally well and has greater than 90% resolution of pain. Patient continues to take Mobic and wear her inserts. She is diligently doing stretching exercises. Patient is very content with the conservative treatment set forth for her patient denies any current fever, chills, nausea, vomit, chest pain or shortness of breath. Patient is no other pedal complaints at this time. Physical Examination: BP 118/76 (BP Location: Right arm, Patient Position: Sitting, BP Cuff Size: Adult) Pulse 76 Temp 98.4 F (36.9 C) (Infrared) General Appearance: Alert, cooperative, no distress, appears stated age. Podiatric Exam Vascular: DP and PT pulses are easily palpable, 2/4. Capillary refill time is brisk to distal digits, less than 3 seconds. Skin temperature is warm to warm from proximal tibial tuberosity to distal digits. No dependent rubor. Neurological: Epicritic and protopathic sensation intact to bilateral lower extremities. Dermatologic: Quality of skin is supple. Nails 1-5 bilaterally are normotrophic. Webspaces 1-4 bilaterally are clean, dry and intact. No hyperkeratoses. No open lesions, rashes or subcutaneous nodules of note. Musculoskeletal: Bilateral foot and ankle overall rectus alignment. Muscle strength testing 5-5 all tested muscle groups. Ankle joint range of motion limited with knee extended and slightly increased with knee flexed. Intact subtalar joint midtarsal joint range of motion. No pain on palpation to medial calcaneal tubercle on the right and not on the left. Diagnoses: 1. Plantar fasciitis 2. Foot pain, right Imaging: Not indicated for today's visit. Assessment/Plan: Patient was seen and evaluated. Discussed all clinical and radiographic findings Educated patient on etiology and pathophysiology associated with Planter fasciitis. Discussed maintenance protocol Given patient is 90% better did offer continued Mobic and possible additional and final steroid injection today. Patient relates that she feels she is doing extremely well and is confident that this will resolve on its own should she keep doing the conservative treatment set forth for her. Discussed with her that stretching is the most important part of this. Mobic as needed Patient can follow-up as needed at this point. This note was partially created using voice recognition software and is inherently subject to errors including those of syntax and sound-alike substitutions which may escape proofreading. In such instances, original meaning may be extrapolated by contextual derivation. DULCE MARIA Zuniga DPM Podiatric Foot & Ankle Surgery documented in this encounter [facility] 07-08-2022 Note Addended by: DULCE MARIA MCLAIN on: 07/08/2022 02:25 PM Modules accepted: Orders [facility] 07-08-2022 Note Addended by: DULCE MARIA MCLAIN on: 07/08/2022 02:25 PM Modules accepted: Orders [facility] 07-08-2022 Note Addended by: DULCE MARIA MCLAIN on: 07/08/2022 02:25 PM Modules accepted: Orders [facility] 07-08-2022 Miscellaneous Notes Addended by: DULCE MARIA ZUNIGA on: 07/08/2022 02:25 PM Modules accepted: Orders documented in this encounter [facility] 07-08-2022 History of Present illness Narrative Images from the original note were not included. Established Patient Visit DULCE MARIA Zuniga DPM Patient Name: Juan Jose Bowers. . Date of : 1985, 36 y.o.. Gender: female. Subjective: Patient is a pleasant 36-year-old female who presents to clinic today for recurrent plantar fasciitis. Patient was seen by 1 my partners back in January and was given bilateral plantar fascial injections. Patient relates that she had significant relief. Patient did recently have a physical training assessment as she is in the [employer] and that assessment reaggravated her right foot. She does not wear inserts and wears sturdy lace up boots. When she is not boot she is in [place] shoes. She does not barefoot weight-bear at home anymore because it is too painful. Patient denies any current fever, chills, nausea, vomit, chest pain or shortness of breath. Patient is no other pedal complaints at this time. Physical Examination: BP 131/80 (BP Location: Right arm, Patient Position: Sitting, BP Cuff Size: Adult) Pulse 82 Temp 98.3 F (36.8 C) (Infrared) General Appearance: Alert, cooperative, no distress, appears stated age. Podiatric Exam Vascular: DP and PT pulses are easily palpable, 2/4. Capillary refill time is brisk to distal digits, less than 3 seconds. Skin temperature is warm to warm from proximal tibial tuberosity to distal digits. No dependent rubor. Neurological: Epicritic and protopathic sensation intact to bilateral lower extremities. Dermatologic: Quality of skin is supple. Nails 1-5 bilaterally are normotrophic. Webspaces 1-4 bilaterally are clean, dry and intact. No hyperkeratoses. No open lesions, rashes or subcutaneous nodules of note. Musculoskeletal: Bilateral foot and ankle overall rectus alignment. Muscle strength testing 5-5 all tested muscle groups. Ankle joint range of motion limited with knee extended and slightly increased with knee flexed. Intact subtalar joint midtarsal joint range of motion. Pain on palpation to medial calcaneal tubercle on the right and not on the left. Does right up to the medial face of the calcaneus ever so slightly. Does not carry out into the medial longitudinal arch. Diagnoses: 1. Plantar fasciitis 2. Heel spur, right 3. Foot pain, right Imagin views of the right foot reviewed today AP MO and lateral. No acute fracture or dislocation of note. Plantar calcaneal spur noted. Assessment/Plan: Patient was seen and evaluated. Discussed all clinical and radiographic findings Educated patient on etiology and pathophysiology associated with Planter fasciitis. Discussed plan of fasciitis protocol. Patient is elected for conservative treatment in the form of steroid injection, Mobic, aggressive stretching, well fitting shoes with power step inserts and no barefoot walking. Patient was consented and a one-to-one racemic mixture of Kenalog 40 mg and 0.5% Marcaine plain. This was injected to the right heel without incident. Patient tolerated well. Plantar fasciitis education and postinjection education dispensed. Patient to follow-up in 6 weeks time. Should she not be significantly improved may consider formal physical therapy at that time. This note was partially created using voice recognition software and is inherently subject to errors including those of syntax and sound-alike substitutions which may escape proofreading. In such instances, original meaning may be extrapolated by contextual derivation. DULCE MARIA Zuniga DPM Podiatric Foot & Ankle Surgery documented in this encounter [facility] 01-28-2022 History of Present illness Narrative Patient: Juan Jose Bowers Date of : 1985 (36 y.o.) PCP: Rosa Isela Lanza MD Procedures ASSESSMENT/PLAN: Juan Jose Bowers 36 y.o. female with history of plantar fasciitis of both feet continues. Plan: I injected both heels with 1 cc Kenalog and 1 cc 0.5% Marcaine plain. I also prescribed 1 pair of full-length functional orthotics. Patient was instructed to continue stretching and icing. Patient to reappoint in 1 month. Assessment & plan notes cannot be loaded without a specified hospital service. SUBJECTIVE: History Since Last Visit: Patient a 36-year-old female follows up for plantar fasciitis of both heels. Patient relates they are still sore she is only made about 25% improvement. The right heel is worse than the left. Review of Systems: Unremarkable OBJECTIVE: Physical Examination: Integument-skin is warm dry and supple bilateral feet Neuro-patient has no pain over the Baxters nerve or posterior tibial nerves of both feet Musculoskeletal-patient has pain on palpation of the medial and central bands of plantar fascial ligaments on both heels. Right is worse than left Vascular-DP PT pulses are palpable bilateral feet BP 132/79 (BP Location: Right arm, Patient Position: Sitting, BP Cuff Size: Adult) Pulse 81 Temp 97.7 F (36.5 C) (Infrared) Laboratory and Additional Data Reviewed: Reviewed:[id number]} XR Foot Right 3+ Views (Standard) X-rays 3 views right foot: Patient has the beginning of an inferior calcaneal heel spur XR Foot Left 3+ Views (Standard) X-rays 3 views left foot: Patient has the beginning of an inferior calcaneal heel spur documented in this encounter [facility] 01-14-2022 History of Present illness Narrative Patient Name: Juan Jose Bowers MR #: [id number] : 1985 Gender: female. Date of Consultation: 01/14/2022. Author: DENNYS Tomas Physicians: Rosa Isela Lanza MD (Family); No ref. provider found (Referring) History of Present Illness: Juan Jose Bowers is a 36 y.o. female who presents with painful plantar fasciitis of both feet. 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 Patient is tried some [id number] anti-inflammatories last 6 months without improvement Assessment and Plan: 1. 1. Foot pain, bilateral XR Foot Right 3+ Views (Standard) XR Foot Left 3+ Views (Standard) 2. Heel spur, right 3. Heel spur, left 4. Plantar fasciitis, bilateral Plan: Patient was seen and evaluated. I discussed the findings with the patient. Patient was given opportunity to ask questions. Patient elects to have the following treatment as follows: Prescribed dispensed 1 pair of [place] straps for both feet. Patient was instructed to pursue wearing some new balance crosstrainer type shoes. Patient was prescribed Medrol Dosepak I also asked patient to ice the arches and heels down with a frozen water bottle then the day. Reappoint in 2 weeks if not better may consider physical therapy or cortisone shot. Lower Extremity: Integumentary: Skin is warm dry and supple bilateral Musculoskeletal: Patient has pain on palpation of the medial and central bands of plantar fascial ligaments on both heels. Patient's right heel had more symptoms than the left. Patient had a very tight Achilles tendon and plantar fascia of both feet. Neurological: Patient had no pain over the Baxters nerve or posterior tibial nerve of both feet Vascular: DP PT pulses are palpable bilateral feet * No LDAs found * BP 121/72 (BP Location: Left arm, Patient Position: Sitting, BP Cuff Size: Adult) Pulse 76 Temp 97.9 F (36.6 C) (Infrared) Allergy Information: I have reviewed the patient's allergies. Patient has no known allergies. Home Medications: Current Outpatient Medications Medication Sig Dispense Refill dextroamphetamine-amphetamine (ADDERALL) 30 mg tablet Take 1 (one) tablet (30 mg total) by mouth daily . methylPREDNISolone (MEDROL DOSEPACK) 4 mg tablet Follow package directions . 21 tablet 0 No current facility-administered medications for this visit. Review of Systems: The following system(s) were reviewed and pertinent findings noted: Pertinent positives and negatives as mentioned above, otherwise full review of systems is negative unless mentioned below: Patient currently denies Nausea/Vomiting/Fever/Chills/Sh ortness of Breath/Chest Pain. Medical History: Past Medical History: Diagnosis Date ADHD . Surgical History: Past Surgical History: Procedure Laterality Date CARPAL TUNNEL RELEASE Bilateral 11/08/2021 . Social History: Social History Socioeconomic History Marital status: Tobacco Use Smoking status: Never Smokeless tobacco: Never Substance and Sexual Activity Alcohol use: Never Drug use: Never Family History: No family history on file. Electronically signed by the above physician 01/14/22 documented in this encounter [facility] 11-13-2021 Note PROCEDURE DETAILS Preoperative Diagnosis: Carpal tunnel syndrome, left upper limb, G56.02 Postoperative Diagnosis: Carpal tunnel syndrome, left upper limb, G56.02 Surgeon: Manoj Ojeda Resident/Fellow/Other Media Planner / Buyer: None of these were associated with this case Procedure: 1. L CTR Anesthesia: Manoj Tyson Estimated Blood Loss: 1ml Findings: as noted above Specimens(s) Collected: no, Complications: none Tourniquet Times: 7 minutes Patient Returned To/Condition: stable to pacu Operative Report: Indicationspatient presented to the outpatient orthopedic surgical office with numbness and tingling in the median nerve distribution patient tried multiple conservative measures including splints oral medication with no improvement of the symptoms the risk benefits alternatives and indications for treating carpal tunnels syndrome were discussed in detail. EMG evidence did suggest carpal tunnel syndrome as well as physical exam which was consistent with carpal tunnel syndrome surgical treatment injection and further splinting were discussed as well as the risks and benefits of continued nerve compression overall operative time. Patient did wish to proceed with surgical intervention. Written informed consent was at obtained after discussion of the risk benefits alternatives Description of procedurepatient was taken the preoperative holding area once again the risk benefits alternatives indications were discussed the operative site was marked agreed upon the patient was then taken to the operative room by nursing anesthesia staff. The patient was then placed on the operating table in the supine position all bony prominences well-padded and protected the arms extended onto a radiolucent arm board and a well-padded tourniquet was placed on the forearm. Operative timeout was undertaken identifying correct patient site and procedure all in agreement. Preoperative antibiotics were administered prior to incision the upper extremity was then prepped and draped in typical fashion. After prepping and draping Esmarch bandage used to exsanguinate the upper extremity tourniquet was inflated 200 mmHg. A longitudinal incision was made in the palm overlying the transverse carpal ligament. This was done using a 15 blade the subcutaneous tissue was bluntly dissected to the level of the palmar fascia with a 15 blade was then used to incise in line with the skin incision in the palmar fascia. Bipolar cautery was used to provide hemostasis in the wound edges. This exposed the transverse carpal ligament and the palmar stress palmaris brevis was noted mobilized radially and the transverse carpal ligament was incised sharply using a Henagar blade this exposed some of the contents of the canal and the proximal distal extents of the ligament were then released using blunt scissors under direct visualization after full release proximally and distally their contents of the carpal tunnel were evaluated there is an hourglass deformity indicative of compressive pathology. The radial leaflet was elevated in the radial border of the nerve as well as the recurrent motor branch were visualized. The wound was then copious irrigated with normal saline solution and the skin was closed with 4-0 Prolene in a horizontal mattress fashion. Xeroform 4 x 4 and a well-padded volar splint was placed on the forearm the patient was awakened from anesthesia transferred to [facility] taken to PACU in stable condition. Patient tolerated procedure without complication all the sponge counts were correct. Postoperative course patient will limit weightbearing on the upper extremity. Keep the splint on for 3 days at which point the patient can remove the splint and shower following postoperative instructions. Patient should limit activity and weightbearing through the hand but work on range of motion of the fingers. Given a short pain medicine prescription follow-up in 10 days for stitch removal Attestation: Note Completion: Attending AttestationI performed the procedure without a resident Electronic Signatures: Manoj Ojeda () (Signed 13-Nov-2021 14:27) Authored: Post-Operative Note, Chart Review, Note Completion Last Updated: 13-Nov-2021 14:27 by Manoj Ojeda () [facility] 11-13-2021 History of Present illness Narrative Patient is a pleasant 36-year-old female presenting for post operative evaluation of the left wrist. She is status post left carpal tunnel release performed on 11/13/2021. Patient is doing relatively well at this time post operatively. However, she reports she had drill this past weekend and notes she has become increasingly symptomatic following. She reports soreness and tenderness of the wrist, noting the tenderness to be quite severe today. She denies any numbness and/or tingling sensations at this time. She has redness about the surgical wound, as well as tenderness with palpation. [facility] [address] Work Phone: 11-13-2021 History of Present illness Narrative Patient is a pleasant 36-year-old female presenting for post operative evaluation of the left wrist. She is status post left carpal tunnel release performed on 11/13/2021. Patient is doing relatively well at this time post operatively. However, she reports she had drill this past weekend and notes she has become increasingly symptomatic following. She reports soreness and tenderness of the wrist, noting the tenderness to be quite severe today. She denies any numbness and/or tingling sensations at this time. She has redness about the surgical wound, as well as tenderness with palpation. [facility] [address] Work Phone: 11-13-2021 History of Present illness Narrative Patient is a pleasant 36-year-old female presenting today for 3 week post operative evaluation as she is status post open carpal tunnel release of the left wrist performed on 11/13/2021. Patient reports to be doing well at this time post operatively and has appreciated some slow improvement over time. She reports to be without any numbness or tingling sensations post operatively, but does report to have some lasting discomfort and a pinching sensation of the wrist. She reports soreness with activity and overuse, otherwise rates her pain at rest to be a 0 out of 10. She has continued the antibiotic. She has some scar tissue that she is doing scar massages and is hopeful for slow improvement with time. [facility] [address] Work Phone: 11-13-2021 Note History & Physical R eviewed: /Lactating: Are You no Are You Currently Breastfeedingno I have reviewed the History and Physical dated: 13-Nov-2021 History and Physical reviewed and relevant findings noted. Patient examined to review pertinent physical findings.: No significant changes Home Medications Reviewed: no changes noted Allergies Reviewed: no changes noted ERAS (Enhanced Recovery After Surgery): ERAS Patient: no Consent: COVID-19 Consent: COVID-19 Risk ConsentSurgeon has reviewed berry risks related to the risk of mat COVID-19 and if they contract COVID-19 what the risks are. Electronic Signatures: Manoj Ojeda) (Signed 13-Nov-2021 11:54) Authored: History & Physical Reviewed, ERAS, Consent, Note Completion Last Updated: 13-Nov-2021 11:54 by Manoj Ojeda) [facility] 10-28-2021 Note PROCEDURE DETAILS Preoperative Diagnosis: Carpal tunnel syndrome, right upper limb, G56.01 Postoperative Diagnosis: Carpal tunnel syndrome, right upper limb, G56.01 Surgeon: Manoj Ojeda Resident/Fellow/Other Media Planner / Buyer: None of these were associated with this case Procedure: 1. R CTR Anesthesia: Raghavendra Gibbs Estimated Blood Loss: 1 ml Findings: as noted above Specimens(s) Collected: no, Complications: none Tourniquet Times: 8 mninutes Patient Returned To/Condition: stable to pacu Operative Report: Indicationspatient presented to the outpatient orthopedic surgical office with numbness and tingling in the median nerve distribution patient tried multiple conservative measures including splints oral medication with no improvement of the symptoms the risk benefits alternatives and indications for treating carpal tunnels syndrome were discussed in detail. EMG evidence did suggest carpal tunnel syndrome as well as physical exam which was consistent with carpal tunnel syndrome surgical treatment injection and further splinting were discussed as well as the risks and benefits of continued nerve compression overall operative time. Patient did wish to proceed with surgical intervention. Written informed consent was at obtained after discussion of the risk benefits alternatives Description of procedurepatient was taken the preoperative holding area once again the risk benefits alternatives indications were discussed the operative site was marked agreed upon the patient was then taken to the operative room by nursing anesthesia staff. The patient was then placed on the operating table in the supine position all bony prominences well-padded and protected the arms extended onto a radiolucent arm board and a well-padded tourniquet was placed on the forearm. Operative timeout was undertaken identifying correct patient site and procedure all in agreement. Preoperative antibiotics were administered prior to incision the upper extremity was then prepped and draped in typical fashion. After prepping and draping Esmarch bandage used to exsanguinate the upper extremity tourniquet was inflated 200 mmHg. A longitudinal incision was made in the palm overlying the transverse carpal ligament. This was done using a 15 blade the subcutaneous tissue was bluntly dissected to the level of the palmar fascia with a 15 blade was then used to incise in line with the skin incision in the palmar fascia. Bipolar cautery was used to provide hemostasis in the wound edges. This exposed the transverse carpal ligament and the palmar stress palmaris brevis was noted mobilized radially and the transverse carpal ligament was incised sharply using a Henagar blade this exposed some of the contents of the canal and the proximal distal extents of the ligament were then released using blunt scissors under direct visualization after full release proximally and distally their contents of the carpal tunnel were evaluated there is an hourglass deformity indicative of compressive pathology. The radial leaflet was elevated in the radial border of the nerve as well as the recurrent motor branch were visualized. The wound was then copious irrigated with normal saline solution and the skin was closed with 4-0 Prolene in a horizontal mattress fashion. Xeroform 4 x 4 and a well-padded volar splint was placed on the forearm the patient was awakened from anesthesia transferred to [facility] taken to PACU in stable condition. Patient tolerated procedure without complication all the sponge counts were correct. Postoperative course patient will limit weightbearing on the upper extremity. Keep the splint on for 3 days at which point the patient can remove the splint and shower following postoperative instructions. Patient should limit activity and weightbearing through the hand but work on range of motion of the fingers. Given a short pain medicine prescription follow-up in 10 days for stitch removal Attestation: Note Completion: Attending AttestationI performed the procedure without a resident Electronic Signatures: Manoj Ojeda () (Signed 28-Oct-2021 12:25) Authored: Post-Operative Note, Chart Review, Note Completion Last Updated: 28-Oct-2021 12:25 by Manoj Ojeda () [facility] 10-28-2021 History of Present illness Narrative Patient is a pleasant 36-year-old female presenting today for post operative evaluation as she is status post open carpal tunnel release of the right wrist performed on 10/28/2021. Surgical stitches were removed in office today and the wound is healing well without signs of infection thus far. Patient reports to be doing relatively well at this time post operatively and states she feels her overall condition has improved. She denies any numbness and tingling sensations following surgery. She has tenderness about the hand, otherwise without significant pain. She does mention her other hand has become increasingly symptomatic with numbness due to compensating for her post-op condition. She states she feels prepared to pursue surgical intervention next week with regards to open carpal tunnel release of the left wrist. [facility] [address] Work Phone: 10-28-2021 History of Present illness Narrative Patient is a pleasant 36-year-old female presenting today for post operative evaluation as she is status post open carpal tunnel release of the right wrist performed on 10/28/2021. Surgical stitches were removed in office today and the wound is healing well without signs of infection thus far. Patient reports to be doing relatively well at this time post operatively and states she feels her overall condition has improved. She denies any numbness and tingling sensations following surgery. She has tenderness about the hand, otherwise without significant pain. She does mention her other hand has become increasingly symptomatic with numbness due to compensating for her post-op condition. She states she feels prepared to pursue surgical intervention next week with regards to open carpal tunnel release of the left wrist. [facility] 300 Work Phone: 10-28-2021 Note History of Present I llness: /Lactating: Are You no Are You Currently Breastfeedingno History Present Illness: Reason for surgery: carpal tunnel HPI: Patient has carpal tunnel syndrome wishes surgery failed more conservative measures Allergies: Allergies: No Known Allergies: Home Medication Review: Home Medications Reviewed: yes Impression/Procedure: Impression and Planned Procedure: Carpal tunnel syndrome, open carpal tunnel release ERAS (Enhanced Recovery After Surgery): ERAS Patient: no Physical Exam by System: Respiratory/Thorax: Patent airways, CTAB, normal breath sounds with good chest expansion, thorax symmetric Cardiovascular: Regular, rate and rhythm, no murmurs, 2+ equal pulses of the extremities, normal S 1and S 2 Consent: COVID-19 Consent: COVID-19 Risk ConsentSurgeon has reviewed berry risks related to the risk of mat COVID-19 and if they contract COVID-19 what the risks are. Electronic Signatures: Manoj Ojeda () (Signed 28-Oct-2021 10:02) Authored: History of Present Illness, Allergies, Home Medication Review, Impression/Procedure, ERAS, Physical Exam, Consent, Note Completion Last Updated: 28-Oct-2021 10:02 by Manoj Ojeda () [facility] 08-09-2021 History of Present illness Narrative Pt presents with a few concerns today.Periods, have always been slightly irregular ,heavy or light, longer or shorter, but states hasn't had one since August. Has done a home hcg test and was negative , had vasectomy. She has a cook vacuum kettle appt in a few weeks. Pap last year.Feels tired all the time. At times is sad bu not consistently so.Her sister had liver transplant from what she thinks was fatty liver.Her feet have been hurting for a year . Pain is intermittent, worse with standing, walking. Sometimes hurt at rest . wears boots. Pain is in heel, mid foot, arch or forefoot, it varies. Denies n/t. Tried various shoe inserts and they seemed to make pain worse. -[facility] Work Phone: 07-22-2021 History of Present illness Narrative Patient is a pleasant 36-year-old female presenting today for bilateral carpal tunnel syndrome as referred by her PCP Dr. Lanza. EMG performed on 07/22/2021. Patient reports she has been experiencing carpal tunnel syndrome for some years and she has constant numbness and tingling of the hands. Although both of her hands are symptomatic, she reports the right hand to be more symptomatic than the left. She has difficulty with lifting and grabbing objects, as well as fine motor skills. She has pain of the hands that radiates up in to the elbow. -[facility] 300 Work Phone: 07-22-2021 History of Present illness Narrative Patient is a pleasant 36-year-old female presenting today for bilateral carpal tunnel syndrome as referred by her PCP Dr. Lanza. EMG performed on 07/22/2021. Patient reports she has been experiencing carpal tunnel syndrome for some years and she has constant numbness and tingling of the hands. Although both of her hands are symptomatic, she reports the right hand to be more symptomatic than the left. She has difficulty with lifting and grabbing objects, as well as fine motor skills. She has pain of the hands that radiates up in to the elbow. [facility] 300 Work Phone: Evaluation note Diagnosis Leg swelling- Primary Swelling of limb Rash Rash and other nonspecific skin eruption documented in this encounter [facility] Work Phone: Evaluation note* Diagnosis Numbness and tingling of hand- [facility] Diagnosis Numbness and tingling of hand- Primary [facility]* Diagnosis Right foot pain- Primary Pain in soft tissues of limb [facility]* Diagnosis Foot pain, bilateral- Primary Heel spur, right Heel spur, left Plantar fasciitis, bilateral Foot pain, bilateral Foot pain, bilateral [facility]* Diagnosis Onset Date Resolution Status Irregular menstrual bleeding [facility] Work Phone: Evaluation note* Diagnosis Plantar fasciitis, bilateral- Primary [facility]* Diagnosis Plantar fasciitis- Primary Plantar fascial fibromatosis Heel spur, right Foot pain, right Pain in soft tissues of limb [facility]* Diagnosis Plantar fasciitis- Primary Plantar fascial fibromatosis Foot pain, right Pain in soft tissues of limb [facility]* Diagnosis Atypical nevus- Primary Benign neoplasm of skin, site unspecified documented in this encounter [facility] Work Phone: Evaluation note* Diagnosis Contusion of right ankle, initial encounter- Primary [facility] Diagnosis Rash and nonspecific skin eruption- Primary Rash and other nonspecific skin eruption documented in this encounter [facility] Work Phone: Evaluation note* Diagnosis Bilateral elbow joint pain- Primary documented in this encounter [facility] Work Phone: Evaluation note* Diagnosis Bilateral elbow joint pain- Primary documented in this encounter [facility] Work Phone: Evaluation noteNo assessment information available [facility] Work Phone: Evaluation note* Diagnosis Bilateral elbow joint pain documented in this encounter [facility] Work Phone: Evaluation note* Diagnosis Bilateral elbow joint pain Bilateral elbow joint pain documented in this encounter [facility] Work Phone: History of Present illness Narrative* Pt presents for hand pain and numbness tingling. Has had for years, right greater than left, and isgetting progressively worse. RIght hand is weak and hard to use, right hand dominant. USually firstthree , sometimes four fingers. Has tried carpal tunnel braces and they seemed to make it worse. Noneck pain. * Has ADD and sees specialist for meds for that . [facility] 205 DO Work Phone: History of Present illness Narrative* Pt presents for hand pain and numbness tingling. Has had for years, right greater than left, and isgetting progressively worse. RIght hand is weak and hard to use, right hand dominant. USually firstthree , sometimes four fingers. Has tried carpal tunnel braces and they seemed to make it worse. Noneck pain. * Has ADD and sees specialist for meds for that . [facility] Work Phone: Hospital Discharge instructions* Attachments The following attachments cannot be sent through Care Everywhere. * Rash (Taiwanese) documented in this [facility] Work Phone: Hospital Discharge instructions* Attachments The following attachments cannot be sent through Care Everywhere. * Acute Pain, Adult (Taiwanese) * Contusion Discharge Instructions (Taiwanese) [facility] Additional Instructions You tested negative for COVID/influenza/RSV. At this time with your fever and bodyaches I suspect you have some kind of viral illness. You can alternate Tylenol and ibuprofen every 3 hours as needed, rest and drink plenty of fluids. If you develop new or worsening symptoms please be reevaluated.[facility] Work Phone: Instructions* Attachments The following attachments cannot be sent through Care Everywhere. * Plantar Fasciitis (Taiwanese) documented in this encounter[facility]HealthReason for referral (narrative)* Consultation (Routine) - Authorized Specialty Diagnoses / Procedures Referred By Ingrid t Referred To Contact Dermatology Diagnoses Atypical nevus Procedures MS OFFICE/OUTPATIENT NEW HIGH MDM 60-74 MINUTES Rosa Isela Lanza MD [address] [facility] Medical Office Building [place] [id number] Referral ID Status Reason Start Date Expiration Date Visits Requested Visits Authorized [id number] Authorized Specialty Services Required 09/15/2022 03/14/2023 1 1 [facility] Work Phone: Reason for referral (narrative)No reason for referral information [facility] Work Phone: Reason for visit Narrative* Imaging (Routine) - Authorized Specialty Diagnoses / Procedures Referred By Ingrid le Referred To Contact Radiology Diagnoses Bilateral elbow joint pain Procedures XR elbow 3+ views bilateral Leb, Genie Palomino MD [address] [place] [id number] Phone: tel: fax: Referral ID Status Reason Start Date Expiration Date Visits Requested Visits Authorized [id number] Authorized Perform Procedure 05/23/2024 05/23/2025 1 1 [facility] Work Phone: Discharge Instructions The following attachments cannot be sent through Care Everywhere. * Lower Extremity Contusion (Taiwanese) in this encounter Assessments Diagnosis Contusion of lesser toe of right foot without damage to nail, initial encounter- Primary Summary Purpose Family History No Family History Records FoundUnknown Family Member Name Dates Details No pertinent family history: Mother(V49.89, Z78.9) Status:Active Unknown Family Member Name Dates Details No pertinent family history: Mother(V49.89, Z78.9) Status:Active Unknown Family Member Name Dates Details No pertinent family history: Mother(V49.89, Z78.9) Status:Active Unknown Family Member Name Dates Details No pertinent family history: Mother(V49.89, Z78.9) Status:Active Unknown Family Member Name Dates Details No pertinent family history: Mother(V49.89, Z78.9) Status:Active Unknown Family Member Name Dates Details No pertinent family history: Mother(V49.89, Z78.9) Status:Active Unknown Family Member Name Dates Details No pertinent family history: Mother(V49.89, Z78.9) Status:Active Unknown Family Member Name Dates Details No pertinent family history: Mother(V49.89, Z78.9) Status:Active Unknown Family Member Name Dates Details No pertinent family history: Mother(V49.89, Z78.9) Status:Active Unknown Family Member Name Dates Details No pertinent family history: Mother(V49.89, Z78.9) Status:Active Unknown Family Member Name Dates Details No pertinent family history: Mother(V49.89, Z78.9) Status:Active Unknown Family Member Name Dates Details No pertinent family history: Mother(V49.89, Z78.9) Status:Active Unknown Family Member Name Dates Details No pertinent family history: Mother(V49.89, Z78.9) Status:Active Unknown Family Member Name Dates Details No pertinent family history: Mother(V49.89, Z78.9) Status:Active Unknown Family Member Name Dates Details No pertinent family history: Mother(V49.89, Z78.9) Status:Active Advance Directives No Advanced Directives Records FoundDocuments on File Type Date Recorded Patient Caddy Packer Expl anation ACP-Advance Directive ACP-Power of Supervisor Title Documents on File Type Date Recorded Patient Caddy Packer Expl anation Advance Directives and Livin g Will 06/06/2021 12:00 AM Advance Directive Response Recorded Date/ Time Living Will Yes February 03 10:56am Power of Supervisor Title Yes February 03, 2017 10:56am Advance Directive Response Recorded Date/ Time Living Will Yes May 22, 2024 7:05pm Do you have a Healthcare Power of Supervisor Title? Yes May 22, 2024 7:05pm Name of Medical Power of Supervisor Title May 22, 2024 7:05pm Reason for Referral Status Reason Specialty Diagnoses / Procedures Referre d By Contact Referred To Contact Open Radiology Diagnoses Leg swelling Rash Procedures VL DUP LOWER EXTREMITY VENOUS BILATERAL Yuliana Bailey MD [address] [place] [address] Specialty Diagnoses / Procedures Referred By Ingrid le Referred To Contact Neurology Diagnoses Numbness and tingling of hand Rosa Isela Lanza MD [address] [place] [address] Sohan Christopher MD [address] [address] Referral ID Status Reason Start Date Expiration Date V isits Requested Visits Authorized [id number] Authorized 06/06/2021 06/06/2022 1 1 Referral ID Status Reason Start Date Expiration Date Visits Re quested Visits Authorized [id number] Closed 06/06/2021 06/06/2022 1 1 Specialty Diagnoses / Procedures Referred By Ingrid le Referred To Contact Podiatry Diagnoses Right foot pain Rosa Isela Lanza MD [address] [place] [address] [facility] [address] [place] [address] Referral ID Status Reason Start Date Expiration Date V isits Requested Visits Authorized [id number] Pending Review 12/26/2021 12/26/2022 1 1 Chief Complaint Chief Complaint: JUAN JOSE BOWERS is here with a chief complaint of C/O RT ARM NUMBNESS AND TINGLING; 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 STATES RIGHT IS WORSE THAN LEFT. NUMBNESS AND TINGLING ARE CONSTANT. DIFFICULTY LIFTING/GRASPING OBJECTS. PAIN RADIATES INTO THE ELBOW. EMG DONE. REFERRED BY DR LANZA.PT HERE FOR MAHNAZ CTS. STATES RIGHT IS WORSE THAN LEFT. NUMBNESS AND TINGLING ARE CONSTANT. DIFFICULTY LIFTING/GRASPING OBJECTS. PAIN RADIATES INTO THE ELBOW. EMG DONE. REFERRED BY DR LANZA.* P/O 1ST 10/28/21 * OCTR R HAND * IMPROVED * P/O 1ST 10/28/21 * OCTR R HAND * IMPROVED * 3 WK PO L CTR 11/13/21 * PAIN: 0 * IMPROVED Chief Complaint: JUAN JOSE BOWERS is here with a chief complaint of C/O B/L FOOT PAIN; RT WORSE THANLT; STATES HAS HAS A LONG TIME BUT SEEMS TO BE GETTING WORSE. C/O IRREGULAR MENSTRAL CYCLES; NO PERIOD X 3MO; STATES HAS HAD NEGATIVE TEST; HAD VASECTOMY. Chief Complaint and Reason for Visit Chief Complaint lack of periods 3mos , neg preg tests IRREGULAR MENSES Reason for Visit Irregular menstrual bleeding Chief Complaint Admit Date headache, fever, skin hurts May 6:50pm Additional Source Comments Reason for Visit (unrecogniz ed section and content) Reason Comments Foot Pain pt states, I slipp ed and fell yesterday morning and landed weirdly on my R. foot. It is now black and blue and hurts really badly. Reason Comments Leg Swelling Reason Comments Foot Pain Bilateral foot pain x6 months, R is worse but both are bad Reason Comments Follow-up F/u bilateral heel p ain, pt still having some pain Reason Comments Foot Pain Right foot flare up in May 2022. H/o bilateral heel spurs 01/2022 - BZ gave bilateral injections. New x-rays today. Reason Comments Follow-up PF Right foot Did in j last visit. 6 wk f/u Reason Comments Referral to dermatology Reason Comments Ankle Pain Right Reason Comments Rash Reason Comments Elbow Pain Reason Comments Elbow Pain Reason Comments Pain New Problem Specialty Diagnoses / Procedures Referred By Ingrid t Referred To Contact Orthopaedic Surgery / Orthopedic Surgery Diagnoses Bilateral elbow joint pain Rosa Isela Lanza MD [address] [address] Phone: tel: fax: Referral ID Status Reason Start Date Expiration Date Visits Requested Visits Authorized [id number] Authorized Specialty Services Required 05/06/2024 05/06/2025 1 1 INFORMATION SOURCE (unrecogn ized section and content) DATE CREATED AUTHOR 03/30/2018 [facility] DATE CREATED AUTHOR AUTHOR'S ORGANIZ ATION 12/17/2020 [facility] DATE CREATED AUTHOR AUTHOR'S ORGANIZ ATION 12/19/2020 [facility] DATE CREATED AUTHOR AUTHOR'S ORGANIZ ATION 12/25/2021 [facility] DATE CREATED AUTHOR AUTHOR'S ORGANIZ ATION 12/26/[address] [facility] DATE CREATED AUTHOR AUTHOR'S ORGANIZ ATION 05/12/2022 [facility] DATE CREATED AUTHOR AUTHOR'S ORGANIZ ATION 08/15/2022 [facility] DATE CREATED AUTHOR AUTHOR'S ORGANIZ ATION 01/28/2023 [facility] DATE CREATED AUTHOR AUTHOR'S ORGANIZ ATION 08/05/2023 [facility] DATE CREATED AUTHOR AUTHOR'S ORGANIZ ATION 05/28/2024 [facility] DATE CREATED AUTHOR AUTHOR'S ORGANIZ ATION 06/03/2024 [facility] DATE CREATED AUTHOR AUTHOR'S ORGANIZ ATION 06/03/2024 [facility] DATE CREATED AUTHOR AUTHOR'S ORGANIZ ATION 06/16/[address] [facility] Care Teams (unrecognized sec tion and content) Ledger Clerk Relationship Specialty Start Date End Date Rosa Isela Lanza MD [address] [place] [address] PCP - General Family Medicine 06/06/21 Ledger Clerk Relationship Specialty Start Date End Date Rosa Isela Lanza MD [address] [place] [address] PCP - General Family Medicine 06/06/21 Ledger Clerk Relationship Specialty Start Date End Date Rosa Isela Lanza MD [address] [place] [address] PCP - General Family Medicine 06/06/21 Ledger Clerk Relationship Specialty Start Date End Date Rosa Isela Lanza MD [address] [place] [address] PCP - General Family Medicine 06/06/21 Ledger Clerk Relationship Specialty Start Date End Date Rosa Isela Lanza MD [address] [place] [phone] PCP - General Family Medicine 06/06/21 Ledger Clerk Relationship Specialty Start Date End Date Rosa Isela Lanza MD [address] [place], [place] [phone] PCP - General Family Medicine 06/06/21 Ledger Clerk Relationship Specialty Start Date End Date Rosa Isela Lanza MD [address] [place], [place] [id number] PCP - General Family Medicine 06/06/21 Ledger Clerk Relationship Specialty Start Date End Date Roas Isela Lanza MD [address] [place], [place] [phone] PCP - General Family Medicine 06/06/21 Ledger Clerk Relationship Specialty Start Date End Date Rosa Isela Lanza MD [address] [place] [address] Medical [place] [phone] PCP - General Family Medicine 09/11/22 Ledger Clerk Relationship Specialty Start Date End Date Alex Katz DO [address] [place] [address] PCP - General 12/13/20 Ledger Clerk Relationship Specialty Start Date End Date Alex Katz DO [address] [place] [address] PCP - General 12/13/20 Ledger Clerk Relationship Specialty Start Date End Date Rosa Isela Lanza MD [address] [facility] Medical Office [place] [phone] PCP - General Family Medicine 09/11/22 Ledger Clerk Relationship Specialty Start Date End Date Rosa Isela Lanza MD [address] [address] PCP - General Family Medicine 09/11/22 Ledger Clerk Relationship Specialty Start Date End Date Rosa Isela Lanza MD [address] [address] PCP - General Family Medicine 09/11/22 Team Status: Active Member Role Status Dates Dr. Alex Katz , DO Primary Care Provider Active Team Status: Inactive Member Role Status Dates Dr. Alex Katz , DO Primary Care Provider Active Start: May 22, 2024 End: May 22, 2024 Dr. Km Lock , DO Emergency Provider Active Start: May 22, 2024 End: May 22, 2024 Ledger Clerk Relationship Specialty Start Date End Date Rosa Isela Lanza MD [address] [address] PCP - General Family Medicine 09/11/22 Ledger Clerk Relationship Specialty Start Date End Date Rosa Isela Lanza MD [address] [address] PCP - General Family Medicine 09/11/22 Ledger Clerk Relationship Specialty Start Date End Date Rosa Isela Lanza MD [address] [address] PCP - General Family Medicine 09/11/22 Goals (unrecognized section and content) Goals may be documented in a n alternate sectionGoals may be documented in an alternate sectionGoals may be documented in an alternate section FOR RECORDS PERTAINING TO PATIENTS WHO ARE OR HAVE BEEN ENROLLED IN A CHEMICAL DEPENDENCY/SUBSTANCEABUSE PROGRAM, SOME INFORMATION MAY BE OMITTED. This clinical summary was aggregated from multiple sources. Caution should be exercised in using it in the provision of clinical care. This summary normalizes information from multiple sources, and as a consequence, information in this document may materially change the coding, format and clinical context of patient data. In addition, data may be omitted in some cases. CLINICAL DECISIONS SHOULD BE BASED ON THE PRIMARY CLINICAL RECORDS. [facility] [employer], [facility]. provides no warranty or guarantee of the accuracy or completeness of information in this document.
--- OUTSIDE RECORDS SUMMARY | 2024-09-16 07:42 | XMS RPT_ITS | CCD ---
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 Alex Katz Primary Care Provider [phone] Dr. Alex Katz Referring Provider MACRINA Dumont Attending Provider [phone] Dr. Manoj Ojeda Admitting Unavail able Rusty, [...] Rosa Isela Lanza MD Primary Care Provider [phone] LILY SMITH, MARILYNN MABRY Attending Un available ROSA ISELA LANZA Primary Care Unavailable Alex Katz DO Primary Care Provider ALEX KATZ Primary Care Unavailable MEIR FARRELL Referring Unavailable ALEX KATZ Primary Care Unavailable MEIR FARRELL Attending Unavailable Rosa Isela Lanza MD Primary Care Provider [phone] Dr. Alex Katz DO Primary Care Provider [phone] Dr. Km Lock DO Emergency Provider Alex [...] mouth nightly . 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 [facility] US Abdomenon 06-02-2024 These images are not reportable by radiology and will not be interpreted by Radiologists. IMAGING XR ELBOW 3+ VIEWS BILATERALo n 06-02-2024 XR ELBOW 3+ VIEWS BILATERAL Interpreted By: Mic Fowler, STUDY: XR ELBOW 3+ VIEWS BILATERAL INDICATION: Signs/Symptoms:bilatera l elbow pain. COMPARISON: None ACCESSION NUMBER(S): [id number] ORDERING CLINICIAN: GENIE RODAS FINDINGS: Small right triceps spur. No evidence of fracture. Bilateral joint spaces are normal. IMPRESSION: Small right triceps insertion spur. Otherwise normal radiographs bilateral elbows. Signed by: Mic Fowler 06/04/2024 2:43 PM Dictation workstation: [id number] [facility] Emergency Department Summary on 05-22-2024 Emergency Department Summary [facility] Medical Records Department [address] [place] [address] Emergency Department Summary 05/22/24 MR#: [id number] Acct: [id number] Name: JUAN JOSE BOWERS Rep #: [id number] : 1985 38 From: Km Lock DO PCP: Dr. Alex Katz, DO Status:DEP ER Location: ED HPI History of Present Illness Chief Complaint: Fever Narrative Narrative: 38-year-old female with no past medical history states last night she developed a fever, chills, and generalized body pain. [place] like her skin was painful to the [...] employed current occupation: [employer] [place] history of recent travel: No sexually active: [...] other testing would be helpful. I recommended cozk-bic-gkcuuku analgesia and discussed return precautions. She was [...] a headache. (more content not included)... Normal [facility] Influenza virus A and B and SARS-CoV-2 (COVID-19) and Respiratory syncytial virus RNAOrdered By: Mami Camarena on 05-22-2024 SARS-CoV-2 (COVID-19) RNA HÉCTOR+probe Ql (Unsp spec) [facility] M100.678on 05-22-2024 M100.678 Pending SARS-CoV-2 (COVID 19) Negative INFLUENZA A Negative INFLUENZA B Negative RSV PCR Negative Normal [facility] Comment on above: Performed By: #### M 100.678 #### [facility] Laboratory [address] 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 Normal [facility] ED Nursing Noteon 08-03-2023 ED Nursing Note Patient arrived with steady gait to room 3. Patient states she was cutting down tree limb yesterday when it fell on her right ankle. Patient has abrasion on right ankle with some redness. Patient endorses limited ROM with right foot but is able to bear weight. Last dose of ibuprofen this AM. 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 FAMILY HISTORY Family History Problem Relation Name Age of Onset ADD / ADHD Sister Other (47[address]) Mother attention disorder ADD / ADHD Sister SOCIAL HISTORY Social History Socioeconomic History Marital status: Tobacco Use Smoking status: Never Smokeless tobacco: Never Vaping Use Vaping status: Never Used Substance and Sexual Activity Alcohol use: No Drug use: No Social Determinants of Health Financial Resource Strain: Low Risk (08/30/2018) Received from [facility] Overall Financial Resource Strain (CARDIA) Difficulty of Paying Living Expenses: Not hard at all Food Insecurity: No Food Insecurity (08/30/2018) Received from [facility] Hunger Vital Sign Worried About Running Out of Food in the Last Year: Never true Ran Out of Food in the Last Year: Never true Transportation Needs: No Transportation Needs (08/30/2018) Received from [facility] PRAPARE - Transportation Lack of Transportation [...] (155 lb) (more content not included)... Normal [facility] XR Ankle - right 3 Viewson 0 08-03-2023 No evidence for acute fracture or dislocation. Plantar calcaneal heel spur Report Dictated on Electronically Signed By: Manoj Rivas MD Electronically Signed Date/Time: 08/03/2023 10:47 AM T [facility] Patient Name: JUAN JOSE HENSON : [...] body. Plantar calcaneal heel spur is noted. [facility] Manoj Rivas MD - 08/03/2023 Patient [...] Electronically Signed Date/Time: 08/03/2023 10:47 AM EDT [facility] Radiology Study observation (narrative) [facility] alth XR Ankle - right 3 ViewsOrde red By: Manoj Rivas on 08-03-2023 [facility] [employer] Work Phone: XR ORTHO FOOT RIGHTon 2022 XR ORTHO FOOT RIGHT 3 views of the right foot reviewed today AP MO and lateral. No acute fracture or dislocation of note. Plantar calcaneal spur noted. ?? Dictated by: DULCE MARIA ZUNIGA on ThuJuly 09, 2022 4:20:25 PM EDT Transcribed by: DULCE MARIA ZUNIGA on ThuJuly 09, 2022 4:20:25 PM EDT Finalized by: DULCE MARIA ZUNIGA on ThuJuly 09, 2022 4:20:25 PM EDT Normal [facility] Comment on above: Order Comment: Injur y/Trauma or Illness?:Illness/Other How long have you had these symptoms (acute/chronic)?:Chronic Reason for exam?:Right foot pain History of cancer?:Unknown Surgeries, chemotherapy, or radiation?:No Type of Exam?:Initial Additional signs and symptoms?:H/o heel spurs No Panel Informationon 01-14 Radiology Study observation (narrative) [facility] XR FOOT LEFT 3+ VIEWS (STAND MEENAKSHI)on 01-14-2022 XR FOOT LEFT 3+ VIEWS (STANDARD) X-rays 3 views left foot: Patient has the beginning of an inferior calcaneal heel spur Dictated by: BAUDILIO FIELD on ThuJan 14, 2022 6:05:07 PM EST Transcribed by: BAUDILIO FIELD on ThuJan 14, 2022 6:05:07 PM EST Finalized by: BAUDILIO FIELD on ThuJan 14, 2022 6:05:07 PM EST [facility] Comment on above: Order Comment: Injur y/Trauma [...] 14, 2022 6:05:26 PM EST Transcribed by: BAUDILOI FIELD on ThuJan 14, 2022 6:05:26 PM EST Finalized by: BAUDILIO FIELD on ThuJan 14, 2022 6:05:26 PM EST Normal [facility] Comment on above: Order Comment: Injur y/Trauma or Illness?:Illness/Other How long have you had these symptoms (acute/chronic)?:Acute Reason for exam?:R foot pain History of cancer?:n Surgeries, chemotherapy, or radiation?:n Type of Exam?:Initial Additional signs and symptoms?:n/a XR Foot Left 3+ Views (Stand meenakshi)on 01-14-2022 X-rays 3 views left foot: Patient has the beginning of an inferior calcaneal heel spur [facility] XR Foot Right 3+ Views (Juan C darkimberly)on 01-14-2022 X-rays 3 views right foot: Patient has the beginning of an inferior calcaneal heel spur [facility] Laboratory - Chemistry and C hemistry - challengeon 01-09-2022 Free T4 [Mass/Vol] 1.08 ng/dL 0.76-1.46 [facility] Work Phone: No Panel Informationon 01-09 Dehydroepiandrosterone Sulfate 217.0 ug/dL 57.3-279.2 [facility] Work Phone: Thyroid Stimulating Hormone (TSH) 1.40 uIU/mL 0.358-3.74 [facility] Work Phone: Serum or plasma 17-hydroxypr ogesterone measurement (mass/volume)on 01-09-2022 17-Hydroxyprogesterone [Mass/Vol] 45 ng/dL . [facility] Work Phone: Comment on above: Adult Female Follicu lar 15 - 70 Luteal 35 - 290Performed at: - [facility] [id number] Director: Spencer Sanchez MD, Phone: [phone] Serum or plasma prolactin me asurement (mass/volume)on 01-09-2022 Prolactin [Mass/Vol] 13.6 ng/mL [facility] Work Phone: Comment on above: NORMAL REFERENCE RAN GES FEMALE NON- 2.2 - 30.3 ng/mL 8.1 - 347.6 ng/mL POST-MENOPAUSAL 0.7 - 31.5 ng/mL MALE 2.5 - 17.4 ng/mL Serum or plasma testosterone free measurement (mass/volume)on 01-09-2022 Testosterone Free [Mass/Vol] 2.1 pg/mL 0.0-4.2 [facility] Work Phone: Comment on above: Performed at: CB - [facility] [id number] [place], [place] [id number] Director: Aly Soriano PhD, Phone: [phone] at: BN - [facility] [address] [id number] Director: Spencer Sanchez MD, Phone: [phone] CBC AND DIFFERENTIALon 12-25 % AUTOMATED IMMATURE GRAN 0.6 % Normal 0.0 - 0.9 [facility] Comment on above: Result Comment: Corrie ture Granulocyte Count (IG) includes promyelocytes, myelocytes and metamyelocytes but does not include bands. Percent differential counts (%) should be interpreted in the context of the absolute cell counts (cells/L). Performed By: #### C BCDF #### [address] [address] Basophils (Bld) [#/Vol] 0.06 10*3/uL Normal 0.00 - 0.1 0 [facility] Comment on above: Performed By: #### C BCDF #### [address] [address] Basophils/100 WBC (Bld) 0.9 % Normal 0.0 - 2.0 U [facility] Comment on above: Performed By: #### C BCDF #### [address] [address] Eosinophils (Bld) [#/Vol] 0.10 10*3/uL Normal 0.00 - 0.70 [facility] Comment on above: Performed By: #### C BCDF #### [address] [address] Eosinophils/100 WBC (Bld) 1.5 % Normal 0.0 - 6.0 [facility] Comment on above: Performed By: #### C BCDF #### [address] [address] Erythrocyte distribution width (RBC) [Ratio] 12.3 % Normal 11.5 - 14.5 [facility] Comment on above: Performed By: #### C BCDF #### [address] [address] Hematocrit (Bld) [Volume fraction] 43.6 % Normal 36.0 - 46.0 [facility] Comment on above: Performed By: #### C BCDF #### [address] [address] Hemoglobin (Bld) [Mass/Vol] 14.1 g/dL Normal 12.0 - 16.0 [facility] Comment on above: Performed By: #### C BCDF #### [address] [address] Lymphocytes (Bld) [#/Vol] 2.00 10*3/uL Normal 1.20 - 4.80 [facility] Comment on above: Performed By: #### C BCDF #### [address] [address] Lymphocytes/100 WBC (Bld) 30.2 % Normal 13.0 - 44.0 [facility] Comment on above: Performed By: #### C BCDF #### [address] [address] MCHC (RBC) [Mass/Vol] 32.3 g/dL Normal 32.0 - 36.0 [facility] Comment on above: Performed By: #### C BCDF #### [address] [address] MCV (RBC) [Entitic vol] 92 fL Normal 80 - 100 [facility] Comment on above: Performed By: #### C BCDF #### [address] [address] Monocytes (Bld) [#/Vol] 0.63 10*3/uL Normal 0.10 - 1.0 0 [facility] Comment on above: Performed By: #### C BCDF #### [address] [address] Monocytes/100 WBC (Bld) 9.5 % Normal 2.0 - 10.0 [facility] Comment on above: Performed By: #### C BCDF #### [address] [address] Neutrophils (Bld) [#/Vol] 3.79 10*3/uL Normal 1.20 - 7.70 [facility] Comment on above: Result Comment: Perc ent differential counts (%) should be interpreted in the context of the absolute cell counts (cells/L). Performed By: #### C BCDF #### [address] [address] Neutrophils/100 WBC (Bld) 57.3 % Normal 40.0 - 80.0 [facility] Comment on above: Performed By: #### C BCDF #### [address] [address] Platelets (Bld) [#/Vol] 399 10*3/uL Normal 150 - 450 [facility] Comment on above: Performed By: #### C BCDF #### [address] [address] RBC 4.72 x10E12/L Normal 4.00 - 5.20 [facility] Comment on above: Performed By: #### C BCDF #### [address] [address] WBC (Bld) [#/Vol] 6.6 10*3/uL Normal 4.4 - 11.3 [facility] Comment on above: Performed By: #### C BCDF #### [address] [address] COMPREHENSIVE PANELon 2021 Albumin [Mass/Vol] 4.1 g/dL Normal 3.4 - 5.0 [facility] Comment on above: Performed By: #### C MP #### [address] [address] ALP [Catalytic activity/Vol] 62 U/L Normal 33 - 110 [facility] Comment on above: Performed By: #### C MP #### [address] [address] ALT [Catalytic activity/Vol] 11 U/L Normal 7 - 45 [facility] Comment on above: Result Comment: Lucia ents treated with Sulfasalazine may generate falsely decreased results for ALT. Performed By: #### C MP #### [address] [address] Anion gap [Moles/Vol] 10 mmol/L Normal 10 - 20 [facility] Comment on above: Performed By: #### C MP #### [address] [address] AST [Catalytic activity/Vol] 14 U/L Normal 9 - 39 [facility] Comment on above: Performed By: #### C MP #### [address] [address] Bilirubin [Mass/Vol] 0.4 mg/dL Normal 0.0 - 1.2 [facility] Comment on above: Performed By: #### C MP #### [address] [address] Calcium [Mass/Vol] 9.0 mg/dL Normal 8.6 - 10.3 [facility] Comment on above: Performed By: #### C MP #### [address] [address] Chloride [Moles/Vol] 103 mmol/L Normal 98 - 107 [facility] Comment on above: Performed By: #### C MP #### [address] [address] Creatinine [Mass/Vol] 0.82 mg/dL Normal 0.50 - 1.05 [facility] Comment on above: Performed By: #### C MP #### [address] [address] eGFR FEMALE >90 Normal >90 [facility] Comment on above: Result Comment: CALC ULATIONS OF ESTIMATED GFR ARE PERFORMED USING THE 2020 CKD-EPI STUDY REFIT EQUATION WITHOUT THE RACE VARIABLE FOR THE IDMS-TRACEABLE CREATININE METHODS. https://jasn.asnjournals.org/content/early//ASN.682 0318776 Performed By: #### C MP #### [address] [address] Glucose [Mass/Vol] 75 mg/dL Normal 74 - 99 [facility] Comment on above: Performed By: #### C MP #### [address] [address] HCO3 (Bld) [Moles/Vol] 27 mmol/L Normal 21 - 32 [facility] Comment on above: Performed By: #### C MP #### [address] [address] Potassium [Moles/Vol] 4.2 mmol/L Normal 3.5 - 5.3 [facility] Comment on above: Performed By: #### C MP #### [address] [address] Protein [Mass/Vol] 7.3 g/dL Normal 6.4 - 8.2 [facility] Comment on above: Performed By: #### C MP #### [address] [address] Sodium [Moles/Vol] 136 mmol/L Normal 136 - 145 [facility] Comment on above: Performed By: #### C MP #### [address] [address] Urea nitrogen [Mass/Vol] 23 mg/dL Normal 6 - 23 [facility] Comment on above: Performed By: #### C MP #### [address] [address] Complete Blood Count + Diffe rentialon 12-25-2021 Basophils/100 WBC (Bld) 0.9 % 0.0 - 2.0 M [facility] Work Phone: Erythrocyte distribution width (RBC) [Ratio] 12.3 % See Below [facility] [employer] Work Phone: Comment on above: Reference Range: 11. 5 - 14.5 Hematocrit (Bld) [Volume fraction] 43.6 % See Below [facility] [employer] Work Phone: Comment on above: Reference Range: 36. 0 - 46.0 Hemoglobin (Bld) [Mass/Vol] 14.1 g/dL See Below [facility]: Comment on above: Reference Range: 12. 0 - 16.0 Lymphocytes/100 WBC (Bld) 30.2 % See Below [facility] [employer] Phone: Comment on above: Reference Range: 13. 0 - 44.0 MCHC (RBC) [Mass/Vol] 32.3 g/dL See Below [facility] [employer] Work Phone: Comment on above: Reference Range: 32. 0 - 36.0 MCV (RBC) [Entitic vol] 92 fL 80 - 100 M [facility] [employer] Phone: Monocytes/100 WBC (Bld) 9.5 % 2.0 - 10.0 M [facility] [employer] Phone: Neutrophils/100 WBC (Bld) 57.3 % See Below [facility] [employer] Work Phone: Comment on above: Reference Range: 40. 0 - 80.0 Platelets (Bld) [#/Vol] 399 10*3/uL 150 - 450 [facility] [employer] Phone: RBC (Bld) [#/Vol] 4.72 {x10E12/L} See Below [facility] [employer] Phone: Comment on above: Reference Range: 4.0 0 - 5.20 WBC (Bld) [#/Vol] 6.6 10*3/uL 4.4 - 11.3 [facility] [employer] Work Phone: Complete Blood Count + Differential 0.06 {x10E9/L} See Below [facility] [employer] Phone: Comment on above: Reference Range: 0.0 0 - 0.10 Complete Blood Count + Differential 0.10 {x10E9/L} See Below [facility] [employer] Work Phone: Comment on above: Reference Range: 0.0 0 - 0.70 Complete Blood Count + Differential 0.63 {x10E9/L} See Below [facility] [employer] Phone: Comment on above: Reference Range: 0.1 0 - 1.00 Complete Blood Count + Differential 2.00 {x10E9/L} See Below [facility] [employer] Phone: Comment on above: Reference Range: 1.2 0 - 4.80 Complete Blood Count + Differential 3.79 {x10E9/L} See Below [facility] [employer] Phone: Comment on above: Reference Range: 1.2 0 - 7.70 Percent differential counts (%) should be interpreted in the context of the absolute cell counts (cells/L). Complete Blood Count + Differential 1.5 % 0.0 - 6.0 [facility] [employer] Phone: Complete Blood Count + Differential 0.6 % 0.0 - 0.9 [facility] [employer] Phone: Comment on above: Immature Granulocyte Count (IG) includes promyelocytes, myelocytes and metamyelocytes but does not include bands. Percent differential counts (%) should be interpreted in the context of the absolute cell counts (cells/L). HCG, Beta Quantitativeon HCG.beta subunit Qn m[IU]/mL [facility] [employer] Work Phone: Comment on above: .Total HCG measureme nt is performed using the [employer] AccessImmunoassay which detects intact HCG and free beta HCG subunit. .This test is not indicated for use as a tumor marker.HCG testing is performed using a different test methodology at [facility] than other [facility]. Direct result comparisonshould only be made within the same method. REF VALUESNON FEMALE <5MALES <5 HCG,BETA-QUANTITATIVEon 12-10 HCG,BETA-QUANTITATIVE <2 Normal [facility] Comment on above: Result Comment: . Total HCG measurement is performed using the [employer] Access Immunoassay which detects intact HCG and free beta HCG subunit. . This test is not indicated for use as a tumor marker. HCG testing is performed using a different test methodology at [facility] than other [facility]. Direct result comparison should only be made within the same method. REF VALUES NON FEMALE <5 MALES <5 Performed By: #### H CGQU #### [id number] [place] [address] Laboratory - Chemistry and C hemistry - challengeon 12-25-2021 Albumin BCP dye [Mass/Vol] 4.1 g/dL 3.4 - 5.0 [facility] [employer] Work Phone: ALP [Catalytic activity/Vol] 62 U/L 33 - 110 [facility] Work Phone: ALT With P-5'-P [Catalytic activity/Vol] 11 U/L 7 - 45 [facility] [employer] Work Phone: Comment on above: Patients treated wit h Sulfasalazine may generate falsely decreased results for ALT. Anion gap [Moles/Vol] 10 mmol/L 10 - 20 [facility] [employer] Work Phone: AST With P-5'-P [Catalytic activity/Vol] 14 U/L 9 - 39 [facility] [employer] Work Phone: Bilirubin [Mass/Vol] 0.4 mg/dL 0.0 - 1.2 [facility] [employer] Work Phone: Calcium [Mass/Vol] 9.0 mg/dL 8.6 - 10.3 [facility] [employer] Work Phone: Chloride [Moles/Vol] 103 mmol/L 98 - 107 [facility] Work Phone: CO2 [Moles/Vol] 27 mmol/L 21 - 32 [facility] [employer] Work Phone: Creatinine [Mass/Vol] 0.82 mg/dL See Below [facility] Work Phone: Comment on above: Reference Range: 0.5 0 - 1.05 Glucose [Mass/Vol] 75 mg/dL 74 - 99 [facility] [employer] Work Phone: Potassium [Moles/Vol] 4.2 mmol/L 3.5 - 5.3 [facility] [employer] Phone: Protein [Mass/Vol] 7.3 g/dL 6.4 - 8.2 [facility] [employer] Work Phone: Sodium [Moles/Vol] 136 mmol/L 136 - 145 [facility] [employer] Phone: TSH Qn 1.70 m[IU]/L See Below [facility] [employer] Phone: Comment on above: Reference Range: 0.4 4 - 3.98 TSH testing is performed using different testing methodology at [facility] than at [facility]. Direct result comparisons should only be made within the same method. Urea nitrogen [Mass/Vol] 23 mg/dL 6 - 23 [facility] [employer] Phone: No Panel Informationon 12-25 >90 >90 [facility] [employer] Phone: Comment on above: CALCULATIONS OF MARITZA MATED GFR ARE PERFORMED USING THE 2020 CKD-EPI STUDY REFIT EQUATION WITHOUT THE RACE VARIABLE FOR THE IDMS-TRACEABLE CREATININE METHODS.https://jasn.asnjournals.org/content/early /ASN.4732895823 PROLACTINon 12-25-2021 PROLACTIN 9.5 ug/L Normal 3.0 - 20.0 [facility] Comment on above: Performed By: #### P ROL #### [facility] [address] [address] Prolactin, Serumon 2 Prolactin [Mass/Vol] 9.5 ug/L 3.0 - 20.0 [facility] Work Phone: TSH WITH REFLEX TO FREE T4 I F ABNORMALon 12-25-2021 TSH Qn 1.70 m[IU]/L Normal 0.44 - 3.98 [facility] Comment on above: Result Comment: TSH testing is performed using different testing methodology at [facility] than at other [facility]. Direct result comparisons should only be made within the same method. Performed By: #### T [facility] #### [facility] [address] [place] [address] Office Visit (Family Medicin e)on 12-24-2021 Follow-up visit Diagnoses/Problems Irregular periods (626.4) (N92.6) Chronic pain of both feet (729.5,338.29) (M79.671,M79.672,G89.29 ) Orders Chronic pain of both feet Podiatry Referral Evaluation and Treatment Evaluate AND Treat Status: Hold For - Scheduling Requested for: [id number] Irregular periods Complete Blood Count + Differential; Status:Active; Requested for:[id number]; Comprehensive Metabolic Panel; Status:Active; Requested for:[id number]; HCG, Beta Quantitative; Status:Active; Requested for:[id number]; Prolactin Series; Status:Active; Requested for:[id number]; TSH WITH REFLEX TO FREE T4 IF ABNORMAL; Status:Active; Requested for:[id number]; Patient Discussion/Summary Labs today, will call results. [...] negative , had vasectomy. She has a learning technologies specialist appt in a few weeks. 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 Patient has living will (V49.89) (Z78.9) Rarely consumes alcohol (V49.89) (Z78.9) Allergies No Known Drug Allergies Recorded By: Steph Dave; 06/05/2021 10:44:07 AM Current Meds Medication NameInstructionReason Adderall 10 MG Oral Tablet Adderall XR 20 MG Oral Capsule Extended Release 24 Hour Famciclovir 500 MG Oral Tablet Vitals Vital Signs Recorded: 41Vjq1585 11:43AM Heart Rate80 Engthqmr471, LUE, Sitting Iqjjfjfha92, LUE, Sitting Height5 ft 6 in Vynmga255 lb 3 oz BMI Pendkopayl39.08 kg/m2 BSA Calculated1.91 Tobacco Useb) No Falls [...] Dec 24 2021 12:40PM EST (Author) Normal [facility] Tobacco Screening.on 022 Fall risk assessment a) No falls within the last year [facility] Phone: Tobacco use status HS b) No [facility] Work Phone: Post Op (Orthopaedic Surgery )on [...] smoker 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 300 Work Phone: [...] mL/hr IntraVenous Clinician Notes: Geri-operative order ONLY 13-Nov-2021 08:28 Lactated Ringers Infusion [...] be shared with your follow-up providers (doctor, acquisition analyst, physical therapist, etc.). Keep Extremity Elevated Hand, May shower Post Procedure Discharge Criteria Criteria: Easily arousable / responding appropriately; Significant complications are absent; SpO2 = or > 92%, or if SpO2 < 92%, maintains within 2% of baseline; Vital signs +/- 20% of preprocedure status; Ambulates without dizziness / age appropriate activity (more content not included)... 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 (procedure may be cancelled if no driver education instructor), center location, insurance information Prep Instructions Reviewedyes Instructed to Have No Fluids Aftermidnight How to be Addressedlindsay Spoken Language PreferredEnglish Source of Informationpatient Stated Reason for Admissionleft carpal tunnel Primary Contact Name and Numberself [phone] Medications Brought to Hospitalno General Health: Weight in kg78.1 kilogram(s) Weight in lvr216.1 pound(s) Weight Methodactual (measured) Scale Typestanding Height [...] child(santa) Living Arrangementshouse Resource/Environmental Concernsnone Anticipated Transition [place] [facility] Anticipated at Transitionnone Tobacco Use: Tobacco Useno Pre-op Checklist: Arrival [id number] Arrival Time11:08 Procedure Typeleft CTR NPOyes Last Food Xwmasd28-Khc-5499 22:00 Last Clear Fluid Dtrhzt86-Gow-1978 22:07 ID Band On Patientpatient ID (name) [...] Updated: 13-Nov-2021 11:19 by Dominique Saenz (RN) [facility] Post Op (Orthopaedic Surgery )on 11-08-2021 Post [...] smoker 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 Patient has living will (V49.89) (Z78.9) Rarely consumes alcohol (V49.89) (Z78.9) Allergies Medication No Known Drug Allergies Recorded By: Steph Dave; 06/05/2021 10:44:07 AM Current Meds Medication NameInstruction Adderall 10 MG Oral Tablet Adderall XR 20 MG Oral Capsule Extended Release 24 Hour Famciclovir 500 MG Oral Tablet HYDROcodone-Acetaminoph en 5-325 MG Oral Tablet Vitals Vital Signs Recorded: 06Odf0309 11:32AM Pszkzzpaxov70.5 F Height5 ft 6 in Znkccr584 lb BMI Buyejdqkyo32.41 kg/m2 BSA Calculated1.89 Tobacco Useb) No Falls [...] Nov 09 2021 8:08AM EST (Author) Normal [facility] Tobacco Screening.on 022 Fall risk assessment a) No falls within the last year [facility] 300 Work Phone: Tobacco use status CPHS b) No M [facility] 300 Work Phone: [...] Health Record (PHR (more content not included)... 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 (procedure may be cancelled if no driver education instructor), center location, insurance information Prep Instructions Reviewedyes Instructed to Have No Fluids Aftermidnight How to be Addressedlindsay Spoken Language PreferredEnglish Source of Informationpatient Stated Reason for Admissionsurgery Primary Contact Name and Numberself Medications Brought to Hospitalno General Health: Weight in kg78.2 kilogram(s) Weight in mnr198.4 pound(s) Weight Methodstated Scale Typestanding Height in [...] child(santa) Living Arrangementshouse Resource/Environmental Concernsnone Anticipated [facility] [place] [facility] Anticipated at Transition[facility] Tobacco Use: Tobacco Useno Pre-op Checklist: Arrival [id number] Arrival Time09:30 Procedure Typeright CTR NPOyes Last Food Vlkpud56-Ste-1695 21:00 Last Clear Fluid Ysrrcl72-Uvj-2244 22:07 ID Band On Patientpatient ID (name) [...] Additional Information Last Updated: 28-Oct-2021 10:09 by Bhavay Gunter (RN) [facility] Initial Visit (Orthopaedic S urgery)on 09-27-2021 Initial [...] smoker 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 Patient has living will (V49.89) (Z78.9) Rarely consumes alcohol (V49.89) (Z78.9) Allergies No Known Drug Allergies Recorded By: Steph Dave; 06/05/2021 10:44:07 AM Current Meds Medication NameInstruction Adderall 10 MG Oral Tablet Adderall XR 20 MG Oral Capsule Extended Release 24 Hour Famciclovir 500 MG Oral Tablet Vitals Vital Signs Recorded: 91Wjf8429 09:31AM Tqqziojyhul55.5 F Height5 ft 6 in Vsmlhd201 lb 4 oz BMI Crlkmajxyl31.45 kg/m2 BSA Calculated1.9 Tobacco Useb) No Falls [...] Sep 29 2021 12:03PM EST (Author) Normal [facility] Tobacco Screening.on 022 Fall risk assessment a) No falls within the last year [facility] 300 Work Phone: Tobacco use status CPHS b) No M [facility] 300 Work Phone: GLUCOSE,FASTINGon 06-11-2021 Glucose [Mass/Vol] 78 mg/dL Normal 74 - 99 [facility] Comment on above: Result Comment: INCR EASED RISK FOR DIABETES 100-125 mg/dL DIAGNOSTIC OF DIABETES >=126 mg/dL Diagnosis of diabetes mellitus requires confirmation of an abnormal result by repeat testing. [place] [employer], Diabetes Care; 33(Supp 1)Feb 2009. Performed By: #### G LUCF #### [address] [place] [address] Glucose, Fastingon 2 Glucose post fast [Mass/Vol] 78 mg/dL 74 - 99 [facility] [place] Work Phone: Comment on above: INCREASED RISK FOR D IABETES 100-125 mg/dL DIAGNOSTIC OF DIABETES >=126 mg/dL Diagnosis of diabetes mellitus requires confirmation of an abnormal result by repeat testing. [place] [employer], Diabetes Care; 33(Supp 1), Feb 2009. Laboratory - Chemistry and C hemistry - challengeon 06-11-2021 TSH Qn 2.22 m[IU]/L See Below [facility] [place] Work Phone: Comment on above: Reference Range: 0.4 4 - 3.98 TSH testing is performed using different testing methodology at [facility] than at other [facility]. Direct result comparisons should only be made within the same method. TSH WITH REFLEX TO FREE T4 I F ABNORMALon 06-11-2021 TSH Qn 2.22 m[IU]/L Normal 0.44 - 3.98 [facility] Comment on above: Result Comment: TSH testing is performed using different testing methodology at [facility] than at [facility]. Direct result comparisons should only be made within the same method. Performed By: #### T HYDS #### [address] [address] VITAMIN B12on 06-11-2021 Cobalamin (Vitamin B12) [Mass/Vol] 485 pg/mL Normal 211 - 911 [facility] Comment on above: Performed By: #### V TB12 #### [address] [address] Vitamin B12, Serumon 022 Cobalamin (Vitamin B12) [Mass/Vol] 485 pg/mL 211 - 911 [place] [employer] Work Phone: Office Visit (Family Medicin e)on [...] Indication : Other Glucose, Fasting; Status:Active; Requested for:[id number]; TSH WITH REFLEX TO FREE T4 IF ABNORMAL; Status:Active; Requested for:05Jun2021; Vitamin B12, Serum; Status:Active; Requested for:05Jun2021; Patient Discussion/Summary Recommend nerve conduction study to assess cause and severity, labs as well, Call concerns. 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 Well developed, well nourished. Head and Face: Head and face: Normal. Pulmonary: No respiratory distress. Musculoskeletal: mild right thenar atrophy, positive tinels right, positive phalens bilaterally. 'Scores and Scales' Signatures Electronically signed by : Rosa Isela Lanza MD; Jun 05 2021 1:26PM EST (Author) Normal [facility] Tobacco Screening.on 04-27-2 022 Tobacco use status CPHS b) No [facility] 205 DO Work Phone: VL Venous Duplex US Lower Ex t Bilateralon 12-14-2020 VL Venous Duplex US Lower Ext Bilateral Patient Name: JUAN JOSE BOWERS Ultrasound ACCESSION EXAM DATE/TIME PROCEDURE ORDERING PROVIDER [id number] 12/14/2020 16:25 EDT VL Venous Duplex US MD JESUS, YULIANA Sheffield Lower Ext Bilateral CPT code 61603 Reason For Exam (VL Venous Duplex US Lower Ext Bilateral) Other specified soft tissue disorders Report [facility] -- Lower Extremity Venous Duplex Report Patient DO KimB: 1985 Study 12/14/2020 Name: Juan Jose (35yrs) Date: Patient [id number] Age: 35 Account: [id number] ID: Gender: F Loc: BP: Ordering Physician: Yuliana Bailey Machine Rope Maker: Jazzmine Bryan RVT Interpreting Physician: Oscar Gonzalez M.D. -- Location: [address] -- Indications: Leg swelling, rash. -- [...] supine position. Images were obtained using a [employer] ([employer]) E9 vascular ultrasound machine. Ultrasound Report -- [...] + +c (more content not included)... Normal [employer] CBC Auto DifferentialOrdered By: Yuliana Bailey on 12-13-2020 Absolute Baso # 0.0 10*3/uL 0.0 - 0.2 10*3/uL [employer] Work Phone: Absolute Neut # 3.2 10*3/uL 1.8 - 7.0 10*3/uL [employer] Work Phone: Basophils/100 WBC (Bld) 0.8 % 0.0 - 2.0 % [employer] Work Phone: Eosinophils (Bld) [#/Vol] 0.1 10*3/uL 0.0 - 0.5 10*3/uL [employer] Work Phone: Eosinophils/100 WBC (Bld) 1.6 % 1.0 - 6.0 % [employer] Work Phone: Granulocytes/100 WBC (Bld) 56.7 % 40.0 - 80.0 % [employer] Work Phone: Hematocrit (Bld) [Volume fraction] 39.8 % 35.0 - 47.0 % [employer] Work Phone: Hemoglobin.gastrointesti nal spec 1 Ql (Stl) 13.3 g/dL 11.7 - 16.0 g/dL [employer] Work Phone: Interpretation and review of laboratory results Abnormal [employer] Work Phone: Lymphocytes (Bld) [#/Vol] 1.6 10*3/uL 1.0 - 4.3 10*3/uL [employer] Work Phone: Lymphocytes/100 WBC (Bld) 28.2 % 20.0 - 40.0 % [employer] Work Phone: MCH (RBC) [Entitic mass] 30.1 pg 26. 0 - 34.0 pg [employer] Work Phone: MCHC (RBC) [Mass/Vol] 33.5 % 32.0 - 36.0 % [employer] Work Phone: MCV (RBC) [Entitic vol] 89.7 fL 79.0 - 98.0 fL [employer] Work Phone: Monocytes (Bld) [#/Vol] 0.7 10*3/uL 0.0 - 0.8 10*3/uL [employer] Work Phone: Monocytes/100 WBC (Bld) 12.7 % High 2.0 - 10.0 % [employer] Work Phone: Platelet distribution width (Bld) [Ratio] 12.9 % 11.5 - 14.5 % [employer] Work Phone: Platelet mean volume (Bld) [Entitic vol] 6.7 fL Low 7.4 - 10.[address] [facility] Work [facility]: 1 Platelets (Bld) [#/Vol] 346 10*3/uL 140 - 440 10*3/[facility] Work Phone: 1 RBC (Bld) [#/Vol] 4.44 10*6/uL 3.80 - 5.2 0 10*6/uL [facility] Work Phone: 1) WBC (Bld) [#/Vol] 5.6 10*3/uL 3.6 - 10.7 10*3/uL [facility] Work Phone: 1 Test Performed by [facility], [address] , [place], [place] [address]: [address] [facility]: 1 Hemogram w/ Autodiffon 12-13 Abs Baso Cnt 0.0 10*3/uL Normal 0.0-0.2 [facility] Comment on above: Performed By: #### H EMDF #### [facility] [address] [place] [address] Abs Neutrophile Cnt 3.2 10*3/uL Normal 1.8-7.0 [facility] Comment on above: Performed By: #### H EMDF #### [facility] [address] [place] [address] Basophils/100 WBC (Bld) 0.8 % Normal 0.0-2.[address] [facility] Comment on above: Performed By: #### H EMDF #### [facility] [address] [place] [address] Eosinophils (Bld) [#/Vol] 0.1 10*3/uL Normal 0.0-0.5 [facility] Comment on above: Performed By: #### H EMDF #### [facility] [address] [facility] [place] [address] Eosinophils/100 WBC (Bld) 1.6 % Normal 1.0-6.0 [facility] Comment on above: Performed By: #### H EMDF #### [facility] [address] [place] [address] Erythrocyte distribution width (RBC) [Ratio] 12.9 % Normal 11.5-14.5 [facility] Comment on above: Performed By: #### H EMDF #### [facility] [address] [place] [address] Granulocytes/100 WBC (Bld) 56.7 % Normal 40.0-80.0 [facility] Comment on above: Performed By: #### H EMDF #### [facility] [address] [place] [address] Hematocrit (Bld) [Volume fraction] 39.8 % Normal 35.0-47.0 [facility] Comment on above: Performed By: #### H EMDF #### [facility] [address] [place] [address] Hemoglobin (Bld) [Mass/Vol] 13.3 g/dL Normal 11.7-16.0 [facility] Comment on above: Performed By: #### H EMDF #### [facility] [address] [place] [address] Lymphocytes (Bld) [#/Vol] 1.6 10*3/uL Normal 1.0-4.3 [facility] Comment on above: Performed By: #### H EMDF #### [facility] [address] [place] [address] Lymphocytes/100 WBC (Bld) 28.2 % Normal 20.0-40.0 [facility] Comment on above: Performed By: #### H EMDF #### [facility] [address] [place] [address] MCH (RBC) [Entitic mass] 30.1 pg Normal 26.0-34.0 [facility] Comment on above: Performed By: #### H EMDF #### [facility] [address] [place] [address] MCHC 33.5 % Normal 32.0-36.0 [facility] Comment on above: Performed By: #### H EMDF #### [facility] [address] [place] [address] MCV (RBC) [Entitic vol] 89.7 fL Normal 79.0-98.0 [facility] Comment on above: Performed By: #### H EMDF #### [facility] [address] [place] [address] Monocytes (Bld) [#/Vol] 0.7 10*3/uL Normal 0.0-0.8 [facility] Comment on above: Performed By: #### H EMDF #### [facility] [address] [place] [address] Monocytes/100 WBC (Bld) 12.7 % High 2.0-10.0 [facility] Comment on above: Performed By: #### H EMDF #### [facility] [address] [place] [address] Platelet mean volume (Bld) [Entitic vol] 6.7 fL Low 7.4-10.4 [facility] Comment on above: Performed By: #### H EMDF #### [facility] [address] [place] [address] Platelets (Bld) [#/Vol] 346 10*3/uL Normal 140-440 [facility] Comment on above: Performed By: #### H EMDF #### [facility] [address] [place] [address] RBC (Bld) [#/Vol] 4.44 10*6/uL Normal 3.80-5.20 [facility] Comment on above: Performed By: #### H EMDF #### [facility] [address] [place] [address] WBC (Bld) [#/Vol] 5.6 10*3/uL Normal 3.6-10.7 [facility] Comment on above: Performed By: #### H EMDF #### [facility] [address] [place] [address] XR FOOT RIGHT 3 VIEWSon XR FOOT RIGHT 3 VIEWS EXAM: XR FOOT RIGH T 3 VIEWS HISTORY: Foot injury. COMPARISON: None available. FINDINGS: 3 views of the right foot were obtained. AP, lateral and oblique views were performed. No acute fracture. Joint alignment is anatomic. Joint spaces are preserved. Soft tissues are within normal limits. IMPRESSION: No acute bony abnormality. Normal [facility] IMPRESSION: No acute bony abnormality. RADIOLOGY EXAM: [...] 25.18 kg/m2 Genie Rodas MD Work Phone: [facility] 06-02-2024 08:48-0400 Body weight 70.76 kg Genie Rodas MD Work Phone: [facility] 05-22-2024 20:42-0400 Body temperature 98.3 [degF] Dr. Alex Katz DO Work Phone: [facility] 05-22-2024 20:42-0400 Diastolic blood pressure 78 mm[Hg] Dr. Alex Katz DO Work Phone: [facility] 05-22-2024 20:42-0400 Heart rate 77 /min Dr. Alex Katz DO Work Phone: [facility] 05-22-2024 20:42-0400 Respiratory rate 16 /min Dr. Alex Katz DO Work Phone: [facility] 05-22-2024 20:42-0400 SaO2% (BldA) [Mass fraction] 98 % Dr. Alex Katz DO Work Phone: [facility] 05-22-2024 20:42-0400 Systolic blood pressure 110 mm[Hg] Dr. Alex Katz DO Work Phone: [facility] 05-22-2024 18:53-0400 Body height 162.[address] Alex Katz DO Work Phone: [facility] 05-22-2024 18:53-0400 Body mass index (BMI) [Ratio] 26.9 kg/m2 Dr. Alex Katz DO Work Phone: [facility] 05-22-2024 18:53-0400 Body weight 71.[address] Alex Katz DO Work Phone: [facility] 05-06-2024 08:25-0400 Body height 167.6 cm Rosa Isela Lanza MD Work Phone: [facility] 05-06-2024 08:25-0400 Body mass index (BMI) [Ratio] 24.69 kg/m2 Rosa Isela Lanza MD Work Phone: [phone] 05-06-2024 08:25-0400 Body weight 69.4 kg Rosa Isela Lanza MD Work Phone: [facility] 05-06-2024 08:25-0400 Diastolic blood pressure 72 mm[Hg] Rosa Isela Lanza MD Work Phone: [facility] 05-06-2024 08:25-0400 Heart rate 88 /min Rosa Isela Lanza MD Work Phone: [facility] 05-06-2024 08:25-0400 Systolic blood pressure 124 mm[Hg] Rosa Isela Lanza MD Work Phone: [facility] 04-01-2024 11:28-0500 Body height 167.6 cm Rosa Isela Lanza MD Work Phone: [facility] 04-01-2024 11:28-0500 Body mass index (BMI) [Ratio] 26.63 kg/m2 Rosa Isela Lanza MD Work Phone: [facility] 04-01-2024 11:28-0500 Body weight 74.84 kg Rosa Isela Lanza MD Work Phone: [facility] 04-01-2024 11:28-0500 Diastolic blood pressure 74 mm[Hg] Rosa Isela Lanza MD Work Phone: [facility] 04-01-2024 11:28-0500 Heart rate 76 /min Rosa Isela Lanza MD Work Phone: [facility] 04-01-2024 11:28-0500 Systolic blood pressure 124 mm[Hg] Rosa Isela Lanza MD Work Phone: [facility] 08-25-2023 13:25-0400 Body height 167.6 cm Rosa Isela Lanza MD Work Phone: [facility] 08-25-2023 13:25-0400 Body mass index (BMI) [Ratio] 25.34 kg/m2 Rosa Isela Lanza MD Work Phone: [facility] 08-25-2023 13:25-0400 Body weight 71.22 kg Rosa Isela Lanza MD Work Phone: [facility] 08-25-2023 13:25-0400 Diastolic blood pressure 70 mm[Hg] Rosa Isela Lanza MD Work Phone: [facility] 08-25-2023 13:25-0400 Heart rate 76 /min Rosa Isela Lanza MD Work Phone: [facility] 08-25-2023 13:25-0400 Systolic blood pressure 120 mm[Hg] Rosa Isela Lanza MD Work Phone: [facility] 08-03-2023 10:10-0400 Body temperature 97.3 [degF] Meir Farrell MD Work Phone: [facility] [employer] 08-03-2023 10:10-0400 Body weight 70.31 kg Meir Farrell MD Work Phone: [facility] [employer] 08-03-2023 10:10-0400 Diastolic blood pressure 75 mm[Hg] Meir Farrell MD Work Phone: [facility] [employer] 08-03-2023 10:10-0400 Heart rate 86 /min Meir Farrell MD Work Phone: [facility] 08-03-2023 10:10-0400 Respiratory rate 14 /min Meir Farrell MD Work Phone: [facility] 08-03-2023 10:10-0400 SaO2% (BldA) [Mass fraction] 100 % Meir Farrell MD Work Phone: [facility] 08-03-2023 10:10-0400 Systolic blood pressure 125 mm[Hg] Meir Farrell MD Work Phone: [facility] 09-15-2022 09:55-0400 Body height 167.6 cm Rosa Isela Lanza MD Work Phone: [facility] 09-15-2022 09:55-0400 Body mass index (BMI) [Ratio] 27.02 kg/m2 Rosa Isela Lanza MD Work Phone: [facility] 09-15-2022 09:55-0400 Body weight 75.93 kg Rosa Isela Lanza MD Work Phone: [facility] 09-15-2022 09:55-0400 Diastolic blood pressure 64 mm[Hg] Rosa Isela Lanza MD Work Phone: [facility] 09-15-2022 09:55-0400 Heart rate 76 /min Rosa Isela Lanza MD Work Phone: [facility] 09-15-2022 09:55-0400 Systolic blood pressure 118 mm[Hg] Rosa Isela Lanza MD Work Phone: [facility] 08-14-2022 10:25-0400 Body temperature 98.4 [degF] DULCE MARIA Zuniga DPM Work Phone: [facility] 08-14-2022 10:25-0400 Diastolic blood pressure 76 mm[Hg] DULCE MARIA Zuniga DPM Work Phone: [facility] 08-14-2022 10:25-0400 Heart rate 76 /min CJ Hassmann DPM Work Phone: [facility] 08-14-2022 10:25-0400 Systolic blood pressure 118 mm[Hg] CJ Hassmann DPM Work Phone: [facility] 07-08-2022 14:00-0400 Body temperature 98.29 [degF] CJ Hassmann DPM Work Phone: [facility] 07-08-2022 14:00-0400 Diastolic blood pressure 80 mm[Hg] CJ Hassmann DPM Work Phone: [facility] 07-08-2022 14:00-0400 Heart rate 82 /min CJ Hassmann DPM Work Phone: [facility] 07-08-2022 14:00-0400 Systolic blood pressure 131 mm[Hg] CJ Hassmann DPM Work Phone: [facility] 01-28-2022 16:13-0500 Body temperature 97.7 [degF] Baudilio Gonzalesman DPM Work Phone: [facility] 01-28-2022 16:13-0500 Diastolic blood pressure 79 mm[Hg] Baudilio Gonzalesman DPM Work Phone: [facility] 01-28-2022 16:13-0500 Heart rate 81 /min Baudilio Gonzalesman DPM Work Phone: [facility] 01-28-2022 16:13-0500 Systolic blood pressure 132 mm[Hg] Baudilio Cervantesmerman DPM Work Phone: [facility] 01-14-2022 16:04-0500 Body temperature 97.9 [degF] Baudilio Cervantesmerman DPM Work Phone: [facility] 01-14-2022 16:04-0500 Diastolic blood pressure 72 mm[Hg] Baudilioyvette CervantesField DPM Work Phone: [facility] 01-14-2022 16:04-0500 Heart rate 76 /min Baudilio Field DPM Work Phone: [facility] 01-14-2022 16:04-0500 Systolic blood pressure 121 mm[Hg] Baudilio Field DPM Work Phone: [facility] 01-08-2022 14:13-0500 Diastolic blood pressure 80 mm[Hg] Dr. Alex Katz Work Phone: [facility] Work Phone: 01-08-2022 14:13-0500 Systolic blood pressure 115 mm[Hg] Dr. Alex Katz Work Phone: [facility] Work Phone: 01-08-2022 14:05-0500 Body height 162.[address] Alex Katz Work Phone: [facility] Work Phone: 01-08-2022 14:03-0500 Body mass index (BMI) [Ratio] 30.4 kg/m2 Dr. Alex Katz Work Phone: [facility] Work Phone: 01-08-2022 14:03-0500 Body weight 80.[address] Alex Katz Work Phone: [facility] Work Phone: 12-24-2021 11:43-0500 Body height 167.64 cm Rosa Isela Lanza Work Phone: [facility] Work Phone: 12-24-2021 11:43-0500 Body mass index (BMI) [Ratio] 29.08 kg/m2 Rosa Isela Lanza Work Phone: [facility] Work Phone: 12-24-2021 11:43-0500 Body surface area Derived from formula 1.91 m2 Rosa Isela Lanza Work Phone: [facility] Work Phone: 12-24-2021 11:43-0500 Body weight 81.73 kg Rosa Isela Lanza Work Phone: [facility] Work Phone: 12-24-2021 11:43-0500 Diastolic blood pressure 80 mm[Hg] Rosa Isela Lanza Work Phone: [facility] Work Phone: 12-24-2021 11:43-0500 Heart rate 80 /min Rosa Isela Lanza Work Phone: [facility] Work Phone: 12-24-2021 11:43-0500 Systolic blood pressure 120 mm[Hg] Rosa Isela Lanza Work Phone: [facility] Work Phone: 12-03-2021 08:44-0400 Body temperature 97.1 [degF] Rosa Isela Lanza Work Phone: [facility] 300 Work Phone: 11-26-2021 08:31-0400 Body height 167.64 cm Rosa Isela Lanza Work Phone: [facility] 300 Work Phone: 11-26-2021 08:31-0400 Body mass index (BMI) [Ratio] 28.41 kg/m2 Rosa Isela Lanza Work Phone: [facility] 300 Work Phone: 11-26-2021 08:31-0400 Body surface area Derived from formula 1.89 m2 Rosa Isela Lanza Work Phone: [facility] 300 Work Phone: 11-26-2021 08:31-0400 Body weight 79.83 kg Rosa Isela Lanza Work Phone: [facility] 300 Work Phone: 11-08-2021 11:32-0400 Body height 167.64 cm Rosa Isela Lanza Work Phone: [facility] 300 Work Phone: 11-08-2021 11:32-0400 Body mass index (BMI) [Ratio] 28.41 kg/m2 Rosa Isela Lanza Work Phone: [facility] 300 Work Phone: 11-08-2021 11:32-0400 Body surface area Derived from formula 1.89 m2 Rosa Isela Lanza Work Phone: [facility] 300 Work Phone: 11-08-2021 11:32-0400 Body temperature 97.5 [degF] Rosa Isela Lanza Work Phone: [facility] 300 Work Phone: 11-08-2021 11:32-0400 Body weight 79.83 kg Rosa Isela Lanza Work Phone: [facility] 300 Work Phone: 09-27-2021 09:31-0400 Body height 167.64 cm Rosa Isela Lanza Work Phone: [facility] 300 Work Phone: 09-27-2021 09:31-0400 Body mass index (BMI) [Ratio] 28.45 kg/m2 Rosa Isela Lanza Work Phone: [facility] 300 Work Phone: 09-27-2021 09:31-0400 Body surface area Derived from formula 1.9 m2 Rosa Isela Lanza Work Phone: [facility] 300 Work Phone: 09-27-2021 09:31-0400 Body temperature 97.5 [degF] Rosa Isela Lanza Work Phone: [facility] 300 Work Phone: 09-27-2021 09:31-0400 Body weight 79.95 kg Rosa Isela Lanza Work Phone: [facility] 300 Work Phone: 06-05-2021 10:45-0400 Body height 167.64 cm Rosa Isela Lanza Work Phone: [facility] 205 DO Work Phone: 06-05-2021 10:45-0400 Body mass index (BMI) [Ratio] 29.21 kg/m2 Rosa Isela Lanza Work Phone: [facility] 205 DO Work Phone: 06-05-2021 10:45-0400 Body surface area Derived from formula 1.92 m2 Rosa Isela Lanza Work Phone: [facility] 205 DO Work Phone: 06-05-2021 10:45-0400 Body weight 82.1 kg Rosa Isela Lanza Work Phone: [facility] 205 DO Work Phone: 06-05-2021 10:45-0400 Diastolic blood pressure 78 mm[Hg] Rosa Isela Lanza Work Phone: [facility] 205 DO Work Phone: 06-05-2021 10:45-0400 Heart rate 80 /min Rosa Isela Lanza Work Phone: [facility] 205 DO Work Phone: 06-05-2021 10:45-0400 Systolic blood pressure 124 mm[Hg] Rosa Isela Lanza [facility] DO Work Phone: 12-13-2020 21:01-0400 [...] 13:16-0500 BMI (Body Mass Index) 23.4 kg/m2 [facility] Work Phone: 03-16-2018 13:16-0500 Height 167.6 cm [facility] Work Phone: 03-16-2018 13:16-0500 Weight 65.77 kg [facility] Work Phone: 03-16-2018 13:15-0500 Body Temperature 98.71 [degF] [facility] Work Phone: 03-16-2018 13:15-0500 BP Diastolic 64 mm[Hg] [facility] Work Phone: 03-16-2018 13:15-0500 BP Systolic 130 mm[Hg] [facility] Work Phone: 03-16-2018 13:15-0500 Pulse (Heart Rate) 74 /min [facility] Work Phone: 03-16-2018 13:15-0500 Pulse Oximetry 99 % [facility] Work Phone: 03-16-2018 13:15-0500 Respiratory Rate 18 /min [facility] Work Phone: Encounters Encounter Date Encounter Type Care Provider Facility Start: 06-02-2024 End: 06-02-2024 Office outpatient new 45 minutes Genie Rodas MD Work Phone: [facility] Comment on above: Bilateral elbow join t pain Start: 06-02-2024 End: 06-02-2024 Subsequent hospital visit by physician [facility] Comment on above: Arrived Bilateral elbow join t pain Start: 06-02-2024 End: 06-02-2024 ambulatory GENIE RODAS [facility] Start: 05-22-2024 End: 05-22-2024 Emergency department patient visit Dr. Alex Katz DO Work Phone: -Emergency Department Work Phone: Start: 05-06-2024 End: 05-06-2024 ambulatory ROSA ISELA [facility] Ambulatory Start: 05-06-2024 End: 05-06-2024 Office outpatient visit 15 minutes Rosa Isela Lanza MD Work Phone: [facility] Comment on above: Bilateral elbow join t pain (Primary Dx) Start: 04-01-2024 End: 04-01-2024 ambulatory [facility] Ambulatory Start: 04-01-2024 End: 04-01-2024 Office outpatient visit 15 minutes Rosa Isela Lanza MD Work Phone: [facility] Comment on above: Bilateral elbow join t pain (Primary Dx) Start: 10-08-2023 Encounter for gynecological examination (general) (routine) without abnormal findings Raina Singer [facility] Start: 10-08-2023 End: 10-08-2023 ambulatory Alex Katz Facility:[facility] Start: 08-25-2023 End: 08-25-2023 Office outpatient visit 15 minutes Rosa Isela Lanza MD Work Phone: [facility] Comment on above: Rash and nonspecific skin eruption (Primary Dx) Start: 08-25-2023 End: 08-25-2023 ambulatory ROSA ISELA Diaz [facility] Ambulatory Start: 08-03-2023 End: 08-03-2023 Subsequent hospital visit by physician [facility] Radiology Comment on above: Arrived Start: 08-03-2023 End: 08-03-2023 Emergency department patient visit Meir Farrell MD Work Phone: [facility] ED Comment on above: Contusion of right a nkle, initial encounter (Primary Dx) Start: 01-26-2023 ambulatory MARILYNN ROSALES [facility] Start: 09-15-2022 End: 09-15-2022 Office outpatient visit 15 minutes Rosa Isela Lanza MD Work Phone: [facility] Comment on above: Atypical nevus (Prim jaime Dx) Start: 08-14-2022 End: 08-14-2022 ambulatory LOS EBANOS RAGHAVENDRA [facility] Ambulatory Start: 08-14-2022 End: 08-14-2022 Office outpatient visit 10 minutes DULCE MARIA Zuniga DPM Work Phone: [facility] Comment on above: Plantar fasciitis (P rimary Dx); Foot pain, right Start: 07-08-2022 End: 07-12-2022 ambulatory LOS EBANOS RAGHAVENDRA [facility] Ambulatory Start: 07-08-2022 End: 07-08-2022 Office outpatient visit 15 minutes DULCE MARIA Zuniga DPM Work Phone: [facility] Comment on above: Plantar fasciitis (P rimary Dx); Heel spur, right; Foot pain, right Start: 01-28-2022 End: 01-28-2022 ambulatory BAUDILIO FIELD [facility] Ambulatory Start: 01-28-2022 End: 01-28-2022 Patient encounter procedure Baudilio Field DPM Work Phone: [facility] Podiatry Comment on above: Plantar fasciitis, b ilateral (Primary Dx) Start: 01-14-2022 End: 01-18-2022 ambulatory BAUDILIO FIELD [facility] Ambulatory Start: 01-14-2022 End: 01-14-2022 Office outpatient new 30 minutes Baudilio Field DPM Work Phone: [facility] Comment on above: Foot pain, bilateral (Primary Dx); Heel spur, right; Heel spur, left; Plantar fasciitis, bilateral Start: 01-13-2022 End: 01-13-[address] Alex Katz Work Phone: [facility] Work Phone: Start: 01-13-2022 End: 01-13-[address] Alex Katz Work Phone: [facility]-Ultrasound, [facility] Start: 01-09-2022 End: 01-09-[address] Alex Katz Work Phone: [facility] Work Phone: Start: 01-09-2022 End: 01-09-[address] Alex Katz Work Phone: [facility]-Laboratory, [facility] Pavilion Start: 01-08-2022 End: 01-08-[address] Alex Katz Work Phone: [facility] Start: 12-26-2021 Chart Update Rosa Isela Lanza Work Phone: [facility] Work Phone: Start: 12-26-2021 Transcribe Orders Nadine August MA [facility] Comment on above: Right foot pain (Thea franci Dx) Start: 12-25-2021 AUDIT Rosa Isela Lanza Work Phone: [facility] Work Phone: Start: 12-24-2021 Office outpatient vi sit 25 minutes Rosa Isela Lanza Work Phone: [facility] Work Phone: Start: 12-24-[address] ROSA ISELA LANZA Facility:[id number] Start: 12-03-2021 ambulatory Manoj Ojeda Fac ility:[id number] Start: 12-03-2021 Postop follow up vis it related to original px Rosa Isela Lanza Work Phone: [facility] 300 Work Phone: Start: 11-26-2021 ambulatory Manoj Ojeda Fac ility:[id number] Start: 11-26-2021 Patient encounter procedure Rosa Isela Lanza Work Phone: [facility] 300 Work Phone: Start: 11-26-2021 Postop follow up vis it related to original px Rosa Isela Lanza Work Phone: [facility] 300 Work Phone: Start: 11-13-2021 End: 11-13-[address] Manoj Ojeda Facility:[id number] Start: 11-08-2021 ambulatory Manoj Ojeda Fac ility:[id number] Start: 11-08-2021 Patient encounter procedure Rosa Isela Lanza Work Phone: [facility] 300 Work Phone: Start: 11-08-2021 Postop follow up vis it related to original px Rosa Isela Lanza Work Phone: [facility] 300 Work Phone: Start: 10-28-2021 End: 10-28-[address] Manoj Ojeda Facility:[id number] Start: 09-27-2021 Office outpatient ne w 30 minutes Rosa Isela Lanza Work Phone: [facility] 300 Work Phone: Start: 09-27-2021 Patient encounter procedure Rosa Isela Lanza Work Phone: [facility] 300 Work Phone: Start: 09-27-[address] ROSA ISELA LANZA Facility:[id number] Start: 08-15-2021 AUDIT Rosa Isela Lanza Work Phone: [facility] Work Phone: Start: 06-06-2021 Transcribe Orders Rosa Isela Camara MD Work Phone: [facility], Neuroscience Comment on above: Numbness and tinglin g of hand (Primary Dx) Start: 06-05-2021 Office outpatient vi sit 25 minutes Rosa Isela Lanza Work Phone: [facility] 205 DO Work Phone: Start: 06-05-[address] ROSA ISELA LANZA Facility:[id number] Start: 12-13-2020 End: 12-13-2020 Emergency department patient visit Yuliana Bailey MD Work Phone: [facility] Comment on above: Leg swelling (Primar y Dx); Rash Start: 03-16-2018 End: 03-16-2018 Emergency department patient visit [facility] Start: 03-16-2018 End: 03-16-2018 Emergency department patient visit [facility] Procedures Date Procedure Procedure Detail [...] or older (1 - 1-dose 60+ series) [facility] Start: 09-25-2033 Zoster Vaccines (1 o f 2) Zoster Vaccines (1 of 2) [facility] Start: 09-11-2028 DTaP/Tdap/Td Vaccine s (3 - Td or Tdap) DTaP/Tdap/Td Vaccines (3 - Td or Tdap) [facility] Start: 09-11-2028 Tetanus vaccination Tetanus: Every 1 0yrs [facility] Start: 10-10-2024 Influenza vaccination Influenz a Vaccine (Season Ended) [facility] Start: 07-28-2024 End: 07-28-2024 Patient encounter procedure 07/28/2024 8:30 AM EDT Office Visit [facility] [address] [place] [id number] Genie Rodas MD [address] [place] [address] [facility] Start: 06-11-2024 Diabetes mellitus screening Diabetes Screening [facility] Start: 05-23-2024 End: 05-23-2025 XR Elbow - bilateral 3 Views XR elbow 3+ views bilateral Imaging Routine Bilateral elbow joint pain Expected: 05/23/2024 (Approximate), Expires: 05/23/2025 [facility] Service Area Work Phone: Comment on above: Expected: 05/23/2024 (Approximate), Expires: 05/23/2025 Start: 05-22-2024 [facility] Start: 10-11-2023 COVID-19 Vaccine ( season) COVID-19 Vaccine ( season) [facility] Start: 10-11-2023 Influenza vaccination Influenza Vacc ine (#1) [facility] Start: 2023 Screening for malign ant neoplasm of breast Mammogram [facility] Start: 12-25-2022 Thyroid stimulating hormone measurement TSH Level [facility] Start: 10-10-2022 COVID-19 Vaccine ( season) COVID-19 Vaccine () [email or web address] Start: 10-10-2022 Influenza vaccination [facility] Start: 08-14-2022 End: 08-14-2022 Patient encounter procedure 08/14/2022 10:00 AM EDT Office Visit [facility] [address] [place] [address] DULCE MARIA Zuniga, DPM [address] [place] [address] [facility] Start: 01-28-2022 End: 01-28-2022 Patient encounter procedure 01/28/2022 Office Visit Podiatry Baudilio Field, MARIS [address] [place] [address] [facility] Start: 01-09-2022 17-Hydroxyprogestero ne [Mass/volume] in Serum or Plasma [facility] Work Phone: Start: 12-03-2021 POV, Provider: Manoj Ojeda, Status: Pen, Time: 8:30 AM POV, Provider: Manoj Ojeda, Status: Pen, Time: 8:30 AM [facility] 300 Work Phone: Start: 11-13-2021 [facility], Provider: Manoj Ojeda, Status: Pen, Time: 10:30 AM [facility], Provider: Manoj Ojeda, Status: Pen, Time: 10:30 AM [facility] 300 Work Phone: Start: 11-08-2021 POV, Provider: Manoj Ojeda, Status: Pen, Time: 11:00 AM POV, Provider: Manoj Ojeda, Status: Pen, Time: 11:00 AM [facility] 300 Work Phone: Start: 10-28-2021 [facility], Provider: Manoj Ojeda, Status: Pen, Time: 11:00 AM [facility], Provider: Manoj Ojeda, Status: Pen, Time: 11:00 AM [facility] 300 Work Phone: Start: 10-10-2021 Influenza vaccination [facility] Start: 09-27-2021 NPV, Provider: Manoj Ojeda, Status: Pen, Time: 9:30 AM NPV, Provider: Manoj Ojeda, Status: Pen, Time: 9:30 AM [facility] Work Phone: Start: 07-29-2021 End: 07-29-2021 Patient encounter procedure 07/29/2021 Procedure visit Neurology Rosa Isela Lanza MD [address] [place] [address] Sohan Christopher MD [address] [address] [facility] Start: 02-06-2021 COVID-19 Vaccine (3 - Booster for Pfizer series) COVID-19 Vaccine (3 - Booster for Pfizer series) [facility] Start: 02-06-2021 COVID-19 Vaccine (3 - Pfizer series) COVID-19 Vaccine (3 - Pfizer series) [facility] Start: 12-14-2020 End: 12-27-2020 VL DUP LOWER EXTREMITY VENOUS BILATERAL VL DUP LOWER EXTREMITY VENOUS BILATERAL Imaging STAT Leg swelling Rash Expected: 12/14/2020, Expires: 12/27/2020 [facility] Work Phone: Comment on above: Expected: 12/14/2020 , Expires: 12/27/2020 Start: 10-10-2020 Influenza vaccination Flu vaccine (# 1) [facility] Work Phone: Start: 08-18-2019 IPV Vaccines (3 of 3 - Adult catch-up series) IPV Vaccines (3 of 3 - Adult catch-up series) [facility] Start: 05-25-2018 DTaP/Tdap/Td vaccine (2 - Td or Tdap) DTaP/Tdap/Td vaccine (2 - Td or Tdap) [facility] Work Phone: Start: 10-10-2017 Influenza vaccination INFLUENZA VACC INE (#1) [facility] Work Phone: Start: 09-25-2013 Screening for malign ant neoplasm of cervix [facility] Start: 01-09-2013 MMR Vaccines (1 of 1 - Standard series) MMR Vaccines (1 of 1 - Standard series) [facility] Start: 01-09-2013 Varicella vaccination Varicell a Vaccines (1 of 2 - 13+ 2-dose series) [facility] Start: 01-09-2013 Varicella vaccine (1 of 2 - 2-dose childhood series) Varicella vaccine (1 of 2 - 2-dose childhood series) [facility] Work Phone: Start: 11-25-2008 MMR Vaccines (1 of 1 - Standard series) MMR Vaccines (1 of 1 - Standard series) [facility] Start: 11-25-2008 Varicella vaccination Varicell a Vaccines (1 of 2 - 13+ 2-dose series) [facility] Start: 09-25-2005 DTaP/Tdap/Td Vaccine s (1 - Tdap) DTaP/Tdap/Td Vaccines (1 - Tdap) [facility] Start: 09-25-2004 Screening for malign ant neoplasm of cervix [facility] Start: 09-25-2002 Hepatitis B Vaccines (1 of 3 - 19+ 3-dose series) Hepatitis B Vaccines (1 of 3 - 19+ 3-dose series) [facility] Start: 09-25-2002 Third diphtheria, tetanus and acellular pertussis (DTaP) vaccination TDAP (ADULT) [facility] Work Phone: Start: 09-25-2001 Hepatitis C screening Hepatitis C Sc reening [facility] Start: 09-25-2001 Tetanus vaccination TETANUS [facility] Work Phone: Start: 09-25-1998 HIV screening [facility] Start: 09-25-1996 HIV screening HIV SCREENING DISCUSSION [facility] Work Phone: Start: 09-25-1996 Varicella vaccination Varicell a Vaccines (1 of 2 - 13+ 2-dose series) [facility] Start: 1995 COVID-19 Vaccine (1) COVID-19 Vaccin e (1) [facility] Work Phone: Start: 1995 Depression screening using PHQ-9 (Patient Health Questionnaire 9) score [facility] Start: 09-25-1988 COVID-19 Vaccine (1) COVID-19 Vaccin e (1) [facility] Start: 09-25-1986 History and physical examination, annual for health maintenance Wellness Visit [facility] Start: 09-25-1984 MMR Vaccines (1 of 1 - Standard series) MMR Vaccines (1 of 1 - Standard series) [facility] Start: 09-25-1984 Varicella vaccination Varicell a Vaccines (1 of 2 - 2-dose childhood series) [facility] Start: 03-28-1984 COVID-19 Vaccine (#1) COVID-19 Vacci ne (#1) [facility] Start: 1983 Hepatitis B Vaccines (1 of 3 - 3-dose series) Hepatitis B Vaccines (1 of 3 - 3-dose series) [facility] Start: 1983 Hepatitis C screening Hepatitis C sc reen [facility] Work Phone: Start: 1983 HIV screening HIV Screening [facility] Start: 1983 Lipid panel Lipid Panel [facility] Start: 1983 Screening for malign ant neoplasm of cervix Pap Smear [facility] Start: 1983 Tetanus vaccination Tetanus: Every 1 0yrs [facility] Start: 1983 Thyroid stimulating hormone measurement TSH Level [facility] Start: 1983 Yearly Adult Physical Yearly Adult P hysical [facility] 17-Hydroxyprogestero ne [Mass/volume] in Serum or Plasma [facility] Work Phone: Patient Education ED Myalgias ED Viral Syndrome (Adult) [facility] Work Phone: Patient referral [facility] Work Phone: End: 06-02-2024 XR Elbow - bilateral 3 Views [facility] Work Phone: Comment on above: Once for 1 Occurrenc es starting 06/02/2024 until 06/02/2024 Immunizations Immunization Date Immunization Notes Care Provider Fa [facility] 11-22-2022 influenza virus vaccine, unspecified formulation Rosa Isela Lanza MD Work Phone: [facility] Work Phone: 11-10-2022 influenza virus vaccine, unspecified formulation Rosa Isela Lanza MD Work Phone: [facility] Work Phone: 11-26-2021 influenza virus vaccine, unspecified formulation Rosa Isela Lanza MD Work Phone: [facility] Work Phone: 12-17-2020 influenza, injectabl e, quadrivalent, preservative free Rosa Isela Lanza Work Phone: [facility] 205 DO Work Phone: 12-25-2019 influenza, injectabl e, quadrivalent, preservative free Rosa Isela Lanza Work Phone: [facility] 205 DO Work Phone: 02-17-2019 poliovirus vaccine, unspecified formulation Meir Farrell MD Work Phone: [facility] 11-26-2016 influenza, injectabl e, quadrivalent, preservative free Rosa Isela Lanza Work Phone: [facility] 205 DO Work Phone: 11-09-2014 influenza, seasonal, injectable Rosa Isela Lanza Work Phone: [facility] 205 DO Work Phone: Payers Date Payer Category Payer Self-pay [id number] 2022 [employer] ( and others) [id number]. 3.6786 71.315 2018 () 1.2.840.11 4350.1.13.647.2.7.9.6980 [id number] 2018 [employer] ( and others) [id number] 2017 [employer] ( and others) [id number] 1.2.840.146251.1.13.239.2.7.3.6786 71.315 2017 Unknown 1983 Unknown [id number] 2.840.1.695886.3.579.2.356 1985 Unknown [id number] 2.840.1.213441.3.579.2.356 1983 Unknown [id number] 2.840.1.588089.3.579.2.356 1983 Unknown [id number] 2.16840.1.189021.3.579.2.356 1983 Unknown [id number] 2.16840.1.420262.3.579.2.356 1983 Unknown [id number] 2.840.1.341922.3.579.2.356 1983 Unknown [id number] 2.16.840.1.078593.3.579.2.1069 1983 Unknown [id number] 2.16.840.1.044101.3.579.2.1069 1983 Unknown [id number] 2.16.840.1.952993.3.579.2.903 1983 Unknown [id number] 2.840.1.673453.3.579.2. 1983 Unknown [id number] 2.840.1.698869.3.579.2. 1983 Unknown [id number] 2.840.1.152822.3.579.2.90 1983 Unknown [id number] 2.840.1.942526.3.579.2. 1983 Unknown [id number] 2.840.1.442215.3.579.2. 1983 Unknown [id number] 2.840.1.714744.3.579.2. 1983 Unknown [id number] 2.840.1.288042.3.579.2.3 1983 Unknown [id number] 2.840.1.579585.3.579.2.1244 1983 Unknown [id number] 2.840.1.601409.3.579.2.1243 1983 Unknown [id number] 2.840.1.594413.3.579.2.1243 1983 Unknown [id number] 2.840.1.898322.3.579.2.1243 1983 Unknown [id number] 2.840.1.916442.3.579.2.1243 1983 Unknown [id number] 2.16840.1.269282.3.579.2.1243 Unknown [id number] 2.16.840.1.101909.3.579.2.462 Unknown [id number] 2.16.840.1.656342.3.579.2.462 Social History Date Type Detail Facility Start: 03-16-2018 End: 09-15-2022 Tobacco smoking status NHIS Never smoker [facility] Work Phone: Start: 1985 Sex Assigned At Not on file [facility] Work Phone: Start: 12-13-2020 End: 09-15-2022 Tobacco use and exposure Never used [facility] Start: 12-13-2020 End: 08-03-2023 Alcohol intake Current non-drinker of alcohol (finding) [facility] Work Phone: Start: 08-30-2018 History SDOH Education 13 [facility] Work Phone: Start: 08-30-2018 History SDOH Financial 5 [facility] Work Phone: Start: 08-30-2018 History SDOH Food Worry 1 [facility] Work Phone: Start: 08-30-2018 History SDOH Transpo rt Med 2 [facility] Work Phone: Start: 01-04-2022 End: 06-02-2024 Exposure to SARS-CoV-2 (event) Not sure [facility] Start: 01-28-2022 End: 06-02-2024 Never a smoker Never a smoker [facility] 205 DO Work Phone: Start: 01-08-2022 Tobacco smoking stat us NHIS Tobacco smoking consumption unknown [facility] Start: 01-14-2022 End: 08-14-2022 Alcohol intake Lifetime non-drinker (finding) [facility] Start: 1985 Sex Assigned At Female [facility] Start: 01-28-2022 End: 06-02-2024 Tobacco use panel [facility] Start: 09-15-2022 End: 06-02-2024 Alcohol intake Ex-drinker (finding) [facility] Work Phone: Start: 05-22-2024 Sex Female (finding) [facility] Mental Status Date Assessment Result Facility 05-22-2024 Cognitive function Level Of Cons ciousness Awake;Alert;Appropriate;Follow s Commands [facility] Work Phone: Clinical Notes 07-22-2021 to [...] if she does not make bass progress. [facility] Work Phone: 06-02-2024 Miscellaneous Notes Associated Problem(s): [...] make bass progress. documented in this encounter [facility] Work Phone: 06-02-2024 History of Present illness [...] joint effusion. 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 [...] joint effusion. 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 IMAGE RESULTS: Point of Care Ultrasound These images are not reportable by radiology and will not be interpreted by Radiologists. ULTRASOUND Site: Left elbow Indication: ELBOW PAIN Technique: B-Mode Ultrasound Examination performed using 8-13 MHz linear transducer with [employer] STUDY TYPE: 1. ULTRASOUND EXTREMITY INCLUDING [...] performed using 8-13 MHz linear transducer with [employer] STUDY TYPE: 1. 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 FAMILY HISTORY Family History Problem Relation Name Age of Onset ADD / ADHD Sister Other ([id number]) Mother attention disorder ADD / ADHD Sister SOCIAL HISTORY Social History Socioeconomic History Marital status: Tobacco Use Smoking status: Never Smokeless tobacco: Never Vaping Use Vaping status: Never Used Substance and Sexual Activity Alcohol use: No Drug use: No Social Determinants of Health Financial Resource Strain: Low Risk (08/30/2018) Received from [facility] Overall Financial Resource Strain (CARDIA) Difficulty of Paying Living Expenses: Not hard at all Food Insecurity: No Food Insecurity (08/30/2018) Received from [facility] Hunger Vital Sign Worried About Running Out of Food in the Last Year: Never true Ran Out of Food in the Last Year: Never true Transportation Needs: No Transportation Needs (08/30/2018) [facility] Lack of Transportation (Medical): [...] TO: Alex Katz DO [address] [facility] [address] as previously scheduled DISCHARGE MEDICATIONS: New [...] ibuprofen this AM. documented in this encounter [facility] 08-03-2023 Emergency department Triage note Patient arrived with steady gait to room 3. Patient states she was cutting down tree limb yesterday when it fell on her right ankle. Patient has abrasion on right ankle with some redness. Patient endorses limited ROM with right foot but is able to bear weight. Last dose of ibuprofen this AM. 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 FAMILY HISTORY Family History Problem Relation Name Age of Onset ADD / ADHD Sister Other ([id number]) Mother attention disorder ADD / ADHD Sister SOCIAL HISTORY Social History Socioeconomic History Marital status: Tobacco Use Smoking status: Never Smokeless tobacco: Never Vaping Use Vaping status: Never Used Substance and Sexual Activity Alcohol use: No Drug use: No Social Determinants of Health Financial Resource Strain: Low Risk (08/30/2018) Received from [facility] Overall Financial Resource Strain (CARDIA) Difficulty of Paying Living Expenses: Not hard at all Food Insecurity: No Food Insecurity (08/30/2018) Received from [facility] Hunger Vital Sign Worried About Running Out of Food in the Last Year: Never true Ran Out of Food in the Last Year: Never true Transportation Needs: No Transportation Needs (08/30/2018) Received from [facility] [place] - Transportation Lack of Transportation [...] AM PATIENT REFERRED TO: Alex Katz DO [address] [place] [phone] as previously scheduled DISCHARGE MEDICATIONS: New Prescriptions [...] Medicine Provider Meir Farrell MD 08/03/23 1131 [facility] 09-15-2022 History of Present illness Narrative Would [...] Isela Lanza MD documented in this encounter [facility] Work Phone: 08-14-2022 History of Present illness [...] & Ankle Surgery documented in this encounter [facility] 07-08-2022 Note Addended by: DULCE MARIA MCLAIN on: 07/08/2022 02:25 PM Modules accepted: Orders [facility] 07-08-2022 Note Addended by: DULCE MARIA MCLAIN on: 07/08/2022 02:25 PM Modules accepted: Orders [facility] 07-08-2022 Note Addended by: DULCE MARIA MCLAIN on: 07/08/2022 02:25 PM Modules accepted: Orders [facility] 07-08-2022 Miscellaneous Notes Addended by: DULCE MARIA ZUNIGA on: 07/08/2022 02:25 PM Modules accepted: Orders documented in this encounter [facility] 07-08-2022 History of Present illness Narrative [...] & Ankle Surgery documented in this encounter [facility] 01-28-2022 History of Present illness Narrative [...] C) (Infrared) Laboratory and Additional Data Reviewed: Reviewed:[id number]} XR Foot Right 3+ Views (Standard) X-rays 3 views right foot: Patient has the beginning of an inferior calcaneal heel spur XR Foot Left 3+ Views (Standard) X-rays 3 views left foot: Patient has the beginning of an inferior calcaneal heel spur documented in this encounter [facility] 01-14-2022 History of Present illness Narrative Patient Name: Juan Jose Bowers MR #: [id number] : 1985 Gender: female. Date of Consultation: [...] to aggravate it. Patient is tried some [id number] anti-inflammatories last 6 months without improvement Assessment [...] as follows: Prescribed dispensed 1 pair of Sargeant straps for both feet. Patient was instructed [...] above physician 01/14/22 documented in this encounter [facility] 11-13-2021 Note PROCEDURE DETAILS Preoperative Diagnosis: Carpal tunnel syndrome, left upper limb, G56.02 Postoperative Diagnosis: Carpal tunnel syndrome, left upper limb, G56.02 Surgeon: Manoj Ojeda Resident/Fellow/Other Cardiac Technologist: None of these were associated with this [...] carpal ligament was incised sharply using a [place] blade this exposed some of the contents [...] patient was awakened from anesthesia transferred to [facility] taken to PACU in stable condition. Patient [...] Updated: 13-Nov-2021 14:27 by Manoj Ojeda () [facility] 11-13-2021 History of Present illness Narrative Patient [...] wound, as well as tenderness with palpation. [facility] 300 Work Phone: 11-13-2021 History of [...] wound, as well as tenderness with palpation. [facility] 300 Work Phone: 11-13-2021 History of [...] is hopeful for slow improvement with time. [facility] 300 Work Phone: 11-13-2021 Note History [...] Last Updated: 13-Nov-2021 11:54 by Manoj Ojeda) [facility] 10-28-2021 Note PROCEDURE DETAILS Preoperative Diagnosis: Carpal tunnel syndrome, right upper limb, G56.01 Postoperative Diagnosis: Carpal tunnel syndrome, right upper limb, G56.01 Surgeon: Manoj Ojeda Resident/Fellow/Other Cardiac Technologist: None of these were associated with this [...] carpal ligament was incised sharply using a [place] blade this exposed some of the contents [...] patient was awakened from anesthesia transferred to [facility] taken to PACU in stable condition. Patient [...] Updated: 28-Oct-2021 12:25 by Manoj Ojeda () [facility] 10-28-2021 History of Present illness Narrative Patient [...] carpal tunnel release of the left wrist. [facility] 300 Work Phone: 10-28-2021 History of Present [...] carpal tunnel release of the left wrist. [facility] 300 Work Phone: 10-28-2021 Note History of [...] Note Completion Last Updated: 28-Oct-2021 10:02 by Mnaoj Ojeda () [facility] 08-09-2021 History of Present illness Narrative Pt presents with a few concerns today.Periods, have always been slightly irregular ,heavy or light, longer or shorter, but states hasn't had one since August. Has done a home hcg test and was negative , had vasectomy. She has a learning technologies specialist appt in a few weeks. Pap last [...] and they seemed to make pain worse. -[facility] Work Phone: 07-22-2021 History of Present [...] that radiates up in to the elbow. -[facility] 300 Work Phone: [...] that radiates up in to the elbow. [facility] 300 Work Phone: Evaluation note Diagnosis Leg swelling- Primary Swelling of limb Rash Rash and other nonspecific skin eruption documented in this encounter [facility] Work Phone: Evaluation note* Diagnosis Numbness and [...] Onset Date Resolution Status Irregular menstrual bleeding [facility] Work Phone: Evaluation note* Diagnosis [...] skin, site unspecified documented in this encounter [facility] Work Phone: Evaluation note* Diagnosis Contusion of right ankle, initial encounter- Primary [facility] [place] Diagnosis Rash and nonspecific skin eruption- Primary Rash and other nonspecific skin eruption documented in this encounter [facility] Work Phone: Evaluation note* Diagnosis Bilateral elbow joint pain- Primary documented in this encounter [facility] Work Phone: Evaluation note* Diagnosis Bilateral elbow joint pain- Primary documented in this encounter [facility] Work Phone: Evaluation noteNo assessment information available [facility] Work Phone: Evaluation note* Diagnosis Bilateral elbow joint pain documented in this encounter [facility] Work Phone: Evaluation note* Diagnosis Bilateral elbow joint pain Bilateral elbow joint pain documented in this encounter [facility] Work Phone: History of Present illness Narrative* [...] sees specialist for meds for that . [facility] 205 DO Work Phone: History of Present [...] sees specialist for meds for that . [facility] Work Phone: Hospital Discharge instructions* Attachments The following attachments cannot be sent through Care Everywhere. * Rash (Gambian) documented in this [facility] Work Phone: Hospital Discharge instructions* Attachments The following attachments cannot be sent through Care Everywhere. * Acute Pain, Adult (Gambian) * Contusion Discharge Instructions (Gambian) [facility] Additional Instructions You tested negative for COVID/influenza/RSV. At this time with your fever and bodyaches I suspect you have some kind of viral illness. You can alternate Tylenol and ibuprofen every 3 hours as needed, rest and drink plenty of fluids. If you develop new or worsening symptoms please be reevaluated.[facility] Work Phone: Instructions* Attachments The following attachments cannot be sent through Care Everywhere. * Plantar Fasciitis (Gambian) [facility] (narrative)* Consultation (Routine) - Authorized Specialty Diagnoses / Procedures Referred By Ingrid t Referred To Contact Dermatology Diagnoses Atypical nevus Procedures VA OFFICE/OUTPATIENT NEW HIGH MDM 60-74 MINUTES Rosa Isela Lanza MD [address] [facility] Medical Office Building [place] [id number] Referral ID Status Reason Start Date Expiration Date Visits Requested Visits Authorized [id number] Authorized Specialty Services Required 09/15/2022 03/14/2023 1 1 [facility] Work Phone: Reason for referral (narrative)No [facility] for [facility]: Reason for visit Narrative* Imaging (Routine) - Authorized Specialty Diagnoses / Procedures Referred By Ingrid le Referred To Contact Radiology Diagnoses Bilateral elbow joint pain Procedures XR elbow 3+ views bilateral Leb, Genie Palomino MD [address] [place] [id number] Phone: tel: fax: Referral ID Status Reason Start Date Expiration Date Visits Requested Visits Authorized [id number] Authorized Perform Procedure 05/23/2024 05/23/2025 1 1 [facility] Work Phone: Discharge Instructions The following attachments cannot be sent through Care Everywhere. 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 Yes May 22, 2024 7:05pm Name of Medical Power of Choke Reamer May 22, 2024 7:05pm Reason for Referral Status Reason Specialty Diagnoses / Procedures Referre d By Contact Referred To Contact Open Radiology Diagnoses Leg swelling Rash Procedures VL DUP LOWER EXTREMITY VENOUS BILATERAL Yuliana Bailey MD [address] [place] [address] Specialty Diagnoses / Procedures Referred By Ingrid le Referred To Contact Neurology Diagnoses Numbness and tingling of hand Rosa Isela Lanza MD [address] [place] [address] Sohan Christopher MD [address] [address] Referral ID Status Reason Start Date Expiration Date V isits Requested Visits Authorized [id number] Authorized 06/06/2021 06/06/2022 1 1 Referral ID Status Reason Start Date Expiration Date Visits Re quested Visits Authorized [id number] Closed 06/06/2021 06/06/2022 1 1 Specialty Diagnoses / Procedures Referred By Ingrid le Referred To Contact Podiatry Diagnoses Right foot pain Rosa Isela Lanza MD [address] [place] [address] [facility] [place] [address] [place] [address] Referral ID Status Reason Start Date Expiration Date V isits Requested Visits Authorized [id number] Pending Review 12/26/2021 12/26/2022 1 1 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; HAS BEEN ONGOING FOR A COUPLE YEARS BUT GETTING WORSE.Chief Complaint: JUAN JOSE BOWERS is here with a chief complaint of C/O RT ARM NUMBNESS AND TINGLING; 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; HAS BEEN ONGOING FOR A COUPLE [...] pain Rosa Isela Lanza MD [address] [address] Phone: tel: fax: Referral ID Status Reason Start Date Expiration Date Visits Requested Visits Authorized [id number] Authorized Specialty Services Required 05/06/2024 05/06/2025 1 1 INFORMATION SOURCE (unrecogn ized section and content) DATE CREATED AUTHOR 03/30/2018 [facility] tracytal DATE CREATED AUTHOR AUTHOR'S ORGANIZ ATION 12/17/2020 [facility] DATE CREATED AUTHOR AUTHOR'S ORGANIZ ATION 12/19/2020 [facility] DATE CREATED AUTHOR AUTHOR'S ORGANIZ ATION 12/25/2021 [facility] DATE CREATED AUTHOR AUTHOR'S ORGANIZ ATION 12/26/2021 [facility] DATE CREATED AUTHOR AUTHOR'S ORGANIZ ATION 05/12/2022 [facility] DATE CREATED AUTHOR AUTHOR'S ORGANIZ ATION 08/15/2022 [facility]atory DATE CREATED AUTHOR AUTHOR'S ORGANIZ ATION 01/28/2023 [facility] DATE CREATED AUTHOR AUTHOR'S ORGANIZ ATION 08/05/2023 [facility] DATE CREATED AUTHOR AUTHOR'S ORGANIZ ATION 05/28/2024 [facility] DATE CREATED AUTHOR AUTHOR'S ORGANIZ ATION 06/03/2024 [facility] DATE CREATED AUTHOR AUTHOR'S ORGANIZ ATION 06/03/[address] [facility] [place] Ambulatory DATE CREATED AUTHOR AUTHOR'S ORGANIZ ATION 06/16/2024 [facility] Care Teams (unrecognized sec tion and content) Washer Engineer Relationship Specialty Start Date End Date Rosa Isela Lanza MD [address] [place] [address] PCP - General Family Medicine 06/06/21 Washer Engineer Relationship Specialty Start Date End Date Rosa Isela Lanza MD [address] [place] [address] PCP - General Family Medicine 06/06/21 Washer Engineer Relationship Specialty Start Date End Date Rosa Isela Lanza MD [address] [place] [address] PCP - General Family Medicine 06/06/21 Washer Engineer Relationship Specialty Start Date End Date Rosa Isela Lanza MD [address] [place] [address] PCP - General Family Medicine 06/06/21 Washer Engineer Relationship Specialty Start Date End Date Rosa Isela Lanza MD [address] [place] [phone] PCP - General Family Medicine 06/06/21 Washer Engineer Relationship Specialty Start Date End Date Rosa Isela Lanza MD [address] [place], [place] [phone] PCP - General Family Medicine 06/06/21 Washer Engineer Relationship Specialty Start Date End Date Rosa Isela Lanza MD [address] [place], [place] [phone] PCP - General Family Medicine 06/06/21 Washer Engineer Relationship Specialty Start Date End Date Rosa Isela Lanza MD [address] [place], [place] [phone] PCP - General Family Medicine 06/06/21 Washer Engineer Relationship Specialty Start Date End Date Rosa Isela Lanza MD [address] [place] [address] Medical [place] [phone] PCP - General Family Medicine 09/11/22 Washer Engineer Relationship Specialty Start Date End Date Alex Katz DO [address] [place] [address] PCP - General 12/13/20 Washer Engineer Relationship Specialty Start Date End Date Alex Katz DO [address] [place] [address] PCP - General 12/13/20 Washer Engineer Relationship Specialty Start Date End Date Rosa Isela Lanza MD [address] [facility] Medical Office [place] [phone] PCP - General Family Medicine 09/11/22 Washer Engineer Relationship Specialty Start Date End Date Rosa Isela Lanza MD [address] [address] PCP - General Family Medicine 09/11/22 Washer Engineer Relationship Specialty Start Date End Date Rosa Isela Lanza MD [address] [address] PCP - General Family Medicine 09/11/22 Team Status: Active Member Role Status Dates Dr. Alex Katz , DO Primary Care Provider Active Team Status: Inactive Member Role Status Dates Dr. Alex Katz , DO Primary Care Provider Active Start: May 22, 2024 End: May 22, 2024 Dr. Km Lock , DO Emergency Provider Active Start: May 22, 2024 End: May 22, 2024 Washer Engineer Relationship Specialty Start Date End Date Rosa Isela Lanza MD [address] [address] PCP - General Family Medicine 09/11/22 Washer Engineer Relationship Specialty Start Date End Date Rosa Isela Lanza MD [address] [address] PCP - General Family Medicine 09/11/22 Washer Engineer Relationship Specialty Start Date End Date Rosa Isela Lanza MD [address] [address] PCP - General Family Medicine 09/11/22 Goals [...] BE BASED ON THE PRIMARY CLINICAL RECORDS. [facility] [employer], [facility]. provides no warranty or guarantee of the accuracy or completeness of information in this document.
== END | disposition home or self-care (01) ==
LOC: OPBI 07:28
PROVIDERS: PCP Family Medicine; Referring Provider Nurse Practitioner Family; Visit Provider Nurse Practitioner Family
DX: Z12.31 Encounter for screening mammogram for malignant neoplasm of breast (principal)
CPT/HCPCS: 77063; 77067

== ENCOUNTER → 2024-10-17 | Outpatient (CLI) | payer OTHER, SELFPAY ==
[2024-10-17 15:56] LABS: HIV Nonreactive (Nonreactive); Hepatitis B Surface Antigen Nonreactive (Nonreactive); Hepatitis C Antibody Nonreactive (Nonreactive); Syphilis Antibodies Nonreactive (Nonreactive)
[2024-10-20 05:07] LABS: Chlamydia By Nucleic Acid AMP Negative (Negative); Gonococcus By Nucleic Acid AMP Negative (Negative)
== END | disposition home or self-care (01) ==
PROVIDERS: PCP Family Medicine; Visit Provider Nurse Practitioner Family
DX: Z11.3 Encounter for screening for infections with a predominantly sexual mode of transmission (principal)
CPT/HCPCS: 36415; 86703; 86780; 86803; 87340; 87491; 87591